=== PATIENT | male | born 1960 | race Caucasian/White ===

== ENCOUNTER 2021-07-06 20:00 | Inpatient (IN) | payer MEDICARE, MEDICAID ==
[~2021-07-06] VITALS: Ht 167.6 cm; Wt 82.9 kg
[~2021-07-06 20:00] MED LIST: ALBU2.5V5 NEB; ALEN70TA71 PO; APIX5TAB PO; ASPI81TA59 PO; ATOR20TA58 PO; AZIT250T PO; BENZ1LOZ48 MM; CEFD300C PO; CLON1TAB PO; CLONAZEPAM1 MG PO; DEXA4TAB PO; DILT120C99 PO; DOXY-96 PO; DOXY100T PO; DULO30CA2 PO; HYDR-2761 PO; HYDR12.575 PO; IPRA3AMP29 NEB; LACT1CAP6 PO; LISI10TA PO; METH40VI IJ; OMEP40CA7 PO; ORPH100T PO; OXYC5TAB4 PO; PANT40GR PO; PRED1TAB3 PO; PRED20TA PO; PRIM50TA24 PO; QUET300T5 PO; ROFL500T7 PO; TAMS0.4C97 PO
--- NOTE | 2021-07-06 20:00 | NUR ---
Admit from [facility] via EMS. Pt states he was standing on a bed, reaching for the vent that was high on the wall, and fell off bed. C/o sharp lower back pain rating 9/10. C/o chronic numbness/tingling of left arm. Wears dark glasses, "the light hurts my eyes." Has bilateral arm tremors. States he is homeless and sometimes stays w/ his son in a hotel. Had Covid May 2021, on vent here at [facility], no vaccine received.
[2021-07-06] MEDS ORDERED: HYDROcodone/APAP 10/325 1 TAB TABLET PO PRN (21:30)
[2021-07-06] MEDS ORDERED: ACETAMINOPHEN 325 MG TABLET. PO PRN (21:45)
[2021-07-06 22:18] LABS: BASO % 0 % (0-3); EOS % 0 % (0-3); HEMATOCRIT 31.6 % (39.0-53.0); HEMOGLOBIN 10.1 g/dL (13.0-17.5); LYMPH # 1.6 x10^3/uL (1.0-4.8); LYMPH % 19 % (24-48); MEAN CORPUSCULAR HEMOGLOBIN 28 pg (25-35); MEAN CORPUSCULAR HGB CONC 32 g/dL (31-37); MEAN CORPUSCULAR VOLUME 87 fL (79-100); MONO # 0.6 x10^3/uL (0.0-1.1); MONO % 7 % (0-9); NEUT # 5.8 x10^3/uL (1.8-7.7); NEUT % 73 % (31-73); PLATELET COUNT 334 x10^3/uL (140-400); RED BLOOD COUNT 3.62 x10^6/uL (4.30-5.70)
[2021-07-06] MEDS: APIXABAN 5 MG TABLET. PO SCH (22:21)
[2021-07-06] MEDS: QUEtiapine 300 MG TAB.ER.24H. PO SCH (22:21)
[2021-07-06] MEDS: ATORVASTATIN CALCIUM 20 MG TABLET PO SCH (22:21)
[2021-07-06] MEDS: PRIMIDONE 50 MG TABLET PO SCH (22:22)
[2021-07-06] MEDS: clonazePAM 0.5 MG TABLET PO SCH (22:22)
[2021-07-06] MEDS: HYDROmorphone 2 MG/ML VIAL IVP PRN (22:33)
[2021-07-06 22:42] LABS: PROTHROMBIN TIME PATIENT 13.3 SEC (11.7-14.0)
[2021-07-06 22:47] LABS: CALCIUM 7.8 mg/dL (8.5-10.1); CREATININE 0.6 mg/dL (0.7-1.3); GFR 137.4; POTASSIUM 3.7 mmol/L (3.5-5.1)
[2021-07-06 23:00] VITALS: BP 154/97
[2021-07-07] MEDS: KETOROLAC 30 MG/ML VIAL. IVP PRN (02:18)
[2021-07-07 03:00] VITALS: BP 132/86
[2021-07-07] MEDS: HYDROmorphone 2 MG/ML VIAL IVP PRN ×5 (05:10→23:16)
--- NOTE | 2021-07-07 05:26 | NUR ---
Patient's chart states he is + for the following: [place], AFib, hyperthyroid, PTSD, bipolar disease, + HIV, +MRSA. Patient denies all of those conditions. "I don't even know what they mean." Patient states he reached grade 11 in high school and is "somewhat literate."
[2021-07-07] MEDS: ALBUTEROL SULFATE 2.5 MG/3 ML NEBU. NEB PRN (05:40)
[2021-07-07 07:00] VITALS: BP 128/84
[2021-07-07] MEDS: IPRATRPIUM/ALBUTEROL 0.5/2.5MG 3 ML NEBU. NEB SCH ×4 (07:26→19:56)
[2021-07-07] MEDS: PANTOPRAZOLE 40 MG TABLET.DR. PO SCH (07:30)
--- NOTE | 2021-07-07 07:47 | PDOC1 ---
History and Physical Date of Service: DOS: DATE: 07/07/21 TIME: 07:46 Chief Complaint: Chief Complain: Back pain after a fall History of Present Illness: HPI: Patient is a 61-year-old male with past medical history of COPD, hypertension who presents from [facility] ED after a fall experiencing back pain after that fall. Back pain is 7 out of 10 normally for his chronic back pain but after this incident the pain is 10 out of 10. Patient states that he was at a hotel room adjusting the heater on top of his bed and then he slipped and fell. Patient states he landed on the lower side of his back. Denies any syncope or loss of consciousness or dizziness. Patient is on 3 L home O2 for his COPD. Patient did have Covid pneumonia 1 month ago. Denies fevers, chest pain, abdom inal pain, diarrhea, bladder or bowel incontinence or numbness to his lower extremities. Past Medical/Surgical History: PMH/PSH: History of anemia, asthma, CAD, COPD, hypertension, Covid pneumonia 1 month ago, chronic back pain Tonsillectomy Allergies: Allergies: Coded Allergies: lactose (Verified Allergy, Intermediate, Unknown, 07/06/21) "sneeze" Family History: Family History: Reviewed with no relevant findings Social History: Social History: Former smoker, quit about 1 year ago. Denies any alcohol or drug abuse Current Medications: Current Medications Current Medications Acetaminophen/ Hydrocodone Bitart (Lortab 10/325) 1 tab PRN Q6HRS PRN PO PAIN; Start 07/06/21 at 21:30 Ketorolac Tromethamine (Toradol 30mg Vial) 30 mg PRN Q6HRS PRN IVP INFLAMMATION Last administered on 07/07/21at 02:18; Start 07/06/21 at 21:30; Stop 07/11/21 at 21:29 Hydromorphone HCl (Dilaudid) 0.2 mg PRN Q2HRS PRN IVP PAIN Last administered on 07/07/21at 05:10; Start 07/06/21 at 21:30 Albuterol Sulfate (Ventolin Neb Soln) 2.5 mg PRN Q4HRS PRN NEB SHORTNESS OF BREATH Last administered on 07/07/21at 05:40; Start 07/06/21 at 21:45 Atorvastatin Calcium (Lipitor) 20 mg HS PO Last administered on 07/06/21at 22:21; Start 07/06/21 at 22:00 Albuterol/ Ipratropium (Duoneb) 3 ml RTQID NEB Last administered on 07/07/21at 07:26; Start 07/07/21 at 08:00 Primidone (Mysoline) 50 mg BID PO Last administered on 07/06/21at 22:22; Start 07/06/21 at 22:00 Roflumilast (Daliresp) 500 mcg DAILY PO ; Start 07/07/21 at 09:00 Clonazepam (KlonoPIN) 1 mg TID PO Last administered on 07/06/21at 22:22; Start 07/06/21 at 22:00 Non-Formulary Medication (Omeprazole ) 1 cap DAILY PO ; Start 07/07/21 at 09:00; Status UNV Quetiapine Fumarate (SEROquel XR) 300 mg QHS PO Last administered on 07/06/21at 22:21; Start 07/06/21 at 22:00 Acetaminophen (Tylenol) 650 mg PRN Q6HRS PRN PO MILD PAIN / TEMP > 100.3'F; Start 07/06/21 at 21:45 Lisinopril (Prinivil) 10 mg DAILY PO ; Start 07/07/21 at 09:00 Apixaban (Eliquis) 5 mg BID PO Last administered on 07/06/21at 22:21; Start 07/06/21 at 22:00 Diltiazem HCl (Cardizem 24hr Cd) 120 mg DAILYBFRSUP PO ; Start 07/07/21 at 17:00 Prednisone (Prednisone) 5 mg DAILY PO ; Start 07/07/21 at 09:00 Pantoprazole Sodium (Protonix) 40 mg DAILYAC PO ; Start 07/07/21 at 07:30 Influenza Virus Vaccine Quadrival (Flulaval Quad [id number] Syringe) 0.5 ml ONCE ONCE VAX IM ; Start 07/07/21 at 09:00; Stop 07/07/21 at 09:01 Active Scripts Active Oxycodone Hcl Immed.release (Oxycodone Hcl) 5 Mg Tablet 30 Mg PO PRN Q6HRS PRN 15 Days Dexamethasone 4 Mg Tablet 1 Tab PO DAILY 7 Days Klonopin (Clonazepam) 1 Mg Tablet 1 Mg PO TID 30 Days Reported Seroquel (Quetiapine Fumarate) 300 Mg Tablet 1 Tab PO QHS Mysoline (Primidone) 50 Mg Tablet 1 Tab PO BID 30 Days Duoneb 0.5-3(2.5) Mg/3 Ml (Albuterol/Ipratropium) 3 Ml Ampul.neb 3 Ml NEB QID Atorvastatin Calcium 20 Mg Tablet 1 Tab PO HS Omeprazole 40 Mg Capsule.dr 1 Cap PO DAILY Alendronate Sodium 70 Mg Tablet 70 Mg PO WEEKLY Daliresp (Roflumilast) 500 Mcg Tablet 500 Mcg PO DAILY Albuterol Sulfate Neb Soln (Albuterol Sulfate) 2.5 Mg/3 Ml Vial.neb 1 Vial NEB PRN Q4HRS ROS: Review of Systems Review of System REVIEW OF SYSTEMS: GENERAL: Denies weakness SKIN: No bruising, hair changes or rashes. EYES: No blurred, double or loss of vision. NOSE AND THROAT: No history of nosebleeds, hoarseness or sore throat. HEART: No history of palpitations, chest pain or shortness of breath on exertion. LUNGS: Denies cough, hemoptysis, wheezing or shortness of breath. GASTROINTESTINAL: Denies changes in appetite, nausea, vomiting, diarrhea or constipation. GENITOURINARY: No history of frequency, urgency, hesitancy or nocturia. NEUROLOGIC: Denies history of numbness, tingling, or tremor. PSYCHIATRIC: No history of panic, anxiety or depression. ENDOCRINE: No history of heat or cold intolerance, polyuria or polydipsia. EXTREMITIES: Denies joint pain, pain on walking or stiffness. Physical Exam: Vital Signs: Vital Signs Date Time Temp Pulse Resp B/P (MAP) Pulse Ox O2 Delivery O2 Flow Rate FiO2 07/07/21 07:31 94 Nasal Cannula 3.0 07/07/21 05:10 20 07/07/21 03:00 98.1 118 132/86 (101) 98.1 Physcial Exam: GEN: No apparent distress. Alert and oriented HEENT: Normal cephalic, atraumatic, external auditory canals are patent EYES: Extraocular muscles are intact, pupil are equally round and reactive to light and accommodation MUSCULOSKELETAL: Well developed , well nourished, good range of motion ENDOCRINE: No thyromegaly was palpated LYMPHATICS: No cervical chain or axillary nodes were noted HEMATOPOIETIC: No bruising NECK: Supple, no JVD, no thyromegaly was noted LUNGS: Clear to auscultation in all lung paz without rhonchi or wheezing HEART: RRR, S!, S2 present. Peripheral pulses intact, no obvious murmurs noted ABDOMEN: Soft, nontender. Positive bowel sounds, no organomegaly, normal bowel sounds EXTREMITIES: Without clubbing, cyanosis, or edema. Pedal pulses intact. Ne gative Homans sign NEUROLOGIC: Normal speech and tone. A&O x 3, moves all extremities, no obvious focal deficits PSYCHIATRIC: Normal affect, normal mood. Stable SKIN: No ulcerations or rashes, good skin turgor, no jaundice VASCULAR: Good capillary refill, neurovascular bundle appears to be intact Labs: Labs: Laboratory Tests Test 07/06/21 22:00 White Blood Count 8.0 x10^3/uL (4.0-11.0) Red Blood Count 3.62 x10^6/uL (4.30-5.70) Hemoglobin 10.1 g/dL (13.0-17.5) Hematocrit 31.6 % (39.0-53.0) Mean Corpuscular Volume 87 fL (79-100) Mean Corpuscular Hemoglobin 28 pg (25-35) Mean Corpuscular Hemoglobin Concent 32 g/dL (31-37) Red Cell Distribution Width 15.0 % (11.5-14.5) Platelet Count 334 x10^3/uL (140-400) Neutrophils (%) (Auto) 73 % (31-73) Lymphocytes (%) (Auto) 19 % (24-48) Monocytes (%) (Auto) 7 % (0-9) Eosinophils (%) (Auto) 0 % (0-3) Basophils (%) (Auto) 0 % (0-3) Neutrophils # (Auto) 5.8 x10^3/uL (1.8-7.7) Lymphocytes # (Auto) 1.6 x10^3/uL (1.0-4.8) Monocytes # (Auto) 0.6 x10^3/uL (0.0-1.1) Eosinophils # (Auto) 0.0 x10^3/uL (0.0-0.7) Basophils # (Auto) 0.0 x10^3/uL (0.0-0.2) Prothrombin Time 13.3 SEC (11.7-14.0) Prothromb Time International Ratio 1.0 (0.8-1.1) Sodium Level 141 mmol/L (136-145) Potassium Level 3.7 mmol/L (3.5-5.1) Chloride Level 100 mmol/L (98-107) Carbon Dioxide Level 41 mmol/L (21-32) Anion Gap 0 (6-14) Blood Urea Nitrogen 10 mg/dL (8-26) Creatinine 0.6 mg/dL (0.7-1.3) Estimated GFR (Cockcroft-Gault) 137.4 Glucose Level 90 mg/dL (70-99) Calcium Level 7.8 mg/dL (8.5-10.1) Laboratory Tests Test 07/06/21 22:00 White Blood Count 8.0 x10^3/uL (4.0-11.0) Red Blood Count 3.62 x10^6/uL (4.30-5.70) Hemoglobin 10.1 g/dL (13.0-17.5) Hematocrit 31.6 % (39.0-53.0) Mean Corpuscular Volume 87 fL (79-100) Mean Corpuscular Hemoglobin 28 pg (25-35) Mean Corpuscular Hemoglobin Concent 32 g/dL (31-37) Red Cell Distribution Width 15.0 % (11.5-14.5) Platelet Count 334 x10^3/uL (140-400) Neutrophils (%) (Auto) 73 % (31-73) Lymphocytes (%) (Auto) 19 % (24-48) Monocytes (%) (Auto) 7 % (0-9) Eosinophils (%) (Auto) 0 % (0-3) Basophils (%) (Auto) 0 % (0-3) Neutrophils # (Auto) 5.8 x10^3/uL (1.8-7.7) Lymphocytes # (Auto) 1.6 x10^3/uL (1.0-4.8) Monocytes # (Auto) 0.6 x10^3/uL (0.0-1.1) Eosinophils # (Auto) 0.0 x10^3/uL (0.0-0.7) Basophils # (Auto) 0.0 x10^3/uL (0.0-0.2) Prothrombin Time 13.3 SEC (11.7-14.0) Prothromb Time International Ratio 1.0 (0.8-1.1) Sodium Level 141 mmol/L (136-145) Potassium Level 3.7 mmol/L (3.5-5.1) Chloride Level 100 mmol/L (98-107) Carbon Dioxide Level 41 mmol/L (21-32) Anion Gap 0 (6-14) Blood Urea Nitrogen 10 mg/dL (8-26) Creatinine 0.6 mg/dL (0.7-1.3) Estimated GFR (Cockcroft-Gault) 137.4 Glucose Level 90 mg/dL (70-99) Calcium Level 7.8 mg/dL (8.5-10.1) Images: Images CT images reviewed at [facility] showing an acute L1 vertebral compression fracture with mild retropulsion and mild to moderate central stenosis. Degenerative changes resulting in mid central stenosis at L4-L5 Assessment/Plan Assessment/Plan Acute L1 compression fracture with mild retropulsion History of COPD History of hypertension History of CAD History of asthma Admit to hospitalist service for further management Neurosurgery consultappreciate recommendations. For now no surgical intervention. Pending TLSO brace Pain specialist consult with Dr helms. IV n.p.o. pain control Pending vitamin D level PT OT evaluation when cleared by neurosurgery Lovenox for DVT prophylaxis Cardiac diet CODE STATUS full Discussed with RN and SW Disposition inpatient management as above DPOA: Undesignated Justifications for Admission Other Justification SIMONA JACK MD Jul 07, 2021 07:47
[2021-07-07] MEDS: ROFLUMILAST 500 MCG TABLET. PO SCH (08:23)
[2021-07-07] MEDS: APIXABAN 5 MG TABLET. PO SCH ×2 (08:24→20:08)
[2021-07-07] MEDS: LISINOPRIL 10 MG TABLET PO SCH (08:24)
[2021-07-07] MEDS: PRIMIDONE 50 MG TABLET PO SCH ×2 (08:24→20:08)
[2021-07-07] MEDS: predniSONE 5 MG TABLET PO SCH (08:24)
[2021-07-07] MEDS ORDERED: FLU VACC QUAD 21-22 (6MOS+) PF 0.5 ML SYRINGE. VAX IM ONE (09:00)
[2021-07-07] MEDS: clonazePAM 0.5 MG TABLET PO SCH ×3 (09:00→20:08)
[2021-07-07] MEDS ORDERED: NON FORMULARY ITEM (Omeprazole 1 CAP) PO SCH (09:00)
--- NOTE | 2021-07-07 10:55 | RAD ---
MR LUMBAR SPINE [id number] History: Reason: Focus on L1 compression fracture / Spl. Instructions: / History: Technique: Multiplanar, multi sequential MR imaging was performed of the lumbar spine. Comparison: CT July 06, 2021 Findings: Acute L1 vertebral body fracture involving the anterior and posterior aspects of the vertebral body. Moderate compression deformity centrally approximately 50 percent height loss. Fluid within the fract ure cleft. There is paravertebral edema with right psoas intramuscular edema. There is retropulsion c ontributing to moderate canal narrowing. Conus terminates at the normal location. No evidence of nerve root clumping. L1-L2: Small disc bulge. Mild facet arthropathy. No canal narrowing at the disc space. No neuroforam inal narrowing. L2-L3: Minimal disc bulge. No canal or neuroforaminal narrowing. L3-L4: Small disc bulge. Mild facet arthropathy. No canal or neuroforaminal narrowing. L4-L5: Small disc extrusion extending slightly inferiorly. Minimal canal narrowing. Subarticular rec ess narrowing. Mild facet arthropathy. Mild bilateral neuroforaminal narrowing. L5-S1: Minimal disc bulge. Mild facet arthropathy. No canal narrowing. Mild bilateral neuroforaminal narrowing. Impression: 1. Acute L1 vertebral body fracture with retropulsion contributing to moderate canal narrowing. 2. L1 paravertebral edema with right psoas intramuscular edema. 3. Mild lumbar spondylosis most prominent L4-5. Electronically signed by: Dann Godfrey DO (07/07/2021 10:53 AM) [id number]
[2021-07-07 11:00] VITALS: BP 120/79
--- NOTE | 2021-07-07 13:03 | PDOC ---
Provider Note Date of Service: DATE: 07/07/21 TIME: 12:59 Provider Note Patient seen and examined consulted for L1 compression fracture fell off bed c/o back pain, denies LE symptoms, no B/B issues exam- back flat, tender, no echymosis, neuro inact review CT/ MRI- Acute moderately severe L1 compression fracture brace ordered Dr. Trinh consulted PT Hopefully surgery can be avoided will follow Justifications for Admission Other Justification LIZ GRIFFIN MD Jul 07, 2021 13:03
[2021-07-07 15:00] VITALS: BP 124/81
--- NOTE | 2021-07-07 15:46 | CONS ---
DATE OF CONSULTATION: 07/07/2021 ATTENDING PHYSICIAN: Nikolay Burrell MD REASON FOR CONSULTATION: The patient was seen at the request of Dr. Kong for rehab evaluation. HISTORY OF PRESENT ILLNESS: This is a 61-year-old right-handed male with known hypertension, chronic obstructive pulmonary disease, was admitted through the Emergency Room at [facility] after experiencing a fall off the bed while adjusting the heater in a hotel room and he complained of severe lower back pain without any radiation to the extremities. The patient was noted with L1 vertebral body compression fracture with retropulsion contributing to moderate canal narrowing and also paravertebral edema with right psoas intramuscular edema, mild lumbar spondylosis, most prominent at L4-L5 and multilevel mild degenerative disk disease and facet degenerative changes. The patient also had mild bilateral neural foraminal narrowing. mainly at L4-L5, L5-S1 level. The patient admits some chronic back pain, but not as bad at present one. Dr. Holly saw him and advised him to obtain lumbar corset. He is awaiting for it. He had mid back pain, more so while he is moving. The patient denies any numbness, tingling sensation in the extremities or any trouble with his bowel or bladder control, but he had an indwelling Velazco catheter since admission. PAST MEDICAL HISTORY: Also includes anemia, asthmatic bronchitis, chronic obstructive pulmonary disease, oxygen dependent at 3 liters per minute since 2011, coronary artery disease, hypertension. He had COVID-19 pneumonia about a month ago. PAST SURGICAL HISTORY: The patient is status post tonsillectomy ALLERGIES: HE IS KNOWN ALLERGIC TO LACTOSE. SOCIAL HISTORY: He lives with his son. Had a flight of stairs to manage with railing. He did not use any assistive devices. He is a former smoker, quit about a year ago. He denies any history of diabetes mellitus. He denies any abuse. PHYSICAL EXAMINATION: On physical exam today revealed a middle-aged male. He is alert, in no acute distress, follows commands appropriately. Moves all 4 extremities voluntarily where he had 4+/5 grade muscle strength. He had minimal to moderate degree of lower thoracic and lumbar paraspinal muscle spasm and tenderness to palpation over lower thoracic and lumbar paraspinal muscles extending over to sacroiliac joint area and straight leg raising test is negative bilaterally. He had 5/5 grade muscle strength in his extremities. Deep tendon reflexes are decreased overall with absent knee and ankle jerks and he had equal perception of touch and pinprick sensation bilaterally. He had painful range of motion of all 4 extremity joints. He is having significant pain while rolling from side to side. I have not tested his transfers or ambulation skills at this time. He had mild skin bruises over his feet other than that his skin is intact. ASSESSMENT: A middle-aged male with recent fall and L1 vertebral body compression fracture with associated degenerative disk disease and degenerative joint disease of lumbar vertebrae without any clinical evidence of lumbar radiculopathy, clinical evidence of peripheral neuropathy. The patient with chronic obstructive pulmonary disease, oxygen dependent, also history of hypertension, coronary artery disease, anemia, asthmatic bronchitis. RECOMMENDATIONS: Agree with the plan for lumbar corset and try to get him up afterwards. If his pain is interfering with his mobility to consider kyphoplasty. Dr. Kong, I appreciate asking me to participate in the care of this interesting patient. I will be glad to see him for followup with you on as needed basis. CARMELITA/SHU/JAREN DR: CARMELITA/alexis TID: [id number]
[2021-07-07] MEDS: tiZANidine 4 MG TABLET. PO SCH ×2 (15:50→22:09)
[2021-07-07] MEDS: LIDOCAINE (700MG/PATCH) PATCH. TD SCH (15:50)
--- NOTE | 2021-07-07 15:52 | NUR ---
SW following. Discussed with RN, pt sometimes stays with his son, 3.5L (uses oxygen at home), NPO. Pt had an MRI today. Possible kypho? SW will continue to follow.
[2021-07-07 19:20] VITALS: BP 122/77
[2021-07-07] MEDS ORDERED: METOPROLOL IV PUSH 5 MG/5 ML VIAL. IVP ONE (20:00)
[2021-07-07] MEDS: LIDO:MAALOX 1:1 20 ML SINGLE DOSE. PO PRN (20:07)
[2021-07-07] MEDS: PATCH REMOVAL. MC SCH (20:08)
[2021-07-07] MEDS: QUEtiapine 300 MG TAB.ER.24H. PO SCH (20:08)
[2021-07-07] MEDS: ATORVASTATIN CALCIUM 20 MG TABLET PO SCH (20:08)
[2021-07-07 23:10] VITALS: BP 124/78
[2021-07-08] MEDS: ALBUTEROL SULFATE 2.5 MG/3 ML NEBU. NEB PRN (00:46)
[2021-07-08 03:10] VITALS: BP 95/58
[2021-07-08] MEDS ORDERED: ALBUMIN HUMAN 25% 100 ML IV ONE (04:00)
[2021-07-08] MEDS ORDERED: HYDROmorphone 2 MG/ML VIAL IVP ONE (04:00)
[2021-07-08] MEDS: tiZANidine 4 MG TABLET. PO SCH ×3 (05:27→21:09)
[2021-07-08 07:00] VITALS: BP 93/48
[2021-07-08] MEDS: IPRATRPIUM/ALBUTEROL 0.5/2.5MG 3 ML NEBU. NEB SCH ×4 (07:30→20:23)
[2021-07-08] MEDS: LIDOCAINE (700MG/PATCH) PATCH. TD SCH (09:00)
[2021-07-08] MEDS: APIXABAN 5 MG TABLET. PO SCH ×2 (09:00→21:00)
[2021-07-08] MEDS: LISINOPRIL 10 MG TABLET PO SCH (09:00)
--- NOTE | 2021-07-08 09:26 | PDOC ---
PROGRESS NOTES Date of Service DATE: 07/08/21 TIME: 09:23 Subjective Subjective No new complaints. Objective Objective Vital Signs Date Time Temp Pulse Resp B/P (MAP) Pulse Ox O2 Delivery O2 Flow Rate FiO2 07/08/21 08:00 Nasal Cannula 3.5 07/08/21 07:30 89 07/08/21 07:00 97.8 98 24 93/48 (63) 97.8 Intake and Output 07/08/21 07:00 Intake Total 420 ml Output Total 365 ml Balance 55 ml Intake Oral 420 ml Output Urine Total 365 ml Physical Exam Physical Exam He is resting supine in bed and has not received lumbar corset yet and he had indwelling Velazco catheter in place. Plan Plan of Care To see how he does getting up and walking with brace on and if it helps ease his pain,home with home health follow up or transfer to SNF depending on his ability to get around. Comment Review of Relevant I have reviewed the following items ben (where applicable) has been applied. Labs Laboratory Tests Test 07/06/21 22:00 07/07/21 13:49 White Blood Count 8.0 x10^3/uL (4.0-11.0) Red Blood Count 3.62 x10^6/uL (4.30-5.70) Hemoglobin 10.1 g/dL (13.0-17.5) Hematocrit 31.6 % (39.0-53.0) Mean Corpuscular Volume 87 fL (79-100) Mean Corpuscular Hemoglobin 28 pg (25-35) Mean Corpuscular Hemoglobin Concent 32 g/dL (31-37) Red Cell Distribution Width 15.0 % (11.5-14.5) Platelet Count 334 x10^3/uL (140-400) Neutrophils (%) (Auto) 73 % (31-73) Lymphocytes (%) (Auto) 19 % (24-48) Monocytes (%) (Auto) 7 % (0-9) Eosinophils (%) (Auto) 0 % (0-3) Basophils (%) (Auto) 0 % (0-3) Neutrophils # (Auto) 5.8 x10^3/uL (1.8-7.7) Lymphocytes # (Auto) 1.6 x10^3/uL (1.0-4.8) Monocytes # (Auto) 0.6 x10^3/uL (0.0-1.1) Eosinophils # (Auto) 0.0 x10^3/uL (0.0-0.7) Basophils # (Auto) 0.0 x10^3/uL (0.0-0.2) Prothrombin Time 13.3 SEC (11.7-14.0) Prothromb Time International Ratio 1.0 (0.8-1.1) Sodium Level 141 mmol/L (136-145) Potassium Level 3.7 mmol/L (3.5-5.1) Chloride Level 100 mmol/L (98-107) Carbon Dioxide Level 41 mmol/L (21-32) Anion Gap 0 (6-14) Blood Urea Nitrogen 10 mg/dL (8-26) Creatinine 0.6 mg/dL (0.7-1.3) Estimated GFR (Cockcroft-Gault) 137.4 Glucose Level 90 mg/dL (70-99) Calcium Level 7.8 mg/dL (8.5-10.1) 25-Hydroxy Vitamin D Total 6.8 ng/mL (30-100) Laboratory Tests Test 07/07/21 13:49 25-Hydroxy Vitamin D Total 6.8 ng/mL (30-100) Medications Current Medications Acetaminophen/ Hydrocodone Bitart (Lortab 10/325) 1 tab PRN Q6HRS PRN PO PAIN; Start 07/06/21 at 21:30 Ketorolac Tromethamine (Toradol 30mg Vial) 30 mg PRN Q6HRS PRN IVP INFLAMMATION Last administered on 07/07/21at 02:18; Start 07/06/21 at 21:30; Stop 07/11/21 at 21:29 Hydromorphone HCl (Dilaudid) 0.2 mg PRN Q2HRS PRN IVP PAIN Last administered on 07/07/21at 23:16; Start 07/06/21 at 21:30 Albuterol Sulfate (Ventolin Neb Soln) 2.5 mg PRN Q4HRS PRN NEB SHORTNESS OF BREATH Last administered on 07/08/21at 00:46; Start 07/06/21 at 21:45 Atorvastatin Calcium (Lipitor) 20 mg HS PO Last administered on 07/07/21at 20:08; Start 07/06/21 at 22:00 Albuterol/ Ipratropium (Duoneb) 3 ml RTQID NEB Last administered on 07/08/21at 07:30; Start 07/07/21 at 08:00 Primidone (Mysoline) 50 mg BID PO Last administered on 07/07/21at 20:08; Start 07/06/21 at 22:00 Roflumilast (Daliresp) 500 mcg DAILY PO Last administered on 07/07/21at 08:23; Start 07/07/21 at 09:00 Clonazepam (KlonoPIN) 1 mg TID PO Last administered on 07/07/21at 20:08; Start 07/06/21 at 22:00 Non-Formulary Medication (Omeprazole ) 1 cap DAILY PO ; Start 07/07/21 at 09:00; Status UNV Quetiapine Fumarate (SEROquel XR) 300 mg QHS PO Last administered on 07/07/21at 20:08; Start 07/06/21 at 22:00 Acetaminophen (Tylenol) 650 mg PRN Q6HRS PRN PO MILD PAIN / TEMP > 100.3'F; Start 07/06/21 at 21:45 Lisinopril (Prinivil) 10 mg DAILY PO Last administered on 07/07/21at 08:24; Start 07/07/21 at 09:00 Apixaban (Eliquis) 5 mg BID PO Last administered on 07/07/21at 20:08; Start 07/06/21 at 22:00 Diltiazem HCl (Cardizem 24hr Cd) 120 mg DAILYBFRSUP PO Last administered on 07/07/21at 18:04; Start 07/07/21 at 17:00 Prednisone (Prednisone) 5 mg DAILY PO Last administered on 07/07/21at 08:24; Start 07/07/21 at 09:00 Pantoprazole Sodium (Protonix) 40 mg DAILYAC PO ; Start 07/07/21 at 07:30 Influenza Virus Vaccine Quadrival (Flulaval Quad [id number] Syringe) 0.5 ml ONCE ONCE VAX IM Last administered on 07/07/21at 10:27; Start 07/07/21 at 09:00; Stop 07/07/21 at 09:01; Status DC Tizanidine HCl (Zanaflex) 4 mg Q8HRS PO Last administered on 07/08/21at 05:27; Start 07/07/21 at 15:00 Lidocaine (Lidoderm) 1 patch DAILY TD Last administered on 07/07/21at 15:50; Start 07/07/21 at 15:00 Miscellaneous (Lidoderm Patch Removal) 1 ea QHS MC Last administered on 07/07/21at 20:08; Start 07/07/21 at 21:00 Multi-Ingredient Mouthwash/Gargle (Gi Cocktail) 20 ml PRN QID PRN PO abdominal pain Last administered on 07/07/21at 20:07; Start 07/07/21 at 20:00 Metoprolol Tartrate (Lopressor Vial) 5 mg 1X ONCE IVP Last administered on 07/07/21at 20:09; Start 07/07/21 at 20:00; Stop 07/07/21 at 20:01; Status DC Albumin Human 100 ml @ 100 mls/hr 1X ONCE IV Last administered on 07/08/21at 04:15; Start 07/08/21 at 04:00; Stop 07/08/21 at 04:59; Status DC Hydromorphone HCl (Dilaudid) 0.4 mg 1X ONCE IVP Last administered on 07/08/21at 05:28; Start 07/08/21 at 04:00; Stop 07/08/21 at 04:01; Status DC Active Scripts Active Oxycodone Hcl Immed.release (Oxycodone Hcl) 5 Mg Tablet 30 Mg PO PRN Q6HRS PRN 15 Days Dexamethasone 4 Mg Tablet 1 Tab PO DAILY 7 Days Klonopin (Clonazepam) 1 Mg Tablet 1 Mg PO TID 30 Days Reported Seroquel (Quetiapine Fumarate) 300 Mg Tablet 1 Tab PO QHS Mysoline (Primidone) 50 Mg Tablet 1 Tab PO BID 30 Days Duoneb 0.5-3(2.5) Mg/3 Ml (Albuterol/Ipratropium) 3 Ml Ampul.neb 3 Ml NEB QID Atorvastatin Calcium 20 Mg Tablet 1 Tab PO HS Omeprazole 40 Mg Capsule.dr 1 Cap PO DAILY Alendronate Sodium 70 Mg Tablet 70 Mg PO WEEKLY Daliresp (Roflumilast) 500 Mcg Tablet 500 Mcg PO DAILY Albuterol Sulfate Neb Soln (Albuterol Sulfate) 2.5 Mg/3 Ml Vial.neb 1 Vial NEB PRN Q4HRS Vitals/I & O Vital Sign - Last 24 Hours 07/07/21 07/07/21 07/07/21 07/07/21 11:00 11:42 15:00 15:18 Temp 97.8 97.6 97.8 97.6 Pulse 113 117 Resp 18 17 B/P (MAP) 120/79 (93) 124/81 (95) Pulse Ox 97 95 92 95 O2 Delivery Nasal Cannula Nasal Cannula Nasal Cannula Nasal Cannula O2 Flow Rate 3.5 3.0 3.5 3.0 07/07/21 07/07/21 07/07/21 07/07/21 18:04 19:20 19:50 19:58 Temp 98.8 98.8 Pulse 117 122 Resp 26 B/P (MAP) 124/81 122/77 (92) Pulse Ox 91 93 O2 Delivery Nasal Cannula Nasal Cannula Nasal Cannula O2 Flow Rate 3.5 3.5 3.0 07/07/21 07/07/21 07/07/21 07/07/21 20:09 21:02 22:09 23:10 Temp 98.7 98.7 Pulse 122 107 Resp 24 B/P (MAP) 122/77 124/78 (93) Pulse Ox 91 O2 Delivery Nasal Cannula Nasal Cannula Nasal Cannula O2 Flow Rate 3.5 3.5 3.5 07/07/21 07/08/21 07/08/21 07/08/21 23:16 00:12 03:10 05:28 Temp 98.6 98.6 Pulse 100 Resp 24 B/P (MAP) 95/58 (70) Pulse Ox 92 O2 Delivery Nasal Cannula Nasal Cannula Nasal Cannula Nasal Cannula O2 Flow Rate 3.5 3.5 3.5 3.5 07/08/21 07/08/21 07/08/21 07/08/21 06:21 07:00 07:30 08:00 Temp 97.8 97.8 Pulse 98 Resp 24 B/P (MAP) 93/48 (63) Pulse Ox 90 89 O2 Delivery Nasal Cannula Nasal Cannula Nasal Cannula Nasal Cannula O2 Flow Rate 3.5 5.0 4.0 3.5 Intake and Output 07/07/21 07/07/21 07/08/21 15:00 23:00 07:00 Intake Total 180 ml 240 ml Output Total 0 ml 215 ml 150 ml Balance 180 ml -215 ml 90 ml Justifications for Admission Other Justification JORGE OWEN MD Jul 08, 2021 09:26
[2021-07-08] MEDS: LIDO:MAALOX 1:1 20 ML SINGLE DOSE. PO PRN ×2 (09:36→20:00)
[2021-07-08] MEDS: PANTOPRAZOLE 40 MG TABLET.DR. PO SCH (09:36)
[2021-07-08] MEDS: PRIMIDONE 50 MG TABLET PO SCH ×2 (09:37→21:09)
[2021-07-08] MEDS: clonazePAM 0.5 MG TABLET PO SCH ×3 (09:37→21:09)
[2021-07-08] MEDS: predniSONE 5 MG TABLET PO SCH (09:37)
[2021-07-08] MEDS: ROFLUMILAST 500 MCG TABLET. PO SCH (09:37)
[2021-07-08 10:39] LABS: ALBUMIN 2.8 g/dL (3.4-5.0); ALBUMIN/GLOBULIN RATIO 0.9 (1.0-1.7); CREATININE 0.7 mg/dL (0.7-1.3); MAGNESIUM 1.9 mg/dL (1.8-2.4); POTASSIUM 4.4 mmol/L (3.5-5.1); TOTAL BILIRUBIN 0.3 mg/dL (0.2-1.0)
[2021-07-08 11:00] VITALS: BP 129/78
--- NOTE | 2021-07-08 13:29 | PDOC ---
[employer] PROGRESS NOTE Date of Service DOS: DATE: 07/08/21 TIME: 13:27 Chief Complaint Chief Complaint Assessment/Plan Acute L1 compression fracture with mild retropulsion History of COPD home O2 of 3 L nasal cannula History of hypertension History of CAD History of asthma Attempt ambulation with TLSO brace if patient has pain then he will proceed with IR for kyphoplasty Neurosurgery consultappreciate recommendations. For now no surgical intervention. Pain specialist consult with Dr helms. IV n.p.o. pain control Pending vitamin D level PT OT evaluation when [facility] Cardiac diet CODE STATUS full Discussed with RN and SW Disposition inpatient management as above DPOA: Undesignated History of Present Illness History of Present Illness 61-year-old male with past medical history of COPD, hypertension who presents from [facility] ED after a fall experiencing back pain after that fall. Back pain is 7 out of 10 normally for his chronic back pain but after this incident the pain is 10 out of 10. Patient states that he was at a hotel room adjusting the heater on top of his bed and then he slipped and fell. Patient states he landed on the lower side of his back. Denies any syncope or loss of consciousness or dizziness. Patient is on 3 L home O2 for his COPD. Patient did have Covid pneumonia 1 month ago. Denies fevers, chest pain, abdominal pain, diarrhea, bladder or bowel incontinence or numbness to his lower extremities. 07/08/2021 No acute events overnight. Patient seen and examined bedside complaining of some shortness of breath. Increasing requirements of O2 to 5 L nasal cannula. Will initiate breathing treatments as needed. Will obtain a cortisol level in the a.m. Patient states that he was taking prednisone 50 mg for his COPD. Patient's chart, labs, images were reviewed and discussed with RN Vitals/I&O Vitals/I&O: Vital Signs Date Time Temp Pulse Resp B/P (MAP) Pulse Ox O2 Delivery O2 Flow Rate FiO2 07/08/21 11:13 90 Nasal Cannula 5.0 07/08/21 11:00 98.1 111 24 129/78 (95) 98.1 I & O 07/07/21 07/07/21 07/08/21 15:00 23:00 07:00 Intake Total 180 ml 240 ml Output Total 0 ml 215 ml 150 ml Balance 180 ml -215 ml 90 ml Physical Exam General: Alert, Oriented X3, Cooperative Heart: Regular rate Lungs: Crackles Abdomen: Normal bowel sounds Extremities: No clubbing Skin: No rashes Labs Labs: Laboratory Tests Test 07/07/21 13:49 07/08/21 10:09 25-Hydroxy Vitamin D Total 6.8 ng/mL (30-100) Sodium Level 140 mmol/L (136-145) Potassium Level 4.4 mmol/L (3.5-5.1) Chloride Level 99 mmol/L (98-107) Carbon Dioxide Level 39 mmol/L (21-32) Anion Gap 2 (6-14) Blood Urea Nitrogen 17 mg/dL (8-26) Creatinine 0.7 mg/dL (0.7-1.3) Estimated GFR (Cockcroft-Gault) 115.0 BUN/Creatinine Ratio 24 (6-20) Glucose Level 97 mg/dL (70-99) Calcium Level 8.0 mg/dL (8.5-10.1) Magnesium Level 1.9 mg/dL (1.8-2.4) Total Bilirubin 0.3 mg/dL (0.2-1.0) Aspartate Amino Transf (AST/SGOT) 11 U/L (15-37) Alanine Aminotransferase (ALT/SGPT) 15 U/L (16-63) Alkaline Phosphatase 76 U/L (46-116) Total Protein 6.0 g/dL (6.4-8.2) Albumin 2.8 g/dL (3.4-5.0) Albumin/Globulin Ratio 0.9 (1.0-1.7) Thyroid Stimulating Hormone (TSH) 0.396 uIU/mL (0.358-3.74) Comment Review of Relevant I have reviewed the following items ben (where applicable) has been applied. Medications: Current Medications Medications (Trade) Dose Ordered Sig/Dayne Route PRN Reason Start Time Stop Time Status Last Admin Dose Admin Diltiazem HCl (Cardizem 24hr Cd) 120 mg DAILYBFRSUP PO 07/07/21 17:00 07/07/21 18:04 Tizanidine HCl (Zanaflex) 4 mg Q8HRS PO 07/07/21 15:00 07/08/21 12:31 Lidocaine (Lidoderm) 1 patch DAILY TD 07/07/21 15:00 07/07/21 15:50 Miscellaneous (Lidoderm Patch Removal) 1 ea QHS MC 07/07/21 21:00 07/07/21 20:08 Multi-Ingredient Mouthwash/Gargle (Gi Cocktail) 20 ml PRN QID PRN PO abdominal pain 07/07/21 20:00 07/08/21 09:36 Metoprolol Tartrate (Lopressor Vial) 5 mg 1X ONCE IVP 07/07/21 20:00 07/07/21 20:01 DC 07/07/21 20:09 Albumin Human 100 ml @ 100 mls/hr 1X ONCE IV 07/08/21 04:00 07/08/21 04:59 DC 07/08/21 04:15 Hydromorphone HCl (Dilaudid) 0.4 mg 1X ONCE IVP 07/08/21 04:00 07/08/21 04:01 DC 07/08/21 05:28 Justifications for Admission Other Justification SIMONA JACK MD Jul 08, 2021 13:29
--- NOTE | 2021-07-08 13:45 | PDOC ---
PROGRESS NOTES Date of Service DATE: 07/08/21 TIME: 13:41 Subjective Subjective resting in bed continues with back pain denies LE symptoms received TLSO Objective Objective Vital Signs Date Time Temp Pulse Resp B/P (MAP) Pulse Ox O2 Delivery O2 Flow Rate FiO2 07/08/21 11:13 90 Nasal Cannula 5.0 07/08/21 11:00 98.1 111 24 129/78 (95) 98.1 Intake and Output 07/08/21 07:00 Intake Total 420 ml Output Total 365 ml Balance 55 ml Intake Oral 420 ml Output Urine Total 365 ml Physical Exam General: Oriented X3, Cooperative Neuro: Other (Normal strength in LE) COMMENT byers Plan Plan of Care Acute moderate L1 compression fracture if not able to be up and ambulate with brace, will need to consider lumbar surgery SCDs Comment Review of Relevant I have reviewed the following items ben (where applicable) has been applied. Labs Laboratory Tests Test 07/06/21 22:00 07/07/21 13:49 07/08/21 10:09 White Blood Count 8.0 x10^3/uL (4.0-11.0) Red Blood Count 3.62 x10^6/uL (4.30-5.70) Hemoglobin 10.1 g/dL (13.0-17.5) Hematocrit 31.6 % (39.0-53.0) Mean Corpuscular Volume 87 fL (79-100) Mean Corpuscular Hemoglobin 28 pg (25-35) Mean Corpuscular Hemoglobin Concent 32 g/dL (31-37) Red Cell Distribution Width 15.0 % (11.5-14.5) Platelet Count 334 x10^3/uL (140-400) Neutrophils (%) (Auto) 73 % (31-73) Lymphocytes (%) (Auto) 19 % (24-48) Monocytes (%) (Auto) 7 % (0-9) Eosinophils (%) (Auto) 0 % (0-3) Basophils (%) (Auto) 0 % (0-3) Neutrophils # (Auto) 5.8 x10^3/uL (1.8-7.7) Lymphocytes # (Auto) 1.6 x10^3/uL (1.0-4.8) Monocytes # (Auto) 0.6 x10^3/uL (0.0-1.1) Eosinophils # (Auto) 0.0 x10^3/uL (0.0-0.7) Basophils # (Auto) 0.0 x10^3/uL (0.0-0.2) Prothrombin Time 13.3 SEC (11.7-14.0) Prothromb Time International Ratio 1.0 (0.8-1.1) Sodium Level 141 mmol/L (136-145) 140 mmol/L (136-145) Potassium Level 3.7 mmol/L (3.5-5.1) 4.4 mmol/L (3.5-5.1) Chloride Level 100 mmol/L (98-107) 99 mmol/L (98-107) Carbon Dioxide Level 41 mmol/L (21-32) 39 mmol/L (21-32) Anion Gap 0 (6-14) 2 (6-14) Blood Urea Nitrogen 10 mg/dL (8-26) 17 mg/dL (8-26) Creatinine 0.6 mg/dL (0.7-1.3) 0.7 mg/dL (0.7-1.3) Estimated GFR (Cockcroft-Gault) 137.4 115.0 Glucose Level 90 mg/dL (70-99) 97 mg/dL (70-99) Calcium Level 7.8 mg/dL (8.5-10.1) 8.0 mg/dL (8.5-10.1) 25-Hydroxy Vitamin D Total 6.8 ng/mL (30-100) BUN/Creatinine Ratio 24 (6-20) Magnesium Level 1.9 mg/dL (1.8-2.4) Total Bilirubin 0.3 mg/dL (0.2-1.0) Aspartate Amino Transf (AST/SGOT) 11 U/L (15-37) Alanine Aminotransferase (ALT/SGPT) 15 U/L (16-63) Alkaline Phosphatase 76 U/L (46-116) Total Protein 6.0 g/dL (6.4-8.2) Albumin 2.8 g/dL (3.4-5.0) Albumin/Globulin Ratio 0.9 (1.0-1.7) Thyroid Stimulating Hormone (TSH) 0.396 uIU/mL (0.358-3.74) Laboratory Tests Test 07/07/21 13:49 07/08/21 10:09 25-Hydroxy Vitamin D Total 6.8 ng/mL (30-100) Sodium Level 140 mmol/L (136-145) Potassium Level 4.4 mmol/L (3.5-5.1) Chloride Level 99 mmol/L (98-107) Carbon Dioxide Level 39 mmol/L (21-32) Anion Gap 2 (6-14) Blood Urea Nitrogen 17 mg/dL (8-26) Creatinine 0.7 mg/dL (0.7-1.3) Estimated GFR (Cockcroft-Gault) 115.0 BUN/Creatinine Ratio 24 (6-20) Glucose Level 97 mg/dL (70-99) Calcium Level 8.0 mg/dL (8.5-10.1) Magnesium Level 1.9 mg/dL (1.8-2.4) Total Bilirubin 0.3 mg/dL (0.2-1.0) Aspartate Amino Transf (AST/SGOT) 11 U/L (15-37) Alanine Aminotransferase (ALT/SGPT) 15 U/L (16-63) Alkaline Phosphatase 76 U/L (46-116) Total Protein 6.0 g/dL (6.4-8.2) Albumin 2.8 g/dL (3.4-5.0) Albumin/Globulin Ratio 0.9 (1.0-1.7) Thyroid Stimulating Hormone (TSH) 0.396 uIU/mL (0.358-3.74) Medications Current Medications Acetaminophen/ Hydrocodone Bitart (Lortab 10/325) 1 tab PRN Q6HRS PRN PO PAIN Last administered on 07/08/21at 09:37; Start 07/06/21 at 21:30 Ketorolac Tromethamine (Toradol 30mg Vial) 30 mg PRN Q6HRS PRN IVP INFLAMMATION Last administered on 07/07/21at 02:18; Start 07/06/21 at 21:30; Stop 07/11/21 at 21:29 Hydromorphone HCl (Dilaudid) 0.2 mg PRN Q2HRS PRN IVP PAIN Last administered on 07/07/21at 23:16; Start 07/06/21 at 21:30 Albuterol Sulfate (Ventolin Neb Soln) 2.5 mg PRN Q4HRS PRN NEB SHORTNESS OF BREATH Last administered on 07/08/21at 00:46; Start 07/06/21 at 21:45 Atorvastatin Calcium (Lipitor) 20 mg HS PO Last administered on 07/07/21at 20:08; Start 07/06/21 at 22:00 Albuterol/ Ipratropium (Duoneb) 3 ml RTQID NEB Last administered on 07/08/21at 11:13; Start 07/07/21 at 08:00 Primidone (Mysoline) 50 mg BID PO Last administered on 07/08/21at 09:37; Start 07/06/21 at 22:00 Roflumilast (Daliresp) 500 mcg DAILY PO Last administered on 07/08/21at 09:37; Start 07/07/21 at 09:00 Clonazepam (KlonoPIN) 1 mg TID PO Last administered on 07/08/21at 12:31; Start 07/06/21 at 22:00 Non-Formulary Medication (Omeprazole ) 1 cap DAILY PO ; Start 07/07/21 at 09 :00; Status UNV Quetiapine Fumarate (SEROquel XR) 300 mg QHS PO Last administered on 07/07/21at 20:08; Start 07/06/21 at 22:00 Acetaminophen (Tylenol) 650 mg PRN Q6HRS PRN PO MILD PAIN / TEMP > 100.3'F; Start 07/06/21 at 21:45 Lisinopril (Prinivil) 10 mg DAILY PO Last administered on 07/07/21at 08:24; Start 07/07/21 at 09:00 Apixaban (Eliquis) 5 mg BID PO Last administered on 07/07/21at 20:08; Start 07/06/21 at 22:00 Diltiazem HCl (Cardizem 24hr Cd) 120 mg DAILYBFRSUP PO Last administered on 07/07/21at 18:04; Start 07/07/21 at 17:00 Prednisone (Prednisone) 5 mg DAILY PO Last administered on 07/08/21at 09:37; Start 07/07/21 at 09:00 Pantoprazole Sodium (Protonix) 40 mg DAILYAC PO Last administered on 07/08/21at 09:36; Start 07/07/21 at 07:30 Influenza Virus Vaccine Quadrival (Flulaval Quad Syringe) 0.5 ml ONCE ONCE VAX IM Last administered on 07/07/21at 10:27; Start 07/07/21 at 09:00; Stop 07/07/21 at 09:01; Status DC Tizanidine HCl (Zanaflex) 4 mg Q8HRS PO Last administered on 07/08/21at 12:31; Start 07/07/21 at 15:00 Lidocaine (Lidoderm) 1 patch DAILY TD Last administered on 07/07/21at 15:50; Start 07/07/21 at 15:00 Miscellaneous (Lidoderm Patch Removal) 1 ea QHS MC Last administered on 07/07/21at 20:08; Start 07/07/21 at 21:00 Multi-Ingredient Mouthwash/Gargle (Gi Cocktail) 20 ml PRN QID PRN PO abdominal pain Last administered on 07/08/21at 09:36; Start 07/07/21 at 20:00 Metoprolol Tartrate (Lopressor Vial) 5 mg 1X ONCE IVP Last administered on 07/07/21at 20:09; Start 07/07/21 at 20:00; Stop 07/07/21 at 20:01; Status DC Albumin Human 100 ml @ 100 mls/hr 1X ONCE IV Last administered on 07/08/21at 04:15; Start 07/08/21 at 04:00; Stop 07/08/21 at 04:59; Status DC Hydromorphone HCl (Dilaudid) 0.4 mg 1X ONCE IVP Last administered on 07/08/21at 05:28; Start 07/08/21 at 04:00; Stop 07/08/21 at 04:01; Status DC Fentanyl Citrate (Fentanyl 2ml Vial) 25 mcg PRN Q5MIN PRN IVP MILD PAIN 1-3; Start 07/09/21 at 06:00; Stop 07/10/21 at 05:59 Fentanyl Citrate (Fentanyl 2ml Vial) 50 mcg PRN Q5MIN PRN IVP MODERATE PAIN 4- 6; Start 07/09/21 at 06:00; Stop 07/10/21 at 05:59 Morphine Sulfate (Morphine Sulfate) 1 mg PRN Q10MIN PRN IVP SEVERE PAIN 7-10; Start 07/09/21 at 06:00; Stop 07/10/21 at 05:59 Ringer's Solution 1,000 ml @ 30 mls/hr Q24H IV ; Start 07/09/21 at 06:00; Stop 07/09/21 at 17:59 Hydromorphone HCl (Dilaudid) 0.5 mg PRN Q10MIN PRN IVP SEVERE PAIN 7-10, 2nd CHOICE; Start 07/09/21 at 06:00; Stop 07/10/21 at 05:59 Prochlorperazine Edisylate (Compazine) 5 mg PACU PRN PRN IVP NAUSEA, MRX1; Start 07/09/21 at 06:00; Stop 07/10/21 at 05:59 Albuterol/ Ipratropium (Duoneb) 3 ml RTQID NEB ; Start 07/08/21 at 16:00 Active Scripts Active Oxycodone Hcl Immed.release (Oxycodone Hcl) 5 Mg Tablet 30 Mg PO PRN Q6HRS PRN 15 Days Dexamethasone 4 Mg Tablet 1 Tab PO DAILY 7 Days Klonopin (Clonazepam) 1 Mg Tablet 1 Mg PO TID 30 Days Reported Seroquel (Quetiapine Fumarate) 300 Mg Tablet 1 Tab PO QHS Mysoline (Primidone) 50 Mg Tablet 1 Tab PO BID 30 Days Duoneb 0.5-3(2.5) Mg/3 Ml (Albuterol/Ipratropium) 3 Ml Ampul.neb 3 Ml NEB QID Atorvastatin Calcium 20 Mg Tablet 1 Tab PO HS Omeprazole 40 Mg Capsule.dr 1 Cap PO DAILY Alendronate Sodium 70 Mg Tablet 70 Mg PO WEEKLY Daliresp (Roflumilast) 500 Mcg Tablet 500 Mcg PO DAILY Albuterol Sulfate Neb Soln (Albuterol Sulfate) 2.5 Mg/3 Ml Vial.neb 1 Vial NEB PRN Q4HRS Vitals/I & O Vital Sign - Last 24 Hours 07/07/21 07/07/21 07/07/21 07/07/21 15:00 15:18 18:04 19:20 Temp 97.6 98.8 97.6 98.8 Pulse 117 117 122 Resp 17 26 B/P (MAP) 124/81 (95) 124/81 122/77 (92) Pulse Ox 92 95 91 O2 Delivery Nasal Cannula Nasal Cannula Nasal Cannula O2 Flow Rate 3.5 3.0 3.5 07/07/21 07/07/21 07/07/21 07/07/21 19:50 19:58 20:09 21:02 Pulse 122 B/P (MAP) 122/77 Pulse Ox 93 O2 Delivery Nasal Cannula Nasal Cannula Nasal Cannula O2 Flow Rate 3.5 3.0 3.5 07/07/21 07/07/21 07/07/21 07/08/21 22:09 23:10 23:16 00:12 Temp 98.7 98.7 Pulse 107 Resp 24 B/P (MAP) 124/78 (93) Pulse Ox 91 O2 Delivery Nasal Cannula Nasal Cannula Nasal Cannula Nasal Cannula O2 Flow Rate 3.5 3.5 3.5 3.5 07/08/21 07/08/21 07/08/21 07/08/21 03:10 05:28 06:21 07:00 Temp 98.6 97.8 98.6 97.8 Pulse 100 98 Resp 24 24 B/P (MAP) 95/58 (70) 93/48 (63) Pulse Ox 92 90 O2 Delivery Nasal Cannula Nasal Cannula Nasal Cannula Nasal Cannula O2 Flow Rate 3.5 3.5 3.5 5.0 07/08/21 07/08/21 07/08/21 07/08/21 07:30 08:00 09:00 11:00 Temp 98.1 98.1 Pulse 98 111 Resp 24 B/P (MAP) 93/48 129/78 (95) Pulse Ox 89 90 O2 Delivery Nasal Cannula Nasal Cannula Nasal Cannula O2 Flow Rate 4.0 3.5 5.0 07/08/21 11:13 Pulse Ox 90 O2 Delivery Nasal Cannula O2 Flow Rate 5.0 Intake and Output 07/07/21 07/07/21 07/08/21 15:00 23:00 07:00 Intake Total 180 ml 240 ml Output Total 0 ml 215 ml 150 ml Balance 180 ml -215 ml 90 ml Justifications for Admission Other Justification YAMILEX RADFORD CAREER BASED INTERVENTION COORDINATOR Jul 08, 2021 13:45
--- NOTE | 2021-07-08 13:50 | PDOC ---
Provider Note Date of Service: DATE: 07/08/21 TIME: 13:46 Provider Note After reviewing the Lumbar MRI, I have concerns about proceeding with kyphoplasty with the moderate stenosis and retropulsion If he is not able to be up and ambulate with TLSO, surgery will need to be considered which would include an instrumented fusion kyphoplasty order cancelled will follow Justifications for Admission Other Justification LIZ GRIFFIN MD Jul 08, 2021 13:50
[2021-07-08 15:00] VITALS: BP 129/79
[2021-07-08] MEDS ORDERED: IPRATRPIUM/ALBUTEROL 0.5/2.5MG 3 ML NEBU. NEB SCH (16:00)
[2021-07-08 19:20] VITALS: BP 132/87
[2021-07-08] MEDS: PATCH REMOVAL. MC SCH (21:00)
[2021-07-08] MEDS: QUEtiapine 300 MG TAB.ER.24H. PO SCH (21:09)
[2021-07-08] MEDS: ATORVASTATIN CALCIUM 20 MG TABLET PO SCH (21:09)
[2021-07-08 23:47] VITALS: BP 130/76
[2021-07-09] MEDS: ALBUTEROL SULFATE 2.5 MG/3 ML NEBU. NEB PRN ×3 (01:04→23:28)
[2021-07-09 02:55] VITALS: BP 121/74
[2021-07-09] MEDS: tiZANidine 4 MG TABLET. PO SCH ×3 (05:05→20:55)
[2021-07-09] MEDS: KETOROLAC 30 MG/ML VIAL. IVP PRN ×3 (05:05→20:57)
[2021-07-09] MEDS ORDERED: fentaNYL PF VIAL 100 MCG/2 ML VIAL IVP PRN ×2 (06:00)
[2021-07-09] MEDS ORDERED: IV RINGERS,LACTATED 1000ML 1,000 ML IV SCH (06:00)
[2021-07-09] MEDS ORDERED: MORPHINE SULFATE 2 MG/ML INJ. IVP PRN (06:00)
[2021-07-09] MEDS ORDERED: PROCHLORPERAZINE 10 MG/2 ML VIAL. IVP PRN (06:00)
[2021-07-09] MEDS ORDERED: HYDROmorphone 2 MG/ML VIAL IVP PRN (06:00)
[2021-07-09 07:00] VITALS: BP 100/55
[2021-07-09] MEDS: IPRATRPIUM/ALBUTEROL 0.5/2.5MG 3 ML NEBU. NEB SCH ×5 (07:15→19:55)
[2021-07-09] MEDS: PANTOPRAZOLE 40 MG TABLET.DR. PO SCH (07:30)
[2021-07-09] MEDS: APIXABAN 5 MG TABLET. PO SCH ×2 (08:33→20:54)
[2021-07-09] MEDS: ROFLUMILAST 500 MCG TABLET. PO SCH (08:33)
[2021-07-09] MEDS: clonazePAM 0.5 MG TABLET PO SCH ×3 (08:33→20:54)
[2021-07-09] MEDS: LIDOCAINE (700MG/PATCH) PATCH. TD SCH (08:34)
[2021-07-09] MEDS: predniSONE 5 MG TABLET PO SCH (08:34)
[2021-07-09] MEDS: LISINOPRIL 10 MG TABLET PO SCH (08:34)
[2021-07-09] MEDS: PRIMIDONE 50 MG TABLET PO SCH ×2 (08:34→20:54)
--- NOTE | 2021-07-09 10:00 | PDOC ---
PROGRESS NOTES Date of Service DATE: 07/09/21 TIME: 09:56 Subjective Subjective He admits continued back pain. Objective Objective Vital Signs Date Time Temp Pulse Resp B/P (MAP) Pulse Ox O2 Delivery O2 Flow Rate FiO2 07/09/21 08:40 Nasal Cannula 4.0 07/09/21 08:34 107 100/55 07/09/21 07:15 96 07/09/21 07:00 97.9 18 97.9 Intake and Output 07/09/21 07:00 Intake Total 240 ml Output Total 1700 ml Balance -1460 ml Intake Oral 240 ml Output Urine Total 1700 ml Physical Exam Physical Exam He got up with corset on and walked at bedside with roller walker under supervision but requires assistance in donning and doffing corset and he c/o difficulty to breath with brace on firmly. Plan Plan of Care To see how he does with brace on in the next day or two and home with home health follow up or to SNF when medically stable. Comment Review of Relevant I have reviewed the following items ben (where applicable) has been applied. Labs Laboratory Tests Test 07/07/21 13:49 07/08/21 10:09 25-Hydroxy Vitamin D Total 6.8 ng/mL (30-100) Sodium Level 140 mmol/L (136-145) Potassium Level 4.4 mmol/L (3.5-5.1) Chloride Level 99 mmol/L (98-107) Carbon Dioxide Level 39 mmol/L (21-32) Anion Gap 2 (6-14) Blood Urea Nitrogen 17 mg/dL (8-26) Creatinine 0.7 mg/dL (0.7-1.3) Estimated GFR (Cockcroft-Gault) 115.0 BUN/Creatinine Ratio 24 (6-20) Glucose Level 97 mg/dL (70-99) Calcium Level 8.0 mg/dL (8.5-10.1) Magnesium Level 1.9 mg/dL (1.8-2.4) Total Bilirubin 0.3 mg/dL (0.2-1.0) Aspartate Amino Transf (AST/SGOT) 11 U/L (15-37) Alanine Aminotransferase (ALT/SGPT) 15 U/L (16-63) Alkaline Phosphatase 76 U/L (46-116) Total Protein 6.0 g/dL (6.4-8.2) Albumin 2.8 g/dL (3.4-5.0) Albumin/Globulin Ratio 0.9 (1.0-1.7) Thyroid Stimulating Hormone (TSH) 0.396 uIU/mL (0.358-3.74) Laboratory Tests Test 07/08/21 10:09 Sodium Level 140 mmol/L (136-145) Potassium Level 4.4 mmol/L (3.5-5.1) Chloride Level 99 mmol/L (98-107) Carbon Dioxide Level 39 mmol/L (21-32) Anion Gap 2 (6-14) Blood Urea Nitrogen 17 mg/dL (8-26) Creatinine 0.7 mg/dL (0.7-1.3) Estimated GFR (Cockcroft-Gault) 115.0 BUN/Creatinine Ratio 24 (6-20) Glucose Level 97 mg/dL (70-99) Calcium Level 8.0 mg/dL (8.5-10.1) Magnesium Level 1.9 mg/dL (1.8-2.4) Total Bilirubin 0.3 mg/dL (0.2-1.0) Aspartate Amino Transf (AST/SGOT) 11 U/L (15-37) Alanine Aminotransferase (ALT/SGPT) 15 U/L (16-63) Alkaline Phosphatase 76 U/L (46-116) Total Protein 6.0 g/dL (6.4-8.2) Albumin 2.8 g/dL (3.4-5.0) Albumin/Globulin Ratio 0.9 (1.0-1.7) Thyroid Stimulating Hormone (TSH) 0.396 uIU/mL (0.358-3.74) Medications Current Medications Acetaminophen/ Hydrocodone Bitart (Lortab 10/325) 1 tab PRN Q6HRS PRN PO PAIN Last administered on 07/08/21at 09:37; Start 07/06/21 at 21:30 Ketorolac Tromethamine (Toradol 30mg Vial) 30 mg PRN Q6HRS PRN IVP INFLAMMATION Last administered on 07/09/21at 05:05; Start 07/06/21 at 21:30; Stop 07/11/21 at 21:29 Hydromorphone HCl (Dilaudid) 0.2 mg PRN Q2HRS PRN IVP PAIN Last administered on 07/07/21at 23:16; Start 07/06/21 at 21:30 Albuterol Sulfate (Ventolin Neb Soln) 2.5 mg PRN Q4HRS PRN NEB SHORTNESS OF BREATH Last administered on 07/09/21at 05:05; Start 07/06/21 at 21:45 Atorvastatin Calcium (Lipitor) 20 mg HS PO Last administered on 07/08/21at 21:09; Start 07/06/21 at 22:00 Albuterol/ Ipratropium (Duoneb) 3 ml RTQID NEB Last administered on 07/09/21at 07:15; Start 07/07/21 at 08:00 Primidone (Mysoline) 50 mg BID PO Last administered on 07/08/21at 21:09; Start 07/06/21 at 22:00 Roflumilast (Daliresp) 500 mcg DAILY PO Last administered on 07/08/21at 09:37; Start 07/07/21 at 09:00 Clonazepam (KlonoPIN) 1 mg TID PO Last administered on 07/08/21at 21:09; Start 07/06/21 at 22:00 Non-Formulary Medication (Omeprazole ) 1 cap DAILY PO ; Start 07/07/21 at 09:00; Status UNV Quetiapine Fumarate (SEROquel XR) 300 mg QHS PO Last administered on 07/08/21at 21:09; Start 07/06/21 at 22:00 Acetaminophen (Tylenol) 650 mg PRN Q6HRS PRN PO MILD PAIN / TEMP > 100.3'F; Start 07/06/21 at 21:45 Lisinopril (Prinivil) 10 mg DAILY PO Last administered on 07/07/21at 08:24; Start 07/07/21 at 09:00 Apixaban (Eliquis) 5 mg BID PO Last administered on 07/07/21at 20:08; Start 07/06/21 at 22:00 Diltiazem HCl (Cardizem 24hr Cd) 120 mg DAILYBFRSUP PO Last administered on 07/07/21at 18:04; Start 07/07/21 at 17:00 Prednisone (Prednisone) 5 mg DAILY PO Last administered on 07/08/21at 09:37; Start 07/07/21 at 09:00 Pantoprazole Sodium (Protonix) 40 mg DAILYAC PO Last administered on 07/08/21at 09:36; Start 07/07/21 at 07:30 Influenza Virus Vaccine Quadrival (Flulaval Quad Syringe) 0.5 ml ONCE ONCE VAX IM Last administered on 07/07/21at 10:27; Start 07/07/21 at 09:00; Stop 07/07/21 at 09:01; Status DC Tizanidine HCl (Zanaflex) 4 mg Q8HRS PO Last administered on 07/09/21at 05:05; Start 07/07/21 at 15:00 Lidocaine (Lidoderm) 1 patch DAILY TD Last administered on 07/07/21at 15:50; Start 07/07/21 at 15:00 Miscellaneous (Lidoderm Patch Removal) 1 ea QHS MC Last administered on 07/07/21at 20:08; Start 07/07/21 at 21:00 Multi-Ingredient Mouthwash/Gargle (Gi Cocktail) 20 ml PRN QID PRN PO abdominal pain Last administered on 07/08/21at 20:00; Start 07/07/21 at 20:00 Metoprolol Tartrate (Lopressor Vial) 5 mg 1X ONCE IVP Last administered on 07/07/21at 20:09; Start 07/07/21 at 20:00; Stop 07/07/21 at 20:01; Status DC Albumin Human 100 ml @ 100 mls/hr 1X ONCE IV Last administered on 07/08/21at 04:15; Start 07/08/21 at 04:00; Stop 07/08/21 at 04:59; Status DC Hydromorphone HCl (Dilaudid) 0.4 mg 1X ONCE IVP Last administered on 07/08/21at 05:28; Start 07/08/21 at 04:00; Stop 07/08/21 at 04:01; Status DC Fentanyl Citrate (Fentanyl 2ml Vial) 25 mcg PRN Q5MIN PRN IVP MILD PAIN 1-3; Start 07/09/21 at 06:00; Stop 07/10/21 at 05:59 Fentanyl Citrate (Fentanyl 2ml Vial) 50 mcg PRN Q5MIN PRN IVP MODERATE PAIN 4- 6; Start 07/09/21 at 06:00; Stop 07/10/21 at 05:59 Morphine Sulfate (Morphine Sulfate) 1 mg PRN Q10MIN PRN IVP SEVERE PAIN 7-10; Start 07/09/21 at 06:00; Stop 07/10/21 at 05:59 Ringer's Solution 1,000 ml @ 30 mls/hr Q24H IV ; Start 07/09/21 at 06:00; Stop 07/09/21 at 17:59 Hydromorphone HCl (Dilaudid) 0.5 mg PRN Q10MIN PRN IVP SEVERE PAIN 7-10, 2nd CHOICE; Start 07/09/21 at 06:00; Stop 07/10/21 at 05:59 Prochlorperazine Edisylate (Compazine) 5 mg PACU PRN PRN IVP NAUSEA, MRX1; Start 07/09/21 at 06:00; Stop 07/10/21 at 05:59 Albuterol/ Ipratropium (Duoneb) 3 ml RTQID NEB ; Start 07/08/21 at 16:00; Status Cancel Active Scripts Active Oxycodone Hcl Immed.release (Oxycodone Hcl) 5 Mg Tablet 30 Mg PO PRN Q6HRS PRN 15 Days Dexamethasone 4 Mg Tablet 1 Tab PO DAILY 7 Days Klonopin (Clonazepam) 1 Mg Tablet 1 Mg PO TID 30 Days Reported Seroquel (Quetiapine Fumarate) 300 Mg Tablet 1 Tab PO QHS Mysoline (Primidone) 50 Mg Tablet 1 Tab PO BID 30 Days Duoneb 0.5-3(2.5) Mg/3 Ml (Albuterol/Ipratropium) 3 Ml Ampul.neb 3 Ml NEB QID Atorvastatin Calcium 20 Mg Tablet 1 Tab PO HS Omeprazole 40 Mg Capsule.dr 1 Cap PO DAILY Alendronate Sodium 70 Mg Tablet 70 Mg PO WEEKLY Daliresp (Roflumilast) 500 Mcg Tablet 500 Mcg PO DAILY Albuterol Sulfate Neb Soln (Albuterol Sulfate) 2.5 Mg/3 Ml Vial.neb 1 Vial NEB PRN Q4HRS Vitals/I & O Vital Sign - Last 24 Hours 07/08/21 07/08/21 07/08/21 07/08/21 11:00 11:13 15:00 16:23 Temp 98.1 97.8 98.1 97.8 Pulse 111 105 Resp 24 24 B/P (MAP) 129/78 (95) 129/79 (96) Pulse Ox 90 90 95 98 O2 Delivery Nasal Cannula Nasal Cannula Nasal Cannula Nasal Cannula O2 Flow Rate 5.0 5.0 5.0 5.0 07/08/21 07/08/21 07/08/21 07/08/21 19:20 19:30 20:24 23:47 Temp 98.6 98.3 98.6 98.3 Pulse 109 111 Resp 18 20 B/P (MAP) 132/87 (102) 130/76 (94) Pulse Ox 91 98 93 O2 Delivery Nasal Cannula Nasal Cannula Nasal Cannula Nasal Cannula O2 Flow Rate 5.0 5.0 5.0 5.0 07/09/21 07/09/21 07/09/21 07/09/21 02:55 07:00 07:15 08:34 Temp 98.2 97.9 98.2 97.9 Pulse 114 107 107 Resp 24 18 B/P (MAP) 121/74 (90) 100/55 (70) 100/55 Pulse Ox 93 96 96 O2 Delivery Nasal Cannula Nasal Cannula Nasal Cannula O2 Flow Rate 5.0 5.0 4.0 07/09/21 08:40 O2 Delivery Nasal Cannula O2 Flow Rate 4.0 Intake and Output 07/08/21 07/08/21 07/09/21 15:00 23:00 07:00 Intake Total 240 ml Output Total 400 ml 1300 ml Balance -400 ml -1060 ml Justifications for Admission Other Justification JORGE OWEN MD Jul 09, 2021 10:00
[2021-07-09] MEDS: SENNOSIDES/DOCUSATE 8.6/50MG TABLET. PO SCH ×2 (10:15→20:54)
[2021-07-09] MEDS ORDERED: MAGNESIUM HYDROXIDE 2,400 MG/30 ML ORAL.SUSP. PO PRN (10:15)
[2021-07-09] MEDS ORDERED: SODIUM PHOSPHATES 19/7GM 133 ML ENEMA. PR PRN (10:15)
[2021-07-09 11:00] VITALS: BP 148/92
[2021-07-09 15:00] VITALS: BP 130/84
[2021-07-09 19:15] VITALS: BP 152/95
[2021-07-09] MEDS: ATORVASTATIN CALCIUM 20 MG TABLET PO SCH (20:54)
[2021-07-09] MEDS: QUEtiapine 300 MG TAB.ER.24H. PO SCH (20:54)
[2021-07-09] MEDS: PATCH REMOVAL. MC SCH (21:00)
[2021-07-09 23:06] VITALS: BP 79/41
[2021-07-10] MEDS: ALBUTEROL SULFATE 2.5 MG/3 ML NEBU. NEB PRN ×2 (05:28→13:29)
[2021-07-10] MEDS: tiZANidine 4 MG TABLET. PO SCH ×3 (05:49→22:34)
[2021-07-10 07:00] VITALS: BP 114/84
[2021-07-10] MEDS: IPRATRPIUM/ALBUTEROL 0.5/2.5MG 3 ML NEBU. NEB SCH ×4 (07:36→20:08)
[2021-07-10] MEDS: clonazePAM 0.5 MG TABLET PO SCH ×3 (08:17→22:33)
[2021-07-10] MEDS: PANTOPRAZOLE 40 MG TABLET.DR. PO SCH (08:18)
[2021-07-10] MEDS: APIXABAN 5 MG TABLET. PO SCH ×2 (08:18→22:33)
[2021-07-10] MEDS: LISINOPRIL 10 MG TABLET PO SCH (08:18)
[2021-07-10] MEDS: ROFLUMILAST 500 MCG TABLET. PO SCH (08:19)
[2021-07-10] MEDS: SENNOSIDES/DOCUSATE 8.6/50MG TABLET. PO SCH ×2 (08:19→21:00)
[2021-07-10] MEDS: PRIMIDONE 50 MG TABLET PO SCH ×2 (08:19→22:34)
[2021-07-10] MEDS: predniSONE 5 MG TABLET PO SCH (08:19)
[2021-07-10] MEDS: LIDOCAINE (700MG/PATCH) PATCH. TD SCH (08:19)
--- NOTE | 2021-07-10 09:14 | PDOC ---
PROGRESS NOTES Date of Service DATE: 07/10/21 TIME: 09:10 Subjective Subjective No new complaints. He admits difficulty to breath with brace on firmly. Objective Objective Vital Signs Date Time Temp Pulse Resp B/P (MAP) Pulse Ox O2 Delivery O2 Flow Rate FiO2 07/10/21 08:18 111 114/84 07/10/21 07:38 94 Nasal Cannula 3.5 07/10/21 07:00 97.2 20 97.2 Intake and Output 07/10/21 07:00 Output Total 150 ml Balance -150 ml Output Urine Total 150 ml Physical Exam Physical Exam He is resting in bed with oxygen by nasal canula and he got up and walked with TLSO and roller walker with physical therapy and voiding since Velazco catheter was discontinued. he is constipated. Plan Plan of Care To get him up as tolerated and to work on his constipation and to SNF when medically stable. Comment Review of Relevant I have reviewed the following items ben (where applicable) has been applied. Labs Laboratory Tests Test 07/08/21 10:09 07/09/21 07:45 Sodium Level 140 mmol/L (136-145) Potassium Level 4.4 mmol/L (3.5-5.1) Chloride Level 99 mmol/L (98-107) Carbon Dioxide Level 39 mmol/L (21-32) Anion Gap 2 (6-14) Blood Urea Nitrogen 17 mg/dL (8-26) Creatinine 0.7 mg/dL (0.7-1.3) Estimated GFR (Cockcroft-Gault) 115.0 BUN/Creatinine Ratio 24 (6-20) Glucose Level 97 mg/dL (70-99) Calcium Level 8.0 mg/dL (8.5-10.1) Magnesium Level 1.9 mg/dL (1.8-2.4) Total Bilirubin 0.3 mg/dL (0.2-1.0) Aspartate Amino Transf (AST/SGOT) 11 U/L (15-37) Alanine Aminotransferase (ALT/SGPT) 15 U/L (16-63) Alkaline Phosphatase 76 U/L (46-116) Total Protein 6.0 g/dL (6.4-8.2) Albumin 2.8 g/dL (3.4-5.0) Albumin/Globulin Ratio 0.9 (1.0-1.7) Thyroid Stimulating Hormone (TSH) 0.396 uIU/mL (0.358-3.74) Cortisol AM Sample 6.3 ug/dL (4.3-22.4) Medications Current Medications Acetaminophen/ Hydrocodone Bitart (Lortab 10/325) 1 tab PRN Q6HRS PRN PO PAIN Last administered on 07/08/21at 09:37; Start 07/06/21 at 21:30 Ketorolac Tromethamine (Toradol 30mg Vial) 30 mg PRN Q6HRS PRN IVP INFLAMMATION Last administered on 07/09/21at 20:57; Start 07/06/21 at 21:30; Stop 07/11/21 at 21:29 Hydromorphone HCl (Dilaudid) 0.2 mg PRN Q2HRS PRN IVP PAIN Last administered on 07/07/21at 23:16; Start 07/06/21 at 21:30 Albuterol Sulfate (Ventolin Neb Soln) 2.5 mg PRN Q4HRS PRN NEB SHORTNESS OF BREATH Last administered on 07/10/21at 05:28; Start 07/06/21 at 21:45 Atorvastatin Calcium (Lipitor) 20 mg HS PO Last administered on 07/09/21at 20:54; Start 07/06/21 at 22:00 Albuterol/ Ipratropium (Duoneb) 3 ml RTQID NEB Last administered on 07/10/21at 07:36; Start 07/07/21 at 08:00 Primidone (Mysoline) 50 mg BID PO Last administered on 07/10/21at 08:19; Start 07/06/21 at 22:00 Roflumilast (Daliresp) 500 mcg DAILY PO Last administered on 07/10/21at 08:19; Start 07/07/21 at 09:00 Clonazepam (KlonoPIN) 1 mg TID PO Last administered on 07/10/21at 08:17; Start 07/06/21 at 22:00 Non-Formulary Medication (Omeprazole ) 1 cap DAILY PO ; Start 07/07/21 at 09:00; Status UNV Quetiapine Fumarate (SEROquel XR) 300 mg QHS PO Last administered on 07/09/21at 20:54; Start 07/06/21 at 22:00 Acetaminophen (Tylenol) 650 mg PRN Q6HRS PRN PO MILD PAIN / TEMP > 100.3'F; Start 07/06/21 at 21:45 Lisinopril (Prinivil) 10 mg DAILY PO Last administered on 07/10/21at 08:18; Start 07/07/21 at 09:00 Apixaban (Eliquis) 5 mg BID PO Last administered on 07/10/21at 08:18; Start 07/06/21 at 22:00 Diltiazem HCl (Cardizem 24hr Cd) 120 mg DAILYBFRSUP PO Last administered on 07/07/21at 18:04; Start 07/07/21 at 17:00 Prednisone (Prednisone) 5 mg DAILY PO Last administered on 07/10/21at 08:19; Start 07/07/21 at 09:00 Pantoprazole Sodium (Protonix) 40 mg DAILYAC PO Last administered on 07/10/21at 08:18; Start 07/07/21 at 07:30 Influenza Virus Vaccine Quadrival (Flulaval Quad [id number] Syringe) 0.5 ml ONCE ONCE VAX IM Last administered on 07/07/21at 10:27; Start 07/07/21 at 09:00; Stop 07/07/21 at 09:01; Status DC Tizanidine HCl (Zanaflex) 4 mg Q8HRS PO Last administered on 07/10/21at 05:49; Start 07/07/21 at 15:00 Lidocaine (Lidoderm) 1 patch DAILY TD Last administered on 07/07/21at 15:50; Start 07/07/21 at 15:00 Miscellaneous (Lidoderm Patch Removal) 1 ea QHS MC Last administered on 07/09/21at 21:00; Start 07/07/21 at 21:00 Multi-Ingredient Mouthwash/Gargle (Gi Cocktail) 20 ml PRN QID PRN PO abdominal pain Last administered on 07/08/21at 20:00; Start 07/07/21 at 20:00 Metoprolol Tartrate (Lopressor Vial) 5 mg 1X ONCE IVP Last administered on 07/07/21at 20:09; Start 07/07/21 at 20:00; Stop 07/07/21 at 20:01; Status DC Albumin Human 100 ml @ 100 mls/hr 1X ONCE IV Last administered on 07/08/21at 04:15; Start 07/08/21 at 04:00; Stop 07/08/21 at 04:59; Status DC Hydromorphone HCl (Dilaudid) 0.4 mg 1X ONCE IVP Last administered on 07/08/21at 05:28; Start 07/08/21 at 04:00; Stop 07/08/21 at 04:01; Status DC Fentanyl Citrate (Fentanyl 2ml Vial) 25 mcg PRN Q5MIN PRN IVP MILD PAIN 1-3; Start 07/09/21 at 06:00; Stop 07/10/21 at 05:59; Status DC Fentanyl Citrate (Fentanyl 2ml Vial) 50 mcg PRN Q5MIN PRN IVP MODERATE PAIN 4- 6; Start 07/09/21 at 06:00; Stop 07/10/21 at 05:59; Status DC Morphine Sulfate (Morphine Sulfate) 1 mg PRN Q10MIN PRN IVP SEVERE PAIN 7-10; Start 07/09/21 at 06:00; Stop 07/10/21 at 05:59; Status DC Ringer's Solution 1,000 ml @ 30 mls/hr Q24H IV ; Start 07/09/21 at 06:00; Stop 07/09/21 at 17:59; Status DC Hydromorphone HCl (Dilaudid) 0.5 mg PRN Q10MIN PRN IVP SEVERE PAIN 7-10, 2nd CHOICE; Start 07/09/21 at 06:00; Stop 07/10/21 at 05:59; Status DC Prochlorperazine Edisylate (Compazine) 5 mg PACU PRN PRN IVP NAUSEA, MRX1; Start 07/09/21 at 06:00; Stop 07/10/21 at 05:59; Status DC Albuterol/ Ipratropium (Duoneb) 3 ml RTQID NEB ; Start 07/08/21 at 16:00; Status Cancel Magnesium Hydroxide (Milk Of Magnesia) 2,400 mg PRN DAILY PRN PO CONSTIPATION; Start 07/09/21 at 10:15 Senna/Docusate Sodium (Senna Plus) 1 tab BID PO Last administered on 07/10/21at 08:19; Start 07/09/21 at 10:15 Sodium Monofluorophosphate (Fleet Adult) 133 ml PRN DAILY PRN [place] CONSTIPATION; Start 07/09/21 at 10:15 Active Scripts Active Oxycodone Hcl Immed.release (Oxycodone Hcl) 5 Mg Tablet 30 Mg PO PRN Q6HRS PRN 15 Days Dexamethasone 4 Mg Tablet 1 Tab PO DAILY 7 Days Klonopin (Clonazepam) 1 Mg Tablet 1 Mg PO TID 30 Days Reported Seroquel (Quetiapine Fumarate) 300 Mg Tablet 1 Tab PO QHS Mysoline (Primidone) 50 Mg Tablet 1 Tab PO BID 30 Days Duoneb 0.5-3(2.5) Mg/3 Ml (Albuterol/Ipratropium) 3 Ml Ampul.neb 3 Ml NEB QID Atorvastatin Calcium 20 Mg Tablet 1 Tab PO HS Omeprazole 40 Mg Capsule.dr 1 Cap PO DAILY Alendronate Sodium 70 Mg Tablet 70 Mg PO WEEKLY Daliresp (Roflumilast) 500 Mcg Tablet 500 Mcg PO DAILY Albuterol Sulfate Neb Soln (Albuterol Sulfate) 2.5 Mg/3 Ml Vial.neb 1 Vial NEB PRN Q4HRS Vitals/I & O Vital Sign - Last 24 Hours 07/09/21 07/09/21 07/09/21 07/09/21 10:49 11:00 13:43 15:00 Temp 98.0 98.7 98.0 98.7 Pulse 124 118 Resp 22 16 B/P (MAP) 148/92 (110) 130/84 (99) Pulse Ox 96 88 93 91 O2 Delivery Nasal Cannula Nasal Cannula Nasal Cannula Nasal Cannula O2 Flow Rate 6.0 5.0 6.0 5.0 07/09/21 07/09/21 07/09/21 07/09/21 16:27 17:00 19:15 19:55 Temp 98.5 98.5 Pulse 118 119 Resp 24 B/P (MAP) 130/84 152/95 (114) Pulse Ox 92 91 O2 Delivery Nasal Cannula Nasal Cannula Nasal Cannula O2 Flow Rate 4.0 5.0 3.5 07/09/21 07/09/21 07/09/21 07/10/21 20:00 23:06 23:29 05:29 Temp 98.6 98.6 Pulse 110 Resp 20 B/P (MAP) 79/41 (54) Pulse Ox 93 94 92 O2 Delivery Nasal Cannula Nasal Cannula Nasal Cannula Nasal Cannula O2 Flow Rate 3.5 5.0 3.5 3.5 07/10/21 07/10/21 07/10/21 07:00 07:38 08:18 Temp 97.2 97.2 Pulse 111 111 Resp 20 B/P (MAP) 114/84 (94) 114/84 Pulse Ox 91 94 O2 Delivery Nasal Cannula Nasal Cannula O2 Flow Rate 5.0 3.5 Intake and Output 07/09/21 07/09/21 07/10/21 15:00 23:00 07:00 Output Total 150 ml Balance -150 ml Justifications for Admission Other Justification JORGE OWEN MD Jul 10, 2021 09:14
[2021-07-10 11:00] VITALS: BP 164/95
[2021-07-10] MEDS: HYDROmorphone 2 MG/ML VIAL IVP PRN ×2 (13:24→21:03)
--- NOTE | 2021-07-10 14:16 | PDOC ---
[employer] PROGRESS NOTE Date of Service DOS: DATE: 07/10/21 TIME: 14:14 Chief Complaint Chief Complaint Assessment/Plan Acute L1 compression fracture with mild retropulsion History of COPD home O2 of 3 L nasal cannula History of hypertension History of CAD History of asthma Pulmonology consult for management of his COPD. Attempt ambulation with TLSO brace if patient has pain then he will proceed with IR for kyphoplasty Neurosurgery consultappreciate recommendations. For now no surgical intervention. Pain specialist consult with Dr helms. IV n.p.o. pain control Pending vitamin D level PT OT evaluation [facility] Cardiac diet CODE STATUS full Discussed with RN and SW Disposition inpatient management as above DPOA: Undesignated History of Present Illness History of Present Illness 61-year-old male with past medical history of COPD, hypertension who presents from [facility] ED after a fall experiencing back pain after that fall. Back pain is 7 out of 10 normally for his chronic back pain but after this incident the pain is 10 out of 10. Patient states that he was at a hotel room adjusting the heater on top of his bed and then he slipped and fell. Patient states he landed on the lower side of his back. Denies any syncope or loss of consciousness or dizziness. Patient is on 3 L home O2 for his COPD. Patient did have Covid pneumonia 1 month ago. Denies fevers, chest pain, abdominal pain, diarrhea, bladder or bowel incontinence or numbness to his lower extremities. 07/08/2021 No acute events overnight. Patient seen and examined bedside complaining of some shortness of breath. Increasing requirements of O2 to 5 L nasal cannula. Will initiate breathing treatments as needed. Will obtain a cortisol level in the a.m. Patient states that he was taking prednisone 50 mg for his COPD. Patient's chart, labs, images were reviewed and discussed with RN 07/10/2021 No acute events overnight. Patient seen by Dr. Capellan and neurosurgery. Recommended for patient to try to ambulate with TLSO brace. Unfortunately patient was too much pain and also the TLSO is constricting his breathing. Patient requiring breathing treatments. Vitals/I&O Vitals/I&O: Vital Signs Date Time Temp Pulse Resp B/P (MAP) Pulse Ox O2 Delivery O2 Flow Rate FiO2 07/10/21 13:29 87 Nasal Cannula 3.5 07/10/21 11:00 97.7 122 20 164/95 (118) 97.7 I & O 07/09/21 07/09/21 07/10/21 15:00 23:00 07:00 Output Total 150 ml Balance -150 ml Physical Exam General: Oriented X3, Cooperative Heart: Regular rate Lungs: Crackles Abdomen: Normal bowel sounds Extremities: No clubbing Skin: No rashes Comment Review of Relevant I have reviewed the following items ben (where applicable) has been applied. Justifications for Admission Other Justification SIMONA JACK MD Jul 10, 2021 14:16
[2021-07-10 15:00] VITALS: BP 110/60
--- NOTE | 2021-07-10 15:26 | RAD ---
XR CHEST 1V History: Reason: SOB, COPD hx / Spl. Instructions: / History: Comparison: June 10, 2021 Findings: No consolidation or pleural effusion. Normal heart size. No pneumothorax. Impression: 1. No acute cardiopulmonary process. Electronically signed by: Dann Godfrey DO (07/10/2021 3:23 PM) [id number]
[2021-07-10] MEDS ORDERED: MORPHINE SULFATE 2 MG/ML INJ. IVP ONE (18:00)
[2021-07-10 19:35] VITALS: BP 181/98
[2021-07-10] MEDS: LORazepam 0.5 MG TABLET PO PRN (19:37)
[2021-07-10] MEDS: PATCH REMOVAL. MC SCH (21:00)
--- NOTE | 2021-07-10 22:28 | PDOC ---
PROGRESS NOTES Date of Service DATE: 07/10/21 TIME: 22:24 Subjective Subjective patient seen and examined at 1640 c/o back pain and SOA reports ambulating but complains that the brace makes him more SOA Objective Objective Vital Signs Date Time Temp Pulse Resp B/P (MAP) Pulse Ox O2 Delivery O2 Flow Rate FiO2 07/10/21 22:10 20 92 Nasal Cannula 3.5 07/10/21 19:35 98.7 75 181/98 (125) 98.7 Intake and Output 07/10/21 07:00 Output Total 150 ml Balance -150 ml Output Urine Total 150 ml Physical Exam General: Alert, Oriented X3, Cooperative Neuro: Other (neuro intact, LE strength and sensation intact) Plan Plan of Care Single Needle Operator contacted to make possible adjustments to brace Encouraged activity as tolerated may need pulmonary to evaluate SOA D/W RN Comment Review of Relevant I have reviewed the following items ben (where applicable) has been applied. Labs Laboratory Tests Test 07/09/21 07:45 Cortisol AM Sample 6.3 ug/dL (4.3-22.4) Medications Current Medications Acetaminophen/ Hydrocodone Bitart (Lortab 10) 1 tab PRN Q6HRS PRN PO MODERATE - SEVERE PAIN Last administered on 07/08/21at 09:37; Start 07/06/21 at 21:30 Ketorolac Tromethamine (Toradol 30mg Vial) 30 mg PRN Q6HRS PRN IVP INFLAMMATION Last administered on 07/09/21at 20:57; Start 07/06/21 at 21:30; Stop 07/11/21 at 21:29 Hydromorphone HCl (Dilaudid) 0.2 mg PRN Q2HRS PRN IVP PAIN Last administered on 07/10/21at 21:03; Start 07/06/21 at 21:30 Albuterol Sulfate (Ventolin Neb Soln) 2.5 mg PRN Q4HRS PRN NEB SHORTNESS OF BREATH Last administered on 07/10/21at 13:29; Start 07/06/21 at 21:45 Atorvastatin Calcium (Lipitor) 20 mg HS PO Last administered on 07/09/21at 20:54; Start 07/06/21 at 22:00 Albuterol/ Ipratropium (Duoneb) 3 ml RTQID NEB Last administered on 07/10/21at 20:08; Start 07/07/21 at 08:00 Primidone (Mysoline) 50 mg BID PO Last administered on 07/10/21 08:19; Start 07/06/21 at 22:00 Roflumilast (Daliresp) 500 mcg DAILY PO Last administered on 07/10/21at 08:19; Start 07/07/21 at 09:00 Clonazepam (KlonoPIN) 1 mg TID PO Last administered on 07/10/21at 13:23; Start 07/06/21 at 22:00 Non-Formulary Medication (Omeprazole ) 1 cap DAILY PO ; Start 07/07/21 at 09:00; Status UNV Quetiapine Fumarate (SEROquel XR) 300 mg QHS PO Last administered on 07/09/21at 20:54; Start 07/06/21 at 22:00 Acetaminophen (Tylenol) 650 mg PRN Q6HRS PRN PO MILD PAIN / TEMP > 100.3'F; Start 07/06/21 at 21:45 Lisinopril (Prinivil) 10 mg DAILY PO Last administered on 07/10/21at 08:18; Start 07/07/21 at 09:00 Apixaban (Eliquis) 5 mg BID PO Last administered on 07/10/21 08:18; Start 07/06/21 at 22:00 Diltiazem HCl (Cardizem 24hr Cd) 120 mg DAILYBFRSUP PO Last administered on 07/10/21at 16:43; Start 07/07/21 at 17:00 Prednisone (Prednisone) 5 mg DAILY PO Last administered on 07/10/21at 08:19; Start 07/07/21 at 09:00 Pantoprazole Sodium (Protonix) 40 mg DAILYAC PO Last administered on 07/10/21at 08:18; Start 07/07/21 at 07:30 Influenza Virus Vaccine Quadrival (Flulaval Quad [id number] Syringe) 0.5 ml ONCE ONCE VAX IM Last administered on 07/07/21at 10:27; Start 07/07/21 at 09:00; Stop 07/07/21 at 09:01; Status DC Tizanidine HCl (Zanaflex) 4 mg Q8HRS PO Last administered on 10/22/21at 13:23; Start 07/07/21 at 15:00 Lidocaine (Lidoderm) 1 patch DAILY TD Last administered on 07/07/21at 15:50; Start 07/07/21 at 15:00 Miscellaneous (Lidoderm Patch Removal) 1 ea QHS MC Last administered on 07/09/21at 21:00; Start 07/07/21 at 21:00 Multi-Ingredient Mouthwash/Gargle (Gi Cocktail) 20 ml PRN QID PRN PO abdominal pain Last administered on 07/08/21at 20:00; Start 07/07/21 at 20:00 Metoprolol Tartrate (Lopressor Vial) 5 mg 1X ONCE IVP Last administered on 07/07/21at 20:09; Start 07/07/21 at 20:00; Stop 07/07/21 at 20:01; Status DC Albumin Human 100 ml @ 100 mls/hr 1X ONCE IV Last administered on 07/08/21at 04:15; Start 07/08/21 at 04:00; Stop 07/08/21 at 04:59; Status DC Hydromorphone HCl (Dilaudid) 0.4 mg 1X ONCE IVP Last administered on 07/08/21at 05:28; Start 07/08/21 at 04:00; Stop 07/08/21 at 04:01; Status DC Fentanyl Citrate (Fentanyl 2ml Vial) 25 mcg PRN Q5MIN PRN IVP MILD PAIN 1-3; Start 07/09/21 at 06:00; Stop 07/10/21 at 05:59; Status DC Fentanyl Citrate (Fentanyl 2ml Vial) 50 mcg PRN Q5MIN PRN IVP MODERATE PAIN 4- 6; Start 07/09/21 at 06:00; Stop 07/10/21 at 05:59; Status DC Morphine Sulfate (Morphine Sulfate) 1 mg PRN Q10MIN PRN IVP SEVERE PAIN 7-10; Start 07/09/21 at 06:00; Stop 07/10/21 at 05:59; Status DC Ringer's Solution 1,000 ml @ 30 mls/hr Q24H IV ; Start 07/09/21 at 06:00; Stop 07/09/21 at 17:59; Status DC Hydromorphone HCl (Dilaudid) 0.5 mg PRN Q10MIN PRN IVP SEVERE PAIN 7-10, 2nd CHOICE; Start 07/09/21 at 06:00; Stop 07/10/21 at 05:59; Status DC Prochlorperazine Edisylate (Compazine) 5 mg PACU PRN PRN IVP NAUSEA, MRX1; Start 07/09/21 at 06:00; Stop 07/10/21 at 05:59; Status DC Albuterol/ Ipratropium (Duoneb) 3 ml RTQID NEB ; Start 07/08/21 at 16:00; Status Cancel Magnesium Hydroxide (Milk Of Magnesia) 2,400 mg PRN DAILY PRN PO CONSTIPATION; Start 07/09/21 at 10:15 Senna/Docusate Sodium (Senna Plus) 1 tab BID PO Last administered on 07/10/21at 08:19; Start 07/09/21 at 10:15 Sodium Monofluorophosphate (Fleet Adult) 133 ml PRN DAILY PRN [place] CONSTIPATION; Start 07/09/21 at 10:15 Lorazepam (Ativan) 0.25 mg PRN Q6HRS PRN PO ANXIETY / AGITATION Last administered on 07/10/21at 19:37; Start 07/10/21 at 13:15 Morphine Sulfate (Morphine Sulfate) 2 mg 1X ONCE IVP Last administered on 07/10/21at 17:46; Start 07/10/21 at 18:00; Stop 07/10/21 at 18:01; Status DC Active Scripts Active Oxycodone Hcl Immed.release (Oxycodone Hcl) 5 Mg Tablet 30 Mg PO PRN Q6HRS PRN 15 Days Dexamethasone 4 Mg Tablet 1 Tab PO DAILY 7 Days Klonopin (Clonazepam) 1 Mg Tablet 1 Mg PO TID 30 Days Reported Seroquel (Quetiapine Fumarate) 300 Mg Tablet 1 Tab PO QHS Mysoline (Primidone) 50 Mg Tablet 1 Tab PO BID 30 Days Duoneb 0.5-3(2.5) Mg/3 Ml (Albuterol/Ipratropium) 3 Ml Ampul.neb 3 Ml NEB QID Atorvastatin Calcium 20 Mg Tablet 1 Tab PO HS Omeprazole 40 Mg Capsule.dr 1 Cap PO DAILY Alendronate Sodium 70 Mg Tablet 70 Mg PO WEEKLY Daliresp (Roflumilast) 500 Mcg Tablet 500 Mcg PO DAILY Albuterol Sulfate Neb Soln (Albuterol Sulfate) 2.5 Mg/3 Ml Vial.neb 1 Vial NEB PRN Q4HRS Vitals/I & O Vital Sign - Last 24 Hours 07/09/21 07/09/21 07/10/21 07/10/21 23:06 23:29 05:29 07:00 Temp 98.6 98.6 Pulse 110 Resp 20 B/P (MAP) 79/41 (54) Pulse Ox 93 94 92 O2 Delivery Nasal Cannula Nasal Cannula Nasal Cannula Nasal Cannula O2 Flow Rate 5.0 3.5 3.5 3.5 07/10/21 07/10/21 07/10/21 07/10/21 07:00 07:38 08:18 10:45 Temp 97.2 97.2 Pulse 111 111 Resp 20 B/P (MAP) 114/84 (94) 114/84 Pulse Ox 91 94 92 O2 Delivery Nasal Cannula Nasal Cannula Nasal Cannula O2 Flow Rate 5.0 3.5 3.5 07/10/21 07/10/21 07/10/21 07/10/21 11:00 13:24 13:29 15:00 Temp 97.7 97.4 97.7 97.4 Pulse 122 119 Resp 20 20 B/P (MAP) 164/95 (118) 110/60 (77) Pulse Ox 91 87 94 O2 Delivery Nasal Cannula Room Air Nasal Cannula Nasal Cannula O2 Flow Rate 5.0 3.5 5.0 07/10/21 07/10/21 07/10/21 07/10/21 15:01 15:08 16:43 17:46 Pulse 119 B/P (MAP) 110/60 Pulse Ox 94 O2 Delivery Nasal Cannula Nasal Cannula Nasal Cannula O2 Flow Rate 3.5 3.5 07/10/21 07/10/21 07/10/21 07/10/21 19:35 20:00 20:10 21:03 Temp 98.7 98.7 Pulse 75 Resp 24 22 B/P (MAP) 181/98 (125) Pulse Ox 92 97 92 O2 Delivery Nasal Cannula Nasal Cannula Nasal Cannula Room Air O2 Flow Rate 3.5 3.5 3.5 3.5 07/10/21 22:10 Resp 20 Pulse Ox 92 O2 Delivery Nasal Cannula O2 Flow Rate 3.5 Intake and Output 07/09/21 07/09/21 07/10/21 15:00 23:00 07:00 Output Total 150 ml Balance -150 ml Justifications for Admission Other Justification YAMILEX RADFORD COLLAR FUSER Jul 10, 2021 22:28
[2021-07-10] MEDS: ATORVASTATIN CALCIUM 20 MG TABLET PO SCH (22:34)
[2021-07-10] MEDS: QUEtiapine 300 MG TAB.ER.24H. PO SCH (22:34)
[2021-07-10] MEDS: KETOROLAC 30 MG/ML VIAL. IVP PRN (22:44)
[2021-07-10 23:30] VITALS: BP 164/105
[2021-07-11] MEDS: tiZANidine 4 MG TABLET. PO SCH ×3 (06:20→23:08)
[2021-07-11] MEDS: PANTOPRAZOLE 40 MG TABLET.DR. PO SCH (06:20)
[2021-07-11] MEDS: LORazepam 0.5 MG TABLET PO PRN (06:29)
[2021-07-11 07:00] VITALS: BP 100/66
[2021-07-11] MEDS: IPRATRPIUM/ALBUTEROL 0.5/2.5MG 3 ML NEBU. NEB SCH ×3 (07:15→20:09)
[2021-07-11] MEDS: ROFLUMILAST 500 MCG TABLET. PO SCH (08:50)
[2021-07-11] MEDS: clonazePAM 0.5 MG TABLET PO SCH ×3 (08:50→20:55)
[2021-07-11] MEDS: PRIMIDONE 50 MG TABLET PO SCH ×2 (08:50→20:55)
[2021-07-11] MEDS: SENNOSIDES/DOCUSATE 8.6/50MG TABLET. PO SCH ×2 (08:50→20:55)
[2021-07-11] MEDS: APIXABAN 5 MG TABLET. PO SCH ×2 (08:50→20:55)
[2021-07-11] MEDS: predniSONE 5 MG TABLET PO SCH (08:51)
[2021-07-11] MEDS: LISINOPRIL 10 MG TABLET PO SCH (08:51)
[2021-07-11] MEDS: LIDOCAINE (700MG/PATCH) PATCH. TD SCH (08:53)
[2021-07-11] MEDS: KETOROLAC 30 MG/ML VIAL. IVP PRN (09:04)
[2021-07-11] MEDS: HYDROmorphone 2 MG/ML VIAL IVP PRN (09:05)
--- NOTE | 2021-07-11 09:48 | PDOC ---
PROGRESS NOTES Date of Service DATE: 07/11/21 TIME: 09:41 Subjective Subjective He admits brace is going up while standing up. Objective Objective Vital Signs Date Time Temp Pulse Resp B/P (MAP) Pulse Ox O2 Delivery O2 Flow Rate FiO2 07/11/21 09:05 Nasal Cannula 3.5 07/11/21 08:51 114 100/66 07/11/21 07:15 95 07/11/21 07:00 97.6 18 97.6 Physical Exam Physical Exam He is supine in bed,alert and comfortable and using oxygen by nasal canula and he has been getting up with brace and walking with roller walker for short distances. When he had brace firmly to support his back he admits increased difficulty with SOB. He had a bowel movement yesterday and he is still asking and getting parenteral narcotics for pain control. Plan Plan of Care I have explained him about having to have brace don firmly low down in his back before he gets up and have it adjusted by being in bed supine in bed,if he had brace don while up sitting. Comment Review of Relevant I have reviewed the following items ben (where applicable) has been applied. Medications Current Medications Acetaminophen/ Hydrocodone Bitart (Lortab 10325) 1 tab PRN Q6HRS PRN PO MODERATE - SEVERE PAIN Last administered on 07/08/21at 09:37; Start 07/06/21 at 21:30 Ketorolac Tromethamine (Toradol 30mg Vial) 30 mg PRN Q6HRS PRN IVP INFLAMMATION Last administered on 07/11/21at 09:04; Start 07/06/21 at 21:30; Stop 07/11/21 at 21:29 Hydromorphone HCl (Dilaudid) 0.2 mg PRN Q2HRS PRN IVP PAIN Last administered on 07/11/21at 09:05; Start 07/06/21 at 21:30 Albuterol Sulfate (Ventolin Neb Soln) 2.5 mg PRN Q4HRS PRN NEB SHORTNESS OF BREATH Last administered on 07/10/21at 13:29; Start 07/06/21 at 21:45 Atorvastatin Calcium (Lipitor) 20 mg HS PO Last administered on 07/10/21at 22:34; Start 07/06/21 at 22:00 Albuterol/ Ipratropium (Duoneb) 3 ml RTQID NEB Last administered on 07/11/21 07:15; Start 07/07/21 at 08:00 Primidone (Mysoline) 50 mg BID PO Last administered on 07/11/21 08:50; Start 07/06/21 at 22:00 Roflumilast (Daliresp) 500 mcg DAILY PO Last administered on 07/11/21at 08:50; Start 07/07/21 at 09:00 Clonazepam (KlonoPIN) 1 mg TID PO Last administered on 07/11/21at 08:50; Start 07/06/21 at 22:00 Non-Formulary Medication (Omeprazole ) 1 cap DAILY PO ; Start 07/07/21 at 09:00; Status UNV Quetiapine Fumarate (SEROquel XR) 300 mg QHS PO Last administered on 07/10/21at 22:34; Start 07/06/21 at 22:00 Acetaminophen (Tylenol) 650 mg PRN Q6HRS PRN PO MILD PAIN / TEMP > 100.3'F; Start 07/06/21 at 21:45 Lisinopril (Prinivil) 10 mg DAILY PO Last administered on 07/11/21at 08:51; Start 07/07/21 at 09:00 Apixaban (Eliquis) 5 mg BID PO Last administered on 07/11/21 08:50; Start 07/06/21 at 22:00 Diltiazem HCl (Cardizem 24hr Cd) 120 mg DAILYBFRSUP PO Last administered on 07/10/21at 16:43; Start 07/07/21 at 17:00 Prednisone (Prednisone) 5 mg DAILY PO Last administered on 07/11/21at 08:51; Start 07/07/21 at 09:00 Pantoprazole Sodium (Protonix) 40 mg DAILYAC PO Last administered on 07/11/21at 06:20; Start 07/07/21 at 07:30 Influenza Virus Vaccine Quadrival (Flulaval Quad [id number] Syringe) 0.5 ml ONCE ONCE VAX IM Last administered on 07/07/21at 10:27; Start 07/07/21 at 09:00; Stop 07/07/21 at 09:01; Status DC Tizanidine HCl (Zanaflex) 4 mg Q8HRS PO Last administered on 07/11/21at 06:20; Start 07/07/21 at 15:00 Lidocaine (Lidoderm) 1 patch DAILY TD Last administered on 07/07/21at 15:50; Start 07/07/21 at 15:00 Miscellaneous (Lidoderm Patch Removal) 1 ea QHS MC Last administered on 07/09/21at 21:00; Start 07/07/21 at 21:00 Multi-Ingredient Mouthwash/Gargle (Gi Cocktail) 20 ml PRN QID PRN PO abdominal pain Last administered on 07/08/21at 20:00; Start 07/07/21 at 20:00 Metoprolol Tartrate (Lopressor Vial) 5 mg 1X ONCE IVP Last administered on 07/07/21at 20:09; Start 07/07/21 at 20:00; Stop 07/07/21 at 20:01; Status DC Albumin Human 100 ml @ 100 mls/hr 1X ONCE IV Last administered on 07/08/21at 04:15; Start 07/08/21 at 04:00; Stop 07/08/21 at 04:59; Status DC Hydromorphone HCl (Dilaudid) 0.4 mg 1X ONCE IVP Last administered on 07/08/21at 05:28; Start 07/08/21 at 04:00; Stop 07/08/21 at 04:01; Status DC Fentanyl Citrate (Fentanyl 2ml Vial) 25 mcg PRN Q5MIN PRN IVP MILD PAIN 1-3; Start 07/09/21 at 06:00; Stop 07/10/21 at 05:59; Status DC Fentanyl Citrate (Fentanyl 2ml Vial) 50 mcg PRN Q5MIN PRN IVP MODERATE PAIN 4- 6; Start 07/09/21 at 06:00; Stop 07/10/21 at 05:59; Status DC Morphine Sulfate (Morphine Sulfate) 1 mg PRN Q10MIN PRN IVP SEVERE PAIN 7-10; Start 07/09/21 at 06:00; Stop 07/10/21 at 05:59; Status DC Ringer's Solution 1,000 ml @ 30 mls/hr Q24H IV ; Start 07/09/21 at 06:00; Stop 07/09/21 at 17:59; Status DC Hydromorphone HCl (Dilaudid) 0.5 mg PRN Q10MIN PRN IVP SEVERE PAIN 7-10, 2nd CHOICE; Start 07/09/21 at 06:00; Stop 07/10/21 at 05:59; Status DC Prochlorperazine Edisylate (Compazine) 5 mg PACU PRN PRN IVP NAUSEA, MRX1; Start 07/09/21 at 06:00; Stop 07/10/21 at 05:59; Status DC Albuterol/ Ipratropium (Duoneb) 3 ml RTQID NEB ; Start 07/08/21 at 16:00; S tatus Cancel Magnesium Hydroxide (Milk Of Magnesia) 2,400 mg PRN DAILY PRN PO CONSTIPATION; Start 07/09/21 at 10:15 Senna/Docusate Sodium (Senna Plus) 1 tab BID PO Last administered on 07/11/21at 08:50; Start 07/09/21 at 10:15 Sodium Monofluorophosphate (Fleet Adult) 133 ml PRN DAILY PRN OK CONSTIPATION; Start 07/09/21 at 10:15 Lorazepam (Ativan) 0.25 mg PRN Q6HRS PRN PO ANXIETY / AGITATION Last administered on 07/11/21at 06:29; Start 07/10/21 at 13:15 Morphine Sulfate (Morphine Sulfate) 2 mg 1X ONCE IVP Last administered on 07/10/21at 17:46; Start 07/10/21 at 18:00; Stop 07/10/21 at 18:01; Status DC Active Scripts Active Oxycodone Hcl Immed.release (Oxycodone Hcl) 5 Mg Tablet 30 Mg PO PRN Q6HRS PRN 15 Days Dexamethasone 4 Mg Tablet 1 Tab PO DAILY 7 Days Klonopin (Clonazepam) 1 Mg Tablet 1 Mg PO TID 30 Days Reported Seroquel (Quetiapine Fumarate) 300 Mg Tablet 1 Tab PO QHS Mysoline (Primidone) 50 Mg Tablet 1 Tab PO BID 30 Days Duoneb 0.5-3(2.5) Mg/3 Ml (Albuterol/Ipratropium) 3 Ml Ampul.neb 3 Ml NEB QID Atorvastatin Calcium 20 Mg Tablet 1 Tab PO HS Omeprazole 40 Mg Capsule.dr 1 Cap PO DAILY Alendronate Sodium 70 Mg Tablet 70 Mg PO WEEKLY Daliresp (Roflumilast) 500 Mcg Tablet 500 Mcg PO DAILY Albuterol Sulfate Neb Soln (Albuterol Sulfate) 2.5 Mg/3 Ml Vial.neb 1 Vial NEB PRN Q4HRS Vitals/I & O Vital Sign - Last 24 Hours 07/10/21 07/10/21 07/10/21 07/10/21 10:45 11:00 13:24 13:29 Temp 97.7 97.7 Pulse 122 Resp 20 B/P (MAP) 164/95 (118) Pulse Ox 92 91 87 O2 Delivery Nasal Cannula Nasal Cannula Room Air Nasal Cannula O2 Flow Rate 3.5 5.0 3.5 07/10/21 07/10/21 07/10/21 07/10/21 15:00 15:01 15:08 16:43 Temp 97.4 97.4 Pulse 119 119 Resp 20 B/P (MAP) 110/60 (77) 110/60 Pulse Ox 94 94 O2 Delivery Nasal Cannula Nasal Cannula Nasal Cannula O2 Flow Rate 5.0 3.5 07/10/21 07/10/21 07/10/21 07/10/21 17:46 19:35 20:00 20:10 Temp 98.7 98.7 Pulse 75 Resp 24 B/P (MAP) 181/98 (125) Pulse Ox 92 97 O2 Delivery Nasal Cannula Nasal Cannula Nasal Cannula Nasal Cannula O2 Flow Rate 3.5 3.5 3.5 3.5 07/10/21 07/10/21 07/10/21 07/11/21 21:03 22:10 23:30 07:00 Temp 98.5 97.6 98.5 97.6 Pulse 112 114 Resp 22 20 20 18 B/P (MAP) 164/105 (124) 100/66 (77) Pulse Ox 92 92 92 94 O2 Delivery Room Air Nasal Cannula Nasal Cannula Nasal Cannula O2 Flow Rate 3.5 3.5 3.5 3.5 07/11/21 07/11/21 07/11/21 07:15 08:51 09:05 Pulse 114 B/P (MAP) 100/66 Pulse Ox 95 O2 Delivery Nasal Cannula Nasal Cannula O2 Flow Rate 3.5 3.5 Justifications for Admission Other Justification JORGE OWEN MD Jul 11, 2021 09:48
[2021-07-11 11:00] VITALS: BP 105/62
[2021-07-11] MEDS: METHOCARBAMOL 500 MG TABLET PO PRN (11:53)
[2021-07-11] MEDS: oxyCODONE/APAP 10/325 1 TAB TABLET PO PRN ×2 (11:53→21:12)
--- NOTE | 2021-07-11 12:41 | PDOC ---
[employer] PROGRESS NOTE Date of Service DOS: DATE: 07/11/21 TIME: 12:33 Chief Complaint Chief Complaint Assessment/Plan Acute L1 compression fracture with mild retropulsion History of COPD home O2 of 3 L nasal cannula History of hypertension History of CAD History of asthma Pulmonology consult for management of his COPD. Attempt ambulation with TLSO brace if patient has pain then he will proceed with IR for kyphoplasty Neurosurgery consultappreciate recommendations. For now no surgical intervention. Pain specialist consult with Dr helms. IV n.p.o. pain control Pending vitamin D level PT OT evaluation when cleared by neurosurgery [facility] for DVT prophylaxis Cardiac diet CODE STATUS full Discussed with RN and SW Disposition inpatient management as above DPOA: Undesignated History of Present Illness History of Present Illness 61-year-old male with past medical history of COPD, hypertension who presents from [facility] ED after a fall experiencing back pain after that fall. Back pain is 7 out of 10 normally for his chronic back pain but after this incident the pain is 10 out of 10. Patient states that he was at a hotel room adjusting the heater on top of his bed and then he slipped and fell. Patient states he landed on the lower side of his back. Denies any syncope or loss of consciousness or dizziness. Patient is on 3 L home O2 for his COPD. Patient did have Covid pneumonia 1 month ago. Denies fevers, chest pain, abdominal pain, diarrhea, bladder or bowel incontinence or numbness to his lower extremities. 07/08/2021 No acute events overnight. Patient seen and examined bedside complaining of some shortness of breath. Increasing requirements of O2 to 5 L nasal cannula. Will initiate breathing treatments as needed. Will obtain a cortisol level in the a.m. Patient states that he was taking prednisone 50 mg for his COPD. Patient's chart, labs, images were reviewed and discussed with RN 07/10/2021 No acute events overnight. Patient seen by Dr. Capellan and neurosurgery. Recommended for patient to try to ambulate with TLSO brace. Unfortunately patient was too much pain and also the TLSO is constricting his breathing. Patient requiring breathing treatments. 07/11/21 No acute events overnight. Pt continue to complain of pain during ambulation. Pending pulmonary evaluation. Still attempting to adjust brace so it does not affect his breathing. Patient's chart, labs, images were reviewed and discussed with RN Vitals/I&O Vitals/I&O: Vital Signs Date Time Temp Pulse Resp B/P (MAP) Pulse Ox O2 Delivery O2 Flow Rate FiO2 07/11/21 11:53 92 Nasal Cannula 3.5 07/11/21 11:00 98.1 112 17 105/62 (76) 98.1 Physical Exam General: Alert, Oriented X3, Cooperative Heart: Regular rate Lungs: Crackles Abdomen: Normal bowel sounds Extremities: No clubbing Skin: No rashes Comment Review of Relevant I have reviewed the following items ben (where applicable) has been applied. Medications: Current Medications Medications (Trade) Dose Ordered Sig/Dayne Route PRN Reason Start Time Stop Time Status Last Admin Dose Admin Lorazepam (Ativan) 0.25 mg PRN Q6HRS PRN PO ANXIETY / AGITATION 07/10/21 13:15 07/11/21 06:29 Morphine Sulfate (Morphine Sulfate) 2 mg 1X ONCE IVP 07/10/21 18:00 07/10/21 18:01 DC 07/10/21 17:46 Oxycodone/ Acetaminophen (Percocet 10/325) 1 tab PRN Q4HRS PRN PO MODERATE PAIN 4-6 07/11/21 10:15 07/11/21 11:53 Methocarbamol (Robaxin) 500 mg TID PRN PO MUSCLE SPASMS 07/11/21 10:15 07/11/21 11:53 Justifications for Admission Other Justification SIMONA JACK MD Jul 11, 2021 12:41
[2021-07-11 15:00] VITALS: BP 106/58
[2021-07-11] MEDS: ALBUTEROL SULFATE 2.5 MG/3 ML NEBU. NEB PRN (16:12)
[2021-07-11] MEDS: CHOLECALCIFEROL (VITAMIN D3) 1,000 UNIT TABLET PO SCH (16:57)
--- NOTE | 2021-07-11 18:42 | PDOC ---
PULMONARY PROGRESS NOTES DATE: 07/11/21 TIME: 18:41 Vitals Vital Signs Date Time Temp Pulse Resp B/P (MAP) Pulse Ox O2 Delivery O2 Flow Rate FiO2 07/11/21 16:58 107 106/58 07/11/21 16:12 95 Nasal Cannula 3.5 07/11/21 15:00 97.9 17 97.9 Lungs: Crackles Cardiovascular: S1, S2 Abdomen: Soft, Non-tender Extremities: Other Medications Active Scripts Medications Dose Route/Sig Max Daily Dose Days Date Category Oxycodone Hcl Immed.release (Oxycodone Hcl) 5 Mg Tablet 30 Mg PO PRN Q6HRS PRN 15 06/15/21 Rx Dexamethasone 4 Mg Tablet 1 Tab PO DAILY 7 06/12/21 Rx Klonopin (Clonazepam) 1 Mg Tablet 1 Mg PO TID 30 06/12/21 Rx Seroquel (Quetiapine Fumarate) 300 Mg Tablet 1 Tab PO QHS 02/13/21 Reported Mysoline (Primidone) 50 Mg Tablet 1 Tab PO BID 30 02/13/21 Reported Duoneb 0.5-3(2.5) Mg/3 Ml (Albuterol/Ipratropium) 3 Ml Ampul.neb 3 Ml NEB QID 02/13/21 Reported Atorvastatin Calcium 20 Mg Tablet 1 Tab PO HS 02/13/21 Reported Omeprazole 40 Mg Capsule. 1 Cap PO DAILY 02/13/21 Reported Alendronate Sodium 70 Mg Tablet 70 Mg PO WEEKLY 02/13/21 Reported Daliresp (Roflumilast) 500 Mcg Tablet 500 Mcg PO DAILY 03/01/19 Reported Albuterol Sulfate Neb Soln (Albuterol Sulfate) 2.5 Mg/3 Ml Vial.neb 1 Vial NEB PRN Q4HRS 03/01/19 Reported Impression . Chronic respiratory failure COPD Hypoventilation secondary to lower back pain CLAUDIA DE JESUS MD Jul 11, 2021 18:42
[2021-07-11 19:00] VITALS: BP 139/80
[2021-07-11] MEDS: QUEtiapine 300 MG TAB.ER.24H. PO SCH (20:54)
[2021-07-11] MEDS: ATORVASTATIN CALCIUM 20 MG TABLET PO SCH (20:55)
[2021-07-11] MEDS: PATCH REMOVAL. MC SCH (20:55)
[2021-07-11 23:00] VITALS: BP 137/77
[2021-07-12] MEDS: HYDROmorphone 2 MG/ML VIAL IVP PRN ×4 (00:18→22:47)
[2021-07-12] MEDS: ALBUTEROL SULFATE 2.5 MG/3 ML NEBU. NEB PRN (02:30)
[2021-07-12] MEDS: oxyCODONE/APAP 10/325 1 TAB TABLET PO PRN ×4 (03:24→21:28)
[2021-07-12] MEDS: PANTOPRAZOLE 40 MG TABLET.DR. PO SCH (06:10)
[2021-07-12] MEDS: tiZANidine 4 MG TABLET. PO SCH ×3 (06:10→21:27)
[2021-07-12 07:00] VITALS: BP 100/66
[2021-07-12] MEDS: IPRATRPIUM/ALBUTEROL 0.5/2.5MG 3 ML NEBU. NEB SCH ×5 (07:11→20:43)
[2021-07-12] MEDS: SENNOSIDES/DOCUSATE 8.6/50MG TABLET. PO SCH ×2 (07:16→21:27)
[2021-07-12] MEDS: LIDOCAINE (700MG/PATCH) PATCH. TD SCH (07:16)
[2021-07-12] MEDS: CHOLECALCIFEROL (VITAMIN D3) 1,000 UNIT TABLET PO SCH (08:14)
[2021-07-12] MEDS: LISINOPRIL 10 MG TABLET PO SCH (08:15)
[2021-07-12] MEDS: METHOCARBAMOL 500 MG TABLET PO PRN ×2 (08:15→22:47)
[2021-07-12] MEDS: LORazepam 0.5 MG TABLET PO PRN ×3 (08:15→21:27)
[2021-07-12] MEDS: PRIMIDONE 50 MG TABLET PO SCH ×2 (08:15→21:28)
[2021-07-12] MEDS: clonazePAM 0.5 MG TABLET PO SCH ×3 (08:15→21:28)
[2021-07-12] MEDS: predniSONE 5 MG TABLET PO SCH (08:15)
[2021-07-12] MEDS: ROFLUMILAST 500 MCG TABLET. PO SCH (08:15)
[2021-07-12] MEDS: APIXABAN 5 MG TABLET. PO SCH ×2 (08:15→21:28)
[2021-07-12 11:00] VITALS: BP 112/65
--- NOTE | 2021-07-12 13:27 | PDOC ---
[employer] PROGRESS NOTE Date of Service DOS: DATE: 07/12/21 TIME: 13:26 Chief Complaint Chief Complaint Assessment/Plan Acute L1 compression fracture with mild retropulsion History of COPD home O2 of 3 L nasal cannula History of hypertension History of CAD History of asthma Pulmonology consult for management of his COPD. Attempt ambulation with TLSO brace if patient has pain then he will proceed with IR for kyphoplasty Neurosurgery consultappreciate recommendations. For now no surgical intervention. Pain specialist consult with Dr helms. IV n.p.o. pain control Pending vitamin D level PT OT evaluation [facility] Cardiac diet CODE STATUS full Discussed with RN and SW Disposition inpatient management as above DPOA: Undesignated History of Present Illness History of Present Illness 61-year-old male with past medical history of COPD, hypertension who presents from [facility] ED after a fall experiencing back pain after that fall. Back pain is 7 out of 10 normally for his chronic back pain but after this incident the pain is 10 out of 10. Patient states that he was at a hotel room adjusting the heater on top of his bed and then he slipped and fell. Patient states he landed on the lower side of his back. Denies any syncope or loss of consciousness or dizziness. Patient is on 3 L home O2 for his COPD. Patient did have Covid pneumonia 1 month ago. Denies fevers, chest pain, abdominal pain, diarrhea, bladder or bowel incontinence or numbness to his lower extremities. 07/08/2021 No acute events overnight. Patient seen and examined bedside complaining of some shortness of breath. Increasing requirements of O2 to 5 L nasal cannula. Will initiate breathing treatments as needed. Will obtain a cortisol level in the a.m. Patient states that he was taking prednisone 50 mg for his COPD. Patient's chart, labs, images were reviewed and discussed with RN 07/10/2021 No acute events overnight. Patient seen by Dr. Capellan and neurosurgery. Recommended for patient to try to ambulate with TLSO brace. Unfortunately patient was too much pain and also the TLSO is constricting his breathing. Patient requiring breathing treatments. 07/11/21 No acute events overnight. Pt continue to complain of pain during ambulation. Pending pulmonary evaluation. Still attempting to adjust brace so it does not affect his breathing. Patient's chart, labs, images were reviewed and discussed with RN 07/12/2021 No acute events overnight. No desats overnight. Patient requiring 3.5 L nasal cannula and saturating 95%. Patient continues to complain of pain with movement. Trouble breathing with TLSO brace. Will attempt to adjust the brace for comfort. No pending recommendations from pulmonology. Plan for discharge in the next 24 hours once brace is fitted so that patient is comfortable enough to go home.. Patient's chart, labs, images were reviewed and discussed with RN Vitals/I&O Vitals/I&O: Vital Signs Date Time Temp Pulse Resp B/P (MAP) Pulse Ox O2 Delivery O2 Flow Rate FiO2 07/12/21 11:19 95 Nasal Cannula 3.5 07/12/21 11:00 98.3 111 18 112/65 (81) 98.3 Physical Exam General: Alert, Oriented X3, Cooperative Heart: Regular rate Lungs: Crackles Abdomen: Normal bowel sounds Extremities: No clubbing Skin: No rashes Comment Review of Relevant I have reviewed the following items ben (where applicable) has been applied. Medications: Current Medications Medications (Trade) Dose Ordered Sig/Dayne Route PRN Reason Start Time Stop Time Status Last Admin Dose Admin Vitamin D (Vitamin D3) 1,000 unit DAILY PO 07/11/21 14:00 07/12/21 08:14 Justifications for Admission Other Justification SIMONA JACK MD Jul 12, 2021 13:27
[2021-07-12 15:00] VITALS: BP 138/87
[2021-07-12 19:00] VITALS: BP 163/102
--- NOTE | 2021-07-12 19:24 | CONS ---
DATE OF CONSULTATION: 07/12/2021 ATTENDING PHYSICIAN: Nikolay Burrell MD DICTATING PHYSICIAN: Patti Miller MD REASON FOR CONSULTATION: The patient is seen in pulmonary consultation at the request of Dr. Burrell for hypoxemia, COPD, chronic respiratory failure. HISTORY OF PRESENT ILLNESS: The patient is a 61-year-old that normally is on 3.5 liters of nasal cannula, quit approximately 5-6 years ago. He has a cough, mostly nonproductive. He has been wheezing. The patient presented with back pain. He has chronic back pain. He has been seen in consult by Dr. Hammond. He has been wearing a supporting vest. He does have a L1 vertebral body compression fracture with associated degenerative disk disease. He had a lumbar corset placed. He is having some difficulty with hypoxemia during the placement of the lumbar corset. The patient denies fever, chills, night sweats. PAST MEDICAL HISTORY: Chronic respiratory failure related to COPD, normally wears 3.5 liters at home, utilizes DuoNeb and Combivent at home. He has had previous history of hypertension. He had COVID-19 1 month ago, chronic back pain. PAST SURGICAL HISTORY: Status post tonsillectomy. ALLERGIES: LACTULOSE. FAMILY HISTORY: Noncontributory. SOCIAL HISTORY: He quit tobacco approximately 5-6 years ago. CURRENT MEDICATIONS: List was reviewed. He is receiving nebulized treatments. MAR was reviewed. He is currently receiving Eliquis. He is receiving DuoNebs. He is also on Daliresp. PHYSICAL EXAMINATION: VITAL SIGNS: Stable. O2 saturation was greater than 92%. NECK: Jugular venous distention was not elevated. No lymphadenopathy. CHEST: Full expansion. LUNGS: Poor airflow, no wheezes. CARDIOVASCULAR: Regular rate and rhythm with S1, S2, no S3. ABDOMEN: Soft. EXTREMITIES: No clubbing, cyanosis or edema. LABORATORY DATA: Reviewed. White count was normal. Electrolytes were noted. BUN and creatinine were normal. Chest x-ray was reviewed. There was no acute cardiopulmonary process. IMPRESSION: 1. Chronic respiratory failure. 2. Chronic obstructive pulmonary disease. 3. Periods of hypoxemia related to recent application of lumbar corset. 4. Acute L1 vertebral body fracture. 5. Lumbar spondylosis prominent at L4-L5. PLAN: 1. Continue oxygen supplementation. 2. DuoNeb. 3. No need for antibiotics and steroids. 4. We will follow as needed. I do appreciate the privilege in sharing in the patient's care. BEAU/ALEC/MYKEL DR: Raghav TID: [id number]
[2021-07-12] MEDS: PATCH REMOVAL. MC SCH (21:00)
[2021-07-12] MEDS: QUEtiapine 300 MG TAB.ER.24H. PO SCH (21:28)
[2021-07-12] MEDS: ATORVASTATIN CALCIUM 20 MG TABLET PO SCH (21:28)
[2021-07-12 22:55] VITALS: BP 149/91
[2021-07-13 03:00] VITALS: BP 124/67
[2021-07-13] MEDS: oxyCODONE/APAP 10/325 1 TAB TABLET PO PRN ×5 (03:49→21:33)
[2021-07-13] MEDS: LORazepam 0.5 MG TABLET PO PRN ×3 (03:49→21:33)
[2021-07-13 07:00] VITALS: BP 114/77
[2021-07-13] MEDS: SENNOSIDES/DOCUSATE 8.6/50MG TABLET. PO SCH ×2 (07:41→21:30)
[2021-07-13] MEDS: LIDOCAINE (700MG/PATCH) PATCH. TD SCH (07:42)
[2021-07-13] MEDS: IPRATRPIUM/ALBUTEROL 0.5/2.5MG 3 ML NEBU. NEB SCH ×4 (07:47→20:40)
[2021-07-13] MEDS: tiZANidine 4 MG TABLET. PO SCH ×3 (08:36→22:15)
[2021-07-13] MEDS: clonazePAM 0.5 MG TABLET PO SCH ×3 (08:37→22:16)
[2021-07-13] MEDS: ROFLUMILAST 500 MCG TABLET. PO SCH (08:37)
[2021-07-13] MEDS: predniSONE 5 MG TABLET PO SCH (08:37)
[2021-07-13] MEDS: APIXABAN 5 MG TABLET. PO SCH ×2 (08:37→21:31)
[2021-07-13] MEDS: CHOLECALCIFEROL (VITAMIN D3) 1,000 UNIT TABLET PO SCH (08:37)
[2021-07-13] MEDS: PRIMIDONE 50 MG TABLET PO SCH ×2 (08:37→21:31)
[2021-07-13] MEDS: PANTOPRAZOLE 40 MG TABLET.DR. PO SCH (08:37)
[2021-07-13] MEDS: METHOCARBAMOL 500 MG TABLET PO PRN ×2 (08:37→16:51)
[2021-07-13] MEDS: LISINOPRIL 10 MG TABLET PO SCH (08:37)
[2021-07-13] MEDS: HYDROmorphone 2 MG/ML VIAL IVP PRN (08:38)
--- NOTE | 2021-07-13 08:38 | PDOC ---
PULMONARY PROGRESS NOTES DATE: 07/13/21 TIME: 08:37 Subjective Patient not more short of air, currently on his baseline oxygen supplementation Vitals Vital Signs Date Time Temp Pulse Resp B/P (MAP) Pulse Ox O2 Delivery O2 Flow Rate FiO2 07/13/21 07:47 92 Nasal Cannula 3.5 07/13/21 07:00 97.8 114 34 114/77 (89) 97.8 ROS: No Nausea, No Chest Pain, No Abdominal Pain, No Increase Cough General: Alert Lungs: Clear Cardiovascular: S1, S2 Abdomen: Soft, Non-tender Neuro Exam: Alert Extremities: No Edema, Other Medications Active Scripts Medications Dose Route/Sig Max Daily Dose Days Date Category Oxycodone Hcl Immed.release (Oxycodone Hcl) 5 Mg Tablet 30 Mg PO PRN Q6HRS PRN 15 06/15/21 Rx Dexamethasone 4 Mg Tablet 1 Tab PO DAILY 7 06/12/21 Rx Klonopin (Clonazepam) 1 Mg Tablet 1 Mg PO TID 30 06/12/21 Rx Seroquel (Quetiapine Fumarate) 300 Mg Tablet 1 Tab PO QHS 02/13/21 Reported Mysoline (Primidone) 50 Mg Tablet 1 Tab PO BID 30 02/13/21 Reported Duoneb 0.5-3(2.5) Mg/3 Ml (Albuterol/Ipratropium) 3 Ml Ampul.neb 3 Ml NEB QID 02/13/21 Reported Atorvastatin Calcium 20 Mg Tablet 1 Tab PO HS 02/13/21 Reported Omeprazole 40 Mg Capsule.dr 1 Cap PO DAILY 02/13/21 Reported Alendronate Sodium 70 Mg Tablet 70 Mg PO WEEKLY 02/13/21 Reported Daliresp (Roflumilast) 500 Mcg Tablet 500 Mcg PO DAILY 03/01/19 Reported Albuterol Sulfate Neb Soln (Albuterol Sulfate) 2.5 Mg/3 Ml Vial.neb 1 Vial NEB PRN Q4HRS 03/01/19 Reported Impression . IMPRESSION: 1. Chronic respiratory failure. 2. Chronic obstructive pulmonary disease. 3. Periods of hypoxemia related to recent application of lumbar corset. 4. Acute L1 vertebral body fracture. 5. Lumbar spondylosis prominent at L4-L5. Plan . Updated 07/13 Continue current support No need for antibiotics and steroids Incentive spirometry Okay to transfer or discharge home PLAN: 1. Continue oxygen supplementation. 2. DuoNeb. 3. No need for antibiotics and steroids. 4. We will follow as needed. I do appreciate the privilege in sharing in the patient's care. CLAUDIA DE JESUS MD Jul 13, 2021 08:38
[2021-07-13 11:00] VITALS: BP 94/61
--- NOTE | 2021-07-13 13:55 | PDOC ---
[employer] PROGRESS NOTE Date of Service DOS: DATE: 07/13/21 TIME: 13:53 Chief Complaint Chief Complaint Assessment/Plan Acute L1 compression fracture with mild retropulsion History of COPD home O2 of 3 L nasal cannula History of hypertension History of CAD History of asthma Pulmonology consult for management of his COPD. Attempt ambulation with TLSO brace if patient has pain then he will proceed with IR for kyphoplasty Neurosurgery consultappreciate recommendations. For now no surgical intervention. Pain specialist consult with Dr helms. IV n.p.o. pain control Pending vitamin D level PT OT evaluation when [facility] Cardiac diet CODE STATUS full Discussed with RN and SW Disposition inpatient management as above DPOA: Undesignated History of Present Illness History of Present Illness 61-year-old male with past medical history of COPD, hypertension who presents from [facility] ED after a fall experiencing back pain after that fall. Back pain is 7 out of 10 normally for his chronic back pain but after this incident the pain is 10 out of 10. Patient states that he was at a hotel room adjusting the heater on top of his bed and then he slipped and fell. Patient states he landed on the lower side of his back. Denies any syncope or loss of consciousness or dizziness. Patient is on 3 L home O2 for his COPD. Patient did have Covid pneumonia 1 month ago. Denies fevers, chest pain, abdominal pain, diarrhea, bladder or bowel incontinence or numbness to his lower extremities. 07/08/2021 No acute events overnight. Patient seen and examined bedside complaining of some shortness of breath. Increasing requirements of O2 to 5 L nasal cannula. Will initiate breathing treatments as needed. Will obtain a cortisol level in the a.m. Patient states that he was taking prednisone 50 mg for his COPD. Patient's chart, labs, images were reviewed and discussed with RN 07/10/2021 No acute events overnight. Patient seen by Dr. Capellan and neurosurgery. Recommended for patient to try to ambulate with TLSO brace. Unfortunately patient was too much pain and also the TLSO is constricting his breathing. Patient requiring breathing treatments. 07/11/21 No acute events overnight. Pt continue to complain of pain during ambulation. Pending pulmonary evaluation. Still attempting to adjust brace so it does not affect his breathing. Patient's chart, labs, images were reviewed and discussed with RN 07/12/2021 No acute events overnight. No desats overnight. Patient requiring 3.5 L nasal cannula and saturating 95%. Patient continues to complain of pain with movement. Trouble breathing with TLSO brace. Will attempt to adjust the brace for comfort. No pending recommendations from pulmonology. Plan for discharge in the next 24 hours once brace is fitted so that patient is comfortable enough to go home.. Patient's chart, labs, images were reviewed and discussed with RN. 07/13: No acute events overnight. Still complains of lower back pain with movement. He also reports some bilateral thigh neuropathic pain. Will provide gabapentin. Per pulmonology, will continue duo nebs and oxygen as needed. surgical services coordinator following to help with possible rehab placement. Vitals/I&O Vitals/I&O: Vital Signs Date Time Temp Pulse Resp B/P (MAP) Pulse Ox O2 Delivery O2 Flow Rate FiO2 07/13/21 13:05 93 Nasal Cannula 3.5 07/13/21 11:00 97.9 111 34 94/61 (72) 97.9 Physical Exam General: Alert, Oriented X3, Cooperative Heart: Regular rate Lungs: Crackles Abdomen: Normal bowel sounds Extremities: No clubbing Skin: No rashes Comment Review of Relevant I have reviewed the following items ben (where applicable) has been applied. Justifications for Admission Other Justification LISSETTE TOUSSAINT MD Jul 13, 2021 13:55
[2021-07-13 15:00] VITALS: BP 124/62
--- NOTE | 2021-07-13 15:14 | PDOC ---
PROGRESS NOTES Date of Service DATE: 07/13/21 TIME: 15:10 Subjective Subjective No new complaints. Objective Objective Vital Signs Date Time Temp Pulse Resp B/P (MAP) Pulse Ox O2 Delivery O2 Flow Rate FiO2 07/13/21 13:35 93 Nasal Cannula 3.5 07/13/21 11:00 97.9 111 34 94/61 (72) 97.9 Physical Exam Physical Exam He is sitting up in bedside recliner and does not seem to be in any acute distress and he is using oxygen by nasal canula nd he had lumbar corset on somewhat loosely and he has been getting up and walking in his room. With his SOB with having back support brace on firmly coming in his way of walking more distances. Plan Plan of Care Agree with plans for transfer to rehab unit but I am not sure he can participate intensive therapy required for acute rehab unit stay. Comment Review of Relevant I have reviewed the following items ben (where applicable) has been applied. Labs Laboratory Tests Test 07/13/21 13:22 SARS-CoV-2 Antigen (Rapid) Negative (NEGATIVE) Laboratory Tests Test 07/13/21 13:22 SARS-CoV-2 Antigen (Rapid) Negative (NEGATIVE) Medications Current Medications Acetaminophen/ Hydrocodone Bitart (Lortab ) 1 tab PRN Q6HRS PRN PO MODERATE - SEVERE PAIN Last administered on 07/08/21at 09:37; Start 07/06/21 at 21:30; Stop 07/11/21 at 10:10; Status DC Ketorolac Tromethamine (Toradol 30mg Vial) 30 mg PRN Q6HRS PRN IVP INFLAMMATION Last administered on 07/11/21at 09:04; Start 07/06/21 at 21:30; Stop 07/11/21 at 21:29; Status DC Hydromorphone HCl (Dilaudid) 0.2 mg PRN Q2HRS PRN IVP PAIN Last administered on 07/13/21at 08:38; Start 07/06/21 at 21:30 Albuterol Sulfate (Ventolin Neb Soln) 2.5 mg PRN Q4HRS PRN NEB SHORTNESS OF BREATH Last administered on 07/12/21at 02:30; Start 07/06/21 at 21:45 Atorvastatin Calcium (Lipitor) 20 mg HS PO Last administered on 07/12/21at 21:28; Start 07/06/21 at 22:00 Albuterol/ Ipratropium (Duoneb) 3 ml RTQID NEB Last administered on 07/13/21 11:26; Start 07/07/21 at 08:00 Primidone (Mysoline) 50 mg BID PO Last administered on 07/13/21 08:37; Start 07/06/21 at 22:00 Roflumilast (Daliresp) 500 mcg DAILY PO Last administered on 07/13/21 08:37; Start 07/07/21 at 09:00 Clonazepam (KlonoPIN) 1 mg TID PO Last administered on 07/13/21 13:06; Start 07/06/21 at 22:00 Non-Formulary Medication (Omeprazole ) 1 cap DAILY PO ; Start 07/07/21 at 09:00; Status UNV Quetiapine Fumarate (SEROquel XR) 300 mg QHS PO Last administered on 07/12/21 21:28; Start 07/06/21 at 22:00 Acetaminophen (Tylenol) 650 mg PRN Q6HRS PRN PO MILD PAIN / TEMP > 100.3'F; Start 07/06/21 at 21:45 Lisinopril (Prinivil) 10 mg DAILY PO Last administered on 07/13/21 08:37; Start 07/07/21 at 09:00 Apixaban (Eliquis) 5 mg BID PO Last administered on 07/13/21 08:37; Start 07/06/21 at 22:00 Diltiazem HCl (Cardizem 24hr Cd) 120 mg DAILYBFRSUP PO Last administered on 07/12/21at 18:24; Start 07/07/21 at 17:00 Prednisone (Prednisone) 5 mg DAILY PO Last administered on 07/13/21 08:37; Start 07/07/21 at 09:00 Pantoprazole Sodium (Protonix) 40 mg DAILYAC PO Last administered on 07/13/21 08:37; Start 07/07/21 at 07:30 Influenza Virus Vaccine Quadrival (Flulaval Quad [id number] Syringe) 0.5 ml ONCE ONCE VAX IM Last administered on 07/07/21at 10:27; Start 07/07/21 at 09:00; Stop 07/07/21 at 09:01; Status DC Tizanidine HCl (Zanaflex) 4 mg Q8HRS PO Last administered on 07/13/21at 13:05; Start 07/07/21 at 15:00 Lidocaine (Lidoderm) 1 patch DAILY TD Last administered on 07/07/21at 15:50; Start 07/07/21 at 15:00 Miscellaneous (Lidoderm Patch Removal) 1 ea QHS MC Last administered on 07/12/21at 21:00; Start 07/07/21 at 21:00 Multi-Ingredient Mouthwash/Gargle (Gi Cocktail) 20 ml PRN QID PRN PO abdominal pain Last administered on 07/08/21at 20:00; Start 07/07/21 at 20:00 Metoprolol Tartrate (Lopressor Vial) 5 mg 1X ONCE IVP Last administered on 07/07/21at 20:09; Start 07/07/21 at 20:00; Stop 07/07/21 at 20:01; Status DC Albumin Human 100 ml @ 100 mls/hr 1X ONCE IV Last administered on 07/08/21at 04:15; Start 07/08/21 at 04:00; Stop 07/08/21 at 04:59; Status DC Hydromorphone HCl (Dilaudid) 0.4 mg 1X ONCE IVP Last administered on 07/08/21at 05:28; Start 07/08/21 at 04:00; Stop 07/08/21 at 04:01; Status DC Fentanyl Citrate (Fentanyl 2ml Vial) 25 mcg PRN Q5MIN PRN IVP MILD PAIN 1-3; Start 07/09/21 at 06:00; Stop 07/10/21 at 05:59; Status DC Fentanyl Citrate (Fentanyl 2ml Vial) 50 mcg PRN Q5MIN PRN IVP MODERATE PAIN 4- 6; Start 07/09/21 at 06:00; Stop 07/10/21 at 05:59; Status DC Morphine Sulfate (Morphine Sulfate) 1 mg PRN Q10MIN PRN IVP SEVERE PAIN 7-10; Start 07/09/21 at 06:00; Stop 07/10/21 at 05:59; Status DC Ringer's Solution 1,000 ml @ 30 mls/hr Q24H IV ; Start 07/09/21 at 06:00; Stop 07/09/21 at 17:59; Status DC Hydromorphone HCl (Dilaudid) 0.5 mg PRN Q10MIN PRN IVP SEVERE PAIN 7-10, 2nd CHOICE; Start 07/09/21 at 06:00; Stop 07/10/21 at 05:59; Status DC Prochlorperazine Edisylate (Compazine) 5 mg PACU PRN PRN IVP NAUSEA, MRX1; Start 07/09/21 at 06:00; Stop 07/10/21 at 05:59; Status DC Albuterol/ Ipratropium (Duoneb) 3 ml RTQID NEB ; Start 07/08/21 at 16:00; Status Cancel Magnesium Hydroxide (Milk Of Magnesia) 2,400 mg PRN DAILY PRN PO CONSTIPATION; Start 07/09/21 at 10:15 Senna/Docusate Sodium (Senna Plus) 1 tab BID PO Last administered on 07/12/21at 21:27; Start 07/09/21 at 10:15 Sodium Monofluorophosphate (Fleet Adult) 133 ml PRN DAILY PRN NM CONSTIPATION; Start 07/09/21 at 10:15 Lorazepam (Ativan) 0.25 mg PRN Q6HRS PRN PO ANXIETY / AGITATION Last administered on 07/12/21at 08:15; Start 07/10/21 at 13:15 Morphine Sulfate (Morphine Sulfate) 2 mg 1X ONCE IVP Last administered on 07/10/21at 17:46; Start 07/10/21 at 18:00; Stop 07/10/21 at 18:01; Status DC Oxycodone/ Acetaminophen (Percocet 10/325) 1 tab PRN Q4HRS PRN PO MODERATE PAIN 4-6 Last administered on 07/13/21at 13:05; Start 07/11/21 at 10:15 Methocarbamol (Robaxin) 500 mg TID PRN PO MUSCLE SPASMS Last administered on 07/13/21at 08:37; Start 07/11/21 at 10:15 Vitamin D (Vitamin D3) 1,000 unit DAILY PO Last administered on 07/13/21at 08:37; Start 07/11/21 at 14:00 Lorazepam (Ativan) 0.5 mg PRN Q6HRS PRN PO ANXIETY / AGITATION Last administered on 07/13/21at 13:05; Start 07/12/21 at 12:00 Active Scripts Active Oxycodone Hcl Immed.release (Oxycodone Hcl) 5 Mg Tablet 30 Mg PO PRN Q6HRS PRN 15 Days Dexamethasone 4 Mg Tablet 1 Tab PO DAILY 7 Days Klonopin (Clonazepam) 1 Mg Tablet 1 Mg PO TID 30 Days Reported Seroquel (Quetiapine Fumarate) 300 Mg Tablet 1 Tab PO QHS Mysoline (Primidone) 50 Mg Tablet 1 Tab PO BID 30 Days Duoneb 0.5-3(2.5) Mg/3 Ml (Albuterol/Ipratropium) 3 Ml Ampul.neb 3 Ml NEB QID Atorvastatin Calcium 20 Mg Tablet 1 Tab PO HS Omeprazole 40 Mg Capsule.dr 1 Cap PO DAILY Alendronate Sodium 70 Mg Tablet 70 Mg PO WEEKLY Daliresp (Roflumilast) 500 Mcg Tablet 500 Mcg PO DAILY Albuterol Sulfate Neb Soln (Albuterol Sulfate) 2.5 Mg/3 Ml Vial.neb 1 Vial NEB PRN Q4HRS Vitals/I & O Vital Sign - Last 24 Hours 07/12/21 07/12/21 07/12/21 07/12/21 15:43 15:50 18:24 18:24 Pulse 109 Resp 14 B/P (MAP) 138/87 Pulse Ox 91 91 O2 Delivery Nasal Cannula Nasal Cannula Nasal Cannula O2 Flow Rate 3.5 3.5 3.5 07/12/21 07/12/21 07/12/21 07/12/21 19:00 19:50 20:44 22:55 Temp 98.4 98.0 98.4 98.0 Pulse 113 112 Resp 26 22 B/P (MAP) 163/102 (122) 149/91 (110) Pulse Ox 92 90 90 O2 Delivery Nasal Cannula Nasal Cannula Nasal Cannula Nasal Cannula O2 Flow Rate 5.0 3.5 3.5 5.0 07/13/21 07/13/21 07/13/21 07/13/21 02:18 03:00 03:49 07:00 Temp 98.1 97.8 98.1 97.8 Pulse 127 114 Resp 34 34 B/P (MAP) 124/67 (86) 114/77 (89) Pulse Ox 93 92 92 93 O2 Delivery Nasal Cannula Nasal Cannula Nasal Cannula Nasal Cannula O2 Flow Rate 3.5 5.0 5.0 5.0 07/13/21 07/13/21 07/13/21 07/13/21 07:47 08:00 08:37 08:37 Pulse 114 B/P (MAP) 114/77 Pulse Ox 92 92 O2 Delivery Nasal Cannula Nasal Cannula Nasal Cannula O2 Flow Rate 3.5 3.5 3.5 07/13/21 07/13/21 07/13/21 07/13/21 08:38 09:07 09:07 11:00 Temp 97.9 97.9 Pulse 111 Resp 34 B/P (MAP) 94/61 (72) Pulse Ox 92 92 92 92 O2 Delivery Nasal Cannula Nasal Cannula Nasal Cannula Nasal Cannula O2 Flow Rate 3.5 3.5 3.5 5.0 07/13/21 07/13/21 07/13/21 11:26 13:05 13:35 Pulse Ox 93 93 93 O2 Delivery Nasal Cannula Nasal Cannula Nasal Cannula O2 Flow Rate 3.5 3.5 3.5 Justifications for Admission Other Justification JORGE OWEN MD Jul 13, 2021 15:14
[2021-07-13 19:15] VITALS: BP 152/92
[2021-07-13] MEDS: PATCH REMOVAL. MC SCH (21:30)
[2021-07-13] MEDS: ATORVASTATIN CALCIUM 20 MG TABLET PO SCH (21:31)
[2021-07-13] MEDS: GABAPENTIN 300 MG CAPSULE. PO SCH (21:31)
[2021-07-13] MEDS: QUEtiapine 300 MG TAB.ER.24H. PO SCH (22:15)
[2021-07-13 22:54] VITALS: BP 160/92
[2021-07-14] VITALS (20 sets, daily range): BP systolic 61–173; BP diastolic 32–95
[2021-07-14] MEDS: ALBUTEROL SULFATE 2.5 MG/3 ML NEBU. NEB PRN ×2 (05:47→23:21)
[2021-07-14] MEDS: tiZANidine 4 MG TABLET. PO SCH ×2 (05:48→08:46)
[2021-07-14] MEDS: oxyCODONE/APAP 10/325 1 TAB TABLET PO PRN ×3 (05:48→22:21)
[2021-07-14] MEDS: IPRATRPIUM/ALBUTEROL 0.5/2.5MG 3 ML NEBU. NEB SCH ×4 (07:34→20:00)
[2021-07-14] MEDS: LISINOPRIL 10 MG TABLET PO SCH (07:40)
[2021-07-14] MEDS ORDERED: IV NORMAL SALINE 1000ML BAG 1,000 ML IV ONE ×2 (07:45→09:15)
--- NOTE | 2021-07-14 08:37 | PDOC ---
PULMONARY PROGRESS NOTES DATE: 07/14/21 TIME: 08:36 Subjective Patient not more short of air, currently on his baseline oxygen supplementation Vitals Vital Signs Date Time Temp Pulse Resp B/P (MAP) Pulse Ox O2 Delivery O2 Flow Rate FiO2 07/14/21 08:25 22 107/56 (73) Nasal Cannula 3.5 07/14/21 07:34 90 07/14/21 07:00 97.3 115 97.3 ROS: No Nausea, No Chest Pain, No Abdominal Pain, No Increase Cough General: Alert Lungs: Clear Cardiovascular: S1, S2 Abdomen: Soft, Non-tender Neuro Exam: Alert Extremities: No Edema, Other Labs Laboratory Tests Test 07/13/21 13:22 SARS-CoV-2 Antigen (Rapid) Negative (NEGATIVE) Laboratory Tests Test 07/13/21 13: SARS-CoV-2 Antigen (Rapid) Negative (NEGATIVE) Medications Active Scripts Medications Dose Route/Sig Max Daily Dose Days Date Category Oxycodone Hcl Immed.release (Oxycodone Hcl) 5 Mg Tablet 30 Mg PO PRN Q6HRS PRN 15 06/15/21 Rx Dexamethasone 4 Mg Tablet 1 Tab PO DAILY 7 06/12/21 Rx Klonopin (Clonazepam) 1 Mg Tablet 1 Mg PO TID 30 06/12/21 Rx Seroquel (Quetiapine Fumarate) 300 Mg Tablet 1 Tab PO QHS 02/13/21 Reported Mysoline (Primidone) 50 Mg Tablet 1 Tab PO BID 30 02/13/21 Reported Duoneb 0.5-3(2.5) Mg/3 Ml (Albuterol/Ipratropium) 3 Ml Ampul.neb 3 Ml NEB QID 02/13/21 Reported Atorvastatin Calcium 20 Mg Tablet 1 Tab PO HS 02/13/21 Reported Omeprazole 40 Mg Capsule. 1 Cap PO DAILY 02/13/21 Reported Alendronate Sodium 70 Mg Tablet 70 Mg PO WEEKLY 02/13/21 Reported Daliresp (Roflumilast) 500 Mcg Tablet 500 Mcg PO DAILY 03/01/19 Reported Albuterol Sulfate Neb Soln (Albuterol Sulfate) 2.5 Mg/3 Ml Vial.neb 1 Vial NEB PRN Q4HRS 03/01/19 Reported Impression . IMPRESSION: 1. Chronic respiratory failure. 2. Chronic obstructive pulmonary disease. 3. Periods of hypoxemia related to recent application of lumbar corset. 4. Acute L1 vertebral body fracture. 5. Lumbar spondylosis prominent at L4-L5. Plan . Updated 07/13 Continue current support No need for antibiotics and steroids Incentive spirometry Okay to transfer or discharge home PLAN: 1. Continue oxygen supplementation. 2. DuoNeb. 3. No need for antibiotics and steroids. 4. We will follow as needed. I do appreciate the privilege in sharing in the patient's care. CLAUDIA DE JESUS MD Jul 14, 2021 08:36
[2021-07-14] MEDS: PANTOPRAZOLE 40 MG TABLET.DR. PO SCH (08:46)
[2021-07-14] MEDS: SENNOSIDES/DOCUSATE 8.6/50MG TABLET. PO SCH ×2 (08:46→20:30)
[2021-07-14] MEDS: predniSONE 5 MG TABLET PO SCH (08:46)
[2021-07-14] MEDS: PRIMIDONE 50 MG TABLET PO SCH ×2 (08:46→20:30)
[2021-07-14] MEDS: ROFLUMILAST 500 MCG TABLET. PO SCH (08:46)
[2021-07-14] MEDS: APIXABAN 5 MG TABLET. PO SCH ×2 (08:46→20:24)
[2021-07-14] MEDS: CHOLECALCIFEROL (VITAMIN D3) 1,000 UNIT TABLET PO SCH (08:46)
[2021-07-14] MEDS: GABAPENTIN 300 MG CAPSULE. PO SCH (08:46)
[2021-07-14] MEDS: clonazePAM 0.5 MG TABLET PO SCH ×3 (08:46→20:25)
[2021-07-14] MEDS: LIDOCAINE (700MG/PATCH) PATCH. TD SCH (08:48)
--- NOTE | 2021-07-14 08:50 | NUR ---
Patients blood pressure low, NS fluid bolus ordered and delivered to patient
--- NOTE | 2021-07-14 09:12 | NUR ---
Fluid bolus completed, patients blood pressure increased slightly but was still low, Dr. Cecilia gamino
--- NOTE | 2021-07-14 09:41 | PDOC ---
[employer] PROGRESS NOTE Date of Service DOS: DATE: 07/14/21 TIME: 09:34 Chief Complaint Chief Complaint Assessment/Plan Acute L1 compression fracture with mild retropulsion History of COPD home O2 of 3 L nasal cannula History of hypertension History of CAD History of asthma Pulmonology consult for management of his COPD. Attempt ambulation with TLSO brace if patient has pain then he will proceed with IR for kyphoplasty Neurosurgery consultappreciate recommendations. For now no surgical intervention. Pain specialist consult with Dr helms. IV n.p.o. pain control Pending vitamin D level PT OT [facility] Cardiac diet CODE STATUS full Discussed with RN and SW Disposition inpatient management as above DPOA: Undesignated History of Present Illness History of Present Illness 61-year-old male with past medical history of COPD, hypertension who presents from [facility] ED after a fall experiencing back pain after that fall. Back pain is 7 out of 10 normally for his chronic back pain but after this incident the pain is 10 out of 10. Patient states that he was at a hotel room adjusting the heater on top of his bed and then he slipped and fell. Patient states he landed on the lower side of his back. Denies any syncope or loss of consciousness or dizziness. Patient is on 3 L home O2 for his COPD. Patient did have Covid pneumonia 1 month ago. Denies fevers, chest pain, abdominal pain, diarrhea, bladder or bowel incontinence or numbness to his lower extremities. 07/08/2021 No acute events overnight. Patient seen and examined bedside complaining of some shortness of breath. Increasing requirements of O2 to 5 L nasal cannula. Will initiate breathing treatments as needed. Will obtain a cortisol level in the a.m. Patient states that he was taking prednisone 50 mg for his COPD. Patient's chart, labs, images were reviewed and discussed with RN 07/10/2021 No acute events overnight. Patient seen by Dr. Capellan and neurosurgery. Recommended for patient to try to ambulate with TLSO brace. Unfortunately patient was too much pain and also the TLSO is constricting his breathing. Patient requiring breathing treatments. 07/11/21 No acute events overnight. Pt continue to complain of pain during ambulation. Pending pulmonary evaluation. Still attempting to adjust brace so it does not affect his breathing. Patient's chart, labs, images were reviewed and discussed with RN 07/12/2021 No acute events overnight. No desats overnight. Patient requiring 3.5 L nasal cannula and saturating 95%. Patient continues to complain of pain with movement. Trouble breathing with TLSO brace. Will attempt to adjust the brace for comfort. No pending recommendations from pulmonology. Plan for discharge in the next 24 hours once brace is fitted so that patient is comfortable enough to go home.. Patient's chart, labs, images were reviewed and discussed with RN. 07/13: No acute events overnight. Still complains of lower back pain with movement. He also reports some bilateral thigh neuropathic pain. Will provide gabapentin. Per pulmonology, will continue duo nebs and oxygen as needed. medical staff services coordinator following to help with possible rehab placement. 07/14: Patient with complaints of bilateral thigh pain this morning. Also some hypertension noted, 60/44 mmHg. Provided 1 L normal saline with transient improvement in blood pressure. Will repeat normal saline bolus and placed in Trendelenburg position. Will discontinue medications that could be contributing to hypotension. Vitals/I&O Vitals/I&O: Vital Signs Date Time Temp Pulse Resp B/P (MAP) Pulse Ox O2 Delivery O2 Flow Rate FiO2 07/14/21 09:20 114 24 69/32 (44) 07/14/21 08:25 Nasal Cannula 3.5 07/14/21 07:34 90 07/14/21 07:00 97.3 97.3 Physical Exam General: Alert, Oriented X3, Cooperative Heart: Regular rate Lungs: Clear Abdomen: Normal bowel sounds Extremities: No clubbing Skin: No rashes Labs Labs: Laboratory Tests Test 07/13/21 13:22 SARS-CoV-2 Antigen (Rapid) Negative (NEGATIVE) Comment Review of Relevant I have reviewed the following items ben (where applicable) has been applied. Medications: Current Medications Medications (Trade) Dose Ordered Sig/Dayne Route PRN Reason Start Time Stop Time Status Last Admin Dose Admin Gabapentin (Neurontin) 300 mg TID PO 07/13/21 21:00 07/14/21 08:46 Sodium Chloride 1,000 ml @ 1,000 mls/hr 1X ONCE IV 07/14/21 07:45 07/14/21 08:44 DC 07/14/21 07:45 Sodium Chloride 1,000 ml @ 1,000 mls/hr 1X ONCE IV 07/14/21 09:15 07/14/21 10:14 07/14/21 09:19 Justifications for Admission Other Justification LISSETTE TOUSSAINT MD Jul 14, 2021 09:41
--- NOTE | 2021-07-14 10:06 | EKG ---
[facility] [address] [place] [address] Test Date: 2021-07-14 Test Time: 09:30:56 Pat Name: JUAN MEDINA Department: Room: 42[facility] Gender: M Gi Tech: NINO : 1960 Requested By: LISSETTE TOUSSAINT Order Number: [id number] Reading MD: Govind Taveras Measurements Intervals [place] Rate: 117 P: 47 OK: 142 QRS: 29 QRSD: 80 T: 52 QT: 332 QTc: 468 Interpretive Statements SINUS TACHYCARDIA INCOMPLETE RIGHT BUNDLE BRANCH BLOCK Electronically Signed On 07-15-2021 16:01:47 CDT by Govind Taveras
--- NOTE | 2021-07-14 10:17 | NUR ---
Second liter of fluid infused, SBP remains in the 70's Dr Brooks notified.
[2021-07-14] MEDS ORDERED: ALBUMIN HUMAN 5% 250 ML IV PRN (10:30)
[2021-07-14] MEDS: IV NORMAL SALINE 1000ML BAG 1,000 ML IV SCH ×2 (11:09→23:41)
--- NOTE | 2021-07-14 11:12 | NUR ---
Albumin infusede and SBP in the 100's RN updated
--- NOTE | 2021-07-14 16:43 | PDOC ---
PROGRESS NOTES Date of Service DATE: 07/14/21 TIME: 16:41 Subjective Subjective No new complaints. Objective Objective Vital Signs Date Time Temp Pulse Resp B/P (MAP) Pulse Ox O2 Delivery O2 Flow Rate FiO2 07/14/21 16:18 4.5 07/14/21 15:39 94 Nasal Cannula 07/14/21 15:00 98.8 121 20 138/82 (100) 98.8 Intake and Output 07/14/21 07:00 # Voids 4 Physical Exam Physical Exam He is resting sitting in bed side chair with back brace on and physical therapy did not see him today as he had some problems with hypertension. Plan Plan of Group Home with home health follow up when medically stable. Comment Review of Relevant I have reviewed the following items ben (where applicable) has been applied. Labs Laboratory Tests Test 07/13/21 09:00 07/13/21 13:22 SARS-CoV-2 RNA (RODOLFO) Negative (Negative) SARS-CoV-2 Antigen (Rapid) Negative (NEGATIVE) Medications Current Medications Acetaminophen/ Hydrocodone Bitart (Lortab 10) 1 tab PRN Q6HRS PRN PO MODERATE - SEVERE PAIN Last administered on 07/08/21 09:37; Start 07/06/21 at 21:30; Stop 07/11/21 at 10:10; Status DC Ketorolac Tromethamine (Toradol 30mg Vial) 30 mg PRN Q6HRS PRN IVP INFLAMMATION Last administered on 07/11/21at 09:04; Start 07/06/21 at 21:30; Stop 07/11/21 at 21:29; Status DC Hydromorphone HCl (Dilaudid) 0.2 mg PRN Q2HRS PRN IVP PAIN Last administered on 07/13/21at 08:38; Start 07/06/21 at 21:30 Albuterol Sulfate (Ventolin Neb Soln) 2.5 mg PRN Q4HRS PRN NEB SHORTNESS OF BREATH Last administered on 07/14/21at 05:47; Start 07/06/21 at 21:45 Atorvastatin Calcium (Lipitor) 20 mg HS PO Last administered on 07/13/21at 21:31; Start 07/06/21 at 22:00 Albuterol/ Ipratropium (Duoneb) 3 ml RTQID NEB Last administered on 07/14/21 15:38; Start 07/07/21 at 08:00 Primidone (Mysoline) 50 mg BID PO Last administered on 07/14/21 08:46; Start 07/06/21 at 22:00 Roflumilast (Daliresp) 500 mcg DAILY PO Last administered on 07/14/21 08:46; Start 07/07/21 at 09:00 Clonazepam (KlonoPIN) 1 mg TID PO Last administered on 07/14/21 13:09; Start 07/06/21 at 22:00 Non-Formulary Medication (Omeprazole ) 1 cap DAILY PO ; Start 07/07/21 at 09:00; Status UNV Quetiapine Fumarate (SEROquel XR) 300 mg QHS PO Last administered on 07/13/21 22:15; Start 07/06/21 at 22:00 Acetaminophen (Tylenol) 650 mg PRN Q6HRS PRN PO MILD PAIN / TEMP > 100.3'F; Start 07/06/21 at 21:45 Lisinopril (Prinivil) 10 mg DAILY PO Last administered on 07/13/21 08:37; Start 07/07/21 at 09:00 Apixaban (Eliquis) 5 mg BID PO Last administered on 07/14/21 08:46; Start 07/06/21 at 22:00 Diltiazem HCl (Cardizem 24hr Cd) 120 mg DAILYBFRSUP PO Last administered on 07/13/21 16:51; Start 07/07/21 at 17:00 Prednisone (Prednisone) 5 mg DAILY PO Last administered on 07/14/21 08:46; Start 07/07/21 at 09:00 Pantoprazole Sodium (Protonix) 40 mg DAILYAC PO Last administered on 07/14/21 08:46; Start 07/07/21 at 07:30 Influenza Virus Vaccine Quadrival (Flulaval Quad [id number] Syringe) 0.5 ml ONCE ONCE VAX IM Last administered on 07/07/21 10:27; Start 07/07/21 at 09:00; Stop 07/07/21 at 09:01; Status DC Tizanidine HCl (Zanaflex) 4 mg Q8HRS PO Last administered on 10/26/21at 08:46; Start 07/07/21 at 15:00; Stop 07/14/21 at 10:23; Status DC Lidocaine (Lidoderm) 1 patch DAILY TD Last administered on 07/07/21at 15:50; Start 07/07/21 at 15:00 Miscellaneous (Lidoderm Patch Removal) 1 ea QHS MC Last administered on 07/12/21at 21:00; Start 07/07/21 at 21:00 Multi-Ingredient Mouthwash/Gargle (Gi Cocktail) 20 ml PRN QID PRN PO abdominal pain Last administered on 07/08/21at 20:00; Start 07/07/21 at 20:00 Metoprolol Tartrate (Lopressor Vial) 5 mg 1X ONCE IVP Last administered on 07/07/21at 20:09; Start 07/07/21 at 20:00; Stop 07/07/21 at 20:01; Status DC Albumin Human 100 ml @ 100 mls/hr 1X ONCE IV Last administered on 07/08/21at 04:15; Start 07/08/21 at 04:00; Stop 07/08/21 at 04:59; Status DC Hydromorphone HCl (Dilaudid) 0.4 mg 1X ONCE IVP Last administered on 07/08/21at 05:28; Start 07/08/21 at 04:00; Stop 07/08/21 at 04:01; Status DC Fentanyl Citrate (Fentanyl 2ml Vial) 25 mcg PRN Q5MIN PRN IVP MILD PAIN 1-3; Start 07/09/21 at 06:00; Stop 07/10/21 at 05:59; Status DC Fentanyl Citrate (Fentanyl 2ml Vial) 50 mcg PRN Q5MIN PRN IVP MODERATE PAIN 4- 6; Start 07/09/21 at 06:00; Stop 07/10/21 at 05:59; Status DC Morphine Sulfate (Morphine Sulfate) 1 mg PRN Q10MIN PRN IVP SEVERE PAIN 7-10; Start 07/09/21 at 06:00; Stop 07/10/21 at 05:59; Status DC Ringer's Solution 1,000 ml @ 30 mls/hr Q24H IV ; Start 07/09/21 at 06:00; Stop 07/09/21 at 17:59; Status DC Hydromorphone HCl (Dilaudid) 0.5 mg PRN Q10MIN PRN IVP SEVERE PAIN 7-10, 2nd CHOICE; Start 07/09/21 at 06:00; Stop 07/10/21 at 05:59; Status DC Prochlorperazine Edisylate (Compazine) 5 mg PACU PRN PRN IVP NAUSEA, MRX1; Start 07/09/21 at 06:00; Stop 07/10/21 at 05:59; Status DC Albuterol/ Ipratropium (Duoneb) 3 ml RTQID NEB ; Start 07/08/21 at 16:00; Status Cancel Magnesium Hydroxide (Milk Of Magnesia) 2,400 mg PRN DAILY PRN PO CONSTIPATION; Start 07/09/21 at 10:15 Senna/Docusate Sodium (Senna Plus) 1 tab BID PO Last administered on 07/14/21at 08:46; Start 07/09/21 at 10:15 Sodium Monofluorophosphate (Fleet Adult) 133 ml PRN DAILY PRN CO CONSTIPATION; Start 07/09/21 at 10:15 Lorazepam (Ativan) 0.25 mg PRN Q6HRS PRN PO ANXIETY / AGITATION Last administered on 07/12/21at 08:15; Start 07/10/21 at 13:15 Morphine Sulfate (Morphine Sulfate) 2 mg 1X ONCE IVP Last administered on 07/10/21at 17:46; Start 07/10/21 at 18:00; Stop 07/10/21 at 18:01; Status DC Oxycodone/ Acetaminophen (Percocet 10/325) 1 tab PRN Q4HRS PRN PO MODERATE PAIN 4-6 Last administered on 07/14/21at 15:49; Start 07/11/21 at 10:15 Methocarbamol (Robaxin) 500 mg TID PRN PO MUSCLE SPASMS Last administered on 07/13/21at 16:51; Start 07/11/21 at 10:15; Stop 07/14/21 at 09:45; Status DC Vitamin D (Vitamin D3) 1,000 unit DAILY PO Last administered on 07/14/21at 08:46; Start 07/11/21 at 14:00 Lorazepam (Ativan) 0.5 mg PRN Q6HRS PRN PO ANXIETY / AGITATION Last administered on 07/13/21at 21:33; Start 07/12/21 at 12:00 Gabapentin (Neurontin) 300 mg TID PO Last administered on 07/14/21at 08:46; Start 07/13/21 at 21:00; Stop 07/14/21 at 09:43; Status DC Sodium Chloride 1,000 ml @ 1,000 mls/hr 1X ONCE IV Last administered on 07/14/21at 07:45; Start 07/14/21 at 07:45; Stop 07/14/21 at 08:44; Status DC Sodium Chloride 1,000 ml @ 1,000 mls/hr 1X ONCE IV Last administered on 07/14/21at 09:19; Start 07/14/21 at 09:15; Stop 07/14/21 at 10:14; Status DC Albumin Human 250 ml @ 62.5 mls/hr 1X PRN IV SEE COMMENTS Last administered on 07/14/21at 10:37; Start 07/14/21 at 10:30 Sodium Chloride 1,000 ml @ 75 mls/hr [id number] IV Last administered on 07/14/21at 11:09; Start 07/14/21 at 11:15 Active Scripts Active Oxycodone Hcl Immed.release (Oxycodone Hcl) 5 Mg Tablet 30 Mg PO PRN Q6HRS PRN 15 Days Dexamethasone 4 Mg Tablet 1 Tab PO DAILY 7 Days Klonopin (Clonazepam) 1 Mg Tablet 1 Mg PO TID 30 Days Reported Seroquel (Quetiapine Fumarate) 300 Mg Tablet 1 Tab PO QHS Mysoline (Primidone) 50 Mg Tablet 1 Tab PO BID 30 Days Duoneb 0.5-3(2.5) Mg/3 Ml (Albuterol/Ipratropium) 3 Ml Ampul.neb 3 Ml NEB QID Atorvastatin Calcium 20 Mg Tablet 1 Tab PO HS Omeprazole 40 Mg Capsule.dr 1 Cap PO DAILY Alendronate Sodium 70 Mg Tablet 70 Mg PO WEEKLY Daliresp (Roflumilast) 500 Mcg Tablet 500 Mcg PO DAILY Albuterol Sulfate Neb Soln (Albuterol Sulfate) 2.5 Mg/3 Ml Vial.neb 1 Vial NEB PRN Q4HRS Vitals/I & O Vital Sign - Last 24 Hours 07/13/21 07/13/21 07/13/21 07/13/21 16:51 16:51 17:21 19:15 Temp 98.1 98.1 Pulse 112 86 Resp 24 B/P (MAP) 124/62 152/92 (112) Pulse Ox 94 94 O2 Delivery Nasal Cannula Nasal Cannula Nasal Cannula O2 Flow Rate 3.5 3.5 3.5 07/13/21 07/13/21 07/13/21 07/13/21 20:10 20:39 21:33 22:16 Pulse Ox 92 O2 Delivery Nasal Cannula Nasal Cannula Nasal Cannula Nasal Cannula O2 Flow Rate 3.5 3.5 3.5 3.5 07/13/21 07/14/21 07/14/21 07/14/21 22:54 03:05 05:46 05:48 Temp 98.2 98.2 Pulse 117 111 Resp 20 B/P (MAP) 160/92 (114) Pulse Ox 91 94 O2 Delivery Nasal Cannula Nasal Cannula Nasal Cannula Nasal Cannula O2 Flow Rate 3.5 3.5 3.5 3.5 07/14/21 07/14/21 07/14/21 07/14/21 06:16 07:00 07:01 07:34 Temp 97.3 97.3 Pulse 115 Resp 22 22 B/P (MAP) 68/37 (47) 68/44 (52) Pulse Ox 89 90 O2 Delivery Nasal Cannula Nasal Cannula Nasal Cannula Nasal Cannula O2 Flow Rate 3.5 3.5 3.5 3.5 07/14/21 07/14/21 07/14/21 07/14/21 08:00 08:05 08:25 09:20 Pulse 114 Resp 22 22 24 B/P (MAP) 69/36 (47) 107/56 (73) 69/32 (44) O2 Delivery Venturi Mask Nasal Cannula Nasal Cannula O2 Flow Rate 12.0 3.5 3.5 07/14/21 07/14/21 07/14/21 07/14/21 09:20 09:25 09:30 09:35 B/P (MAP) 77/40 (52) 68/37 (47) 70/35 (47) 61/40 (47) 07/14/21 07/14/21 07/14/21 07/14/21 09:40 09:45 09:55 09:55 B/P (MAP) 79/44 (56) 65/36 (46) 61/40 (47) Pulse Ox 84 88 89 O2 Delivery Venturi Mask O2 Flow Rate 4.0 07/14/21 07/14/21 07/14/21 07/14/21 10:04 10:15 10:40 10:48 Pulse 109 115 Resp 22 B/P (MAP) 73/33 (46) 72/40 (51) 80/50 (60) 80/42 (55) Pulse Ox 90 90 O2 Delivery Venturi Mask Venturi Mask O2 Flow Rate 12.0 07/14/21 07/14/21 07/14/21 07/14/21 10:57 11:07 11:10 12:00 Pulse 115 115 120 B/P (MAP) 86/50 (62) 99/57 (71) 105/62 (76) Pulse Ox 87 90 90 91 O2 Delivery Venturi Mask Venturi Mask O2 Flow Rate 12.0 07/14/21 07/14/21 07/14/21 07/14/21 13:17 15:00 15:39 16:18 Temp 98.8 98.8 Pulse 121 Resp 20 B/P (MAP) 138/82 (100) Pulse Ox 93 94 O2 Delivery Nasal Cannula Nasal Cannula Nasal Cannula O2 Flow Rate 4.0 4.0 4.0 4.5 Justifications for Admission Other Justification JORGE OWEN MD Jul 14, 2021 16:42
[2021-07-14] MEDS: HYDROmorphone 2 MG/ML VIAL IVP PRN ×2 (18:06→23:34)
[2021-07-14] MEDS: QUEtiapine 300 MG TAB.ER.24H. PO SCH (20:24)
[2021-07-14] MEDS: LORazepam 0.5 MG TABLET PO PRN (20:25)
[2021-07-14] MEDS: ATORVASTATIN CALCIUM 20 MG TABLET PO SCH ×2 (20:25→22:25)
[2021-07-14] MEDS: PATCH REMOVAL. MC SCH (21:00)
--- NOTE | 2021-07-14 22:00 | NUR ---
Patient verbalized he did not want any meds until 2200, so pain medication was included. Will continue to monitor .
[2021-07-15 03:05] VITALS: BP 140/88
[2021-07-15] MEDS: LORazepam 0.5 MG TABLET PO PRN (03:29)
[2021-07-15] MEDS: oxyCODONE/APAP 10/325 1 TAB TABLET PO PRN ×3 (03:29→13:37)
[2021-07-15] MEDS: ALBUTEROL SULFATE 2.5 MG/3 ML NEBU. NEB PRN (04:04)
[2021-07-15] MEDS: HYDROmorphone 2 MG/ML VIAL IVP PRN ×2 (05:51→10:21)
[2021-07-15 07:00] VITALS: BP 166/102
[2021-07-15] MEDS: IPRATRPIUM/ALBUTEROL 0.5/2.5MG 3 ML NEBU. NEB SCH ×4 (07:33→20:00)
[2021-07-15] MEDS: LIDOCAINE (700MG/PATCH) PATCH. TD SCH (08:10)
[2021-07-15] MEDS: clonazePAM 0.5 MG TABLET PO SCH ×2 (08:43→13:38)
[2021-07-15] MEDS: ROFLUMILAST 500 MCG TABLET. PO SCH (08:43)
[2021-07-15] MEDS: predniSONE 5 MG TABLET PO SCH (08:43)
[2021-07-15] MEDS: LISINOPRIL 10 MG TABLET PO SCH (08:43)
[2021-07-15] MEDS: PANTOPRAZOLE 40 MG TABLET.DR. PO SCH (08:44)
[2021-07-15] MEDS: PRIMIDONE 50 MG TABLET PO SCH (08:44)
[2021-07-15] MEDS: SENNOSIDES/DOCUSATE 8.6/50MG TABLET. PO SCH (08:44)
[2021-07-15] MEDS: APIXABAN 5 MG TABLET. PO SCH (08:44)
[2021-07-15] MEDS: CHOLECALCIFEROL (VITAMIN D3) 1,000 UNIT TABLET PO SCH (08:44)
[2021-07-15 11:00] VITALS: BP 169/96
--- NOTE | 2021-07-15 11:29 | PDOC ---
[employer] PROGRESS NOTE Date of Service DOS: DATE: 07/15/21 TIME: 11:25 Chief Complaint Chief Complaint Assessment/Plan Acute L1 compression fracture with mild retropulsion History of COPD home O2 of 3 L nasal cannula History of hypertension History of CAD History of asthma Pulmonology consult for management of his COPD. Attempt ambulation with TLSO brace if patient has pain then he will proceed with IR for kyphoplasty Neurosurgery consultappreciate recommendations. For now no surgical intervention. Pain specialist consult with Dr helms. IV n.p.o. pain control Pending vitamin D level PT OT evaluation [facility] Cardiac diet CODE STATUS full Discussed with RN and SW Disposition inpatient management as above DPOA: Undesignated History of Present Illness History of Present Illness 61-year-old male with past medical history of COPD, hypertension who presents from [facility] ED after a fall experiencing back pain after that fall. Back pain is 7 out of 10 normally for his chronic back pain but after this incident the pain is 10 out of 10. Patient states that he was at a hotel room adjusting the heater on top of his bed and then he slipped and fell. Patient states he landed on the lower side of his back. Denies any syncope or loss of consciousness or dizziness. Patient is on 3 L home O2 for his COPD. Patient did have Covid pneumonia 1 month ago. Denies fevers, chest pain, abdominal pain, diarrhea, bladder or bowel incontinence or numbness to his lower extremities. 07/08/2021 No acute events overnight. Patient seen and examined bedside complaining of some shortness of breath. Increasing requirements of O2 to 5 L nasal cannula. Will initiate breathing treatments as needed. Will obtain a cortisol level in the a.m. Patient states that he was taking prednisone 50 mg for his COPD. Patient's chart, labs, images were reviewed and discussed with RN 07/10/2021 No acute events overnight. Patient seen by Dr. Capellan and neurosurgery. Recommended for patient to try to ambulate with TLSO brace. Unfortunately patient was too much pain and also the TLSO is constricting his breathing. Patient requiring breathing treatments. 07/11/21 No acute events overnight. Pt continue to complain of pain during ambulation. Pending pulmonary evaluation. Still attempting to adjust brace so it does not affect his breathing. Patient's chart, labs, images were reviewed and discussed with RN 07/12/2021 No acute events overnight. No desats overnight. Patient requiring 3.5 L nasal cannula and saturating 95%. Patient continues to complain of pain with movement. Trouble breathing with TLSO brace. Will attempt to adjust the brace for comfort. No pending recommendations from pulmonology. Plan for discharge in the next 24 hours once brace is fitted so that patient is comfortable enough to go home.. Patient's chart, labs, images were reviewed and discussed with RN. 07/13: No acute events overnight. Still complains of lower back pain with movement. He also reports some bilateral thigh neuropathic pain. Will provide gabapentin. Per pulmonology, will continue duo nebs and oxygen as needed. director of cloud services following to help with possible rehab placement. 07/14: Patient with complaints of bilateral thigh pain this morning. Also some hypertension noted, 60/44 mmHg. Provided 1 L normal saline with transient improvement in blood pressure. Will repeat normal saline bolus and placed in Trendelenburg position. Will discontinue medications that could be contributing to hypotension. 07/15: Hypotension resolved after discontinuation of the two muscle relaxers he had been receiving while inpatient. Sitting in bedside recliner with back brace. Still with complaints of bilateral thigh pain, burning in nature. Will initiate pregabalin. He is anxious to begin rehab. Clinically he has been accepted at [facility]; awaiting insurance authorization. Will for discharge accordingly. Greater than 30 minutes spent managing the discharge of this patient. Vitals/I&O Vitals/I&O: Vital Signs Date Time Temp Pulse Resp B/P (MAP) Pulse Ox O2 Delivery O2 Flow Rate FiO2 07/15/21 11:00 97.8 130 20 169/96 (120) 92 Nasal Cannula 4.0 97.8 I & O 07/14/21 07/14/21 07/15/21 15:00 23:00 07:00 Intake Total 360 ml Balance 360 ml Physical Exam General: Alert, Oriented X3, Cooperative, No acute distress Heart: Regular rate Lungs: Clear Abdomen: Normal bowel sounds Extremities: No clubbing Skin: No rashes Comment Review of Relevant I have reviewed the following items ben (where applicable) has been applied. Justifications for Admission Other Justification LISSETTE TOUSSAINT MD Jul 15, 2021 11:29
--- NOTE | 2021-07-15 11:31 | PDOC3 ---
Discharge Summary Visit Information Date of Admission: Jul 07, 2021 Date of Discharge: Jul 15, 2021 Brief Hospital Course Allergies Allergies Coded Allergies Type Severity Reaction Last Updated Verified lactose Allergy Intermediate 07/10/21 Yes Vital Signs Vital Signs Date Time Temp Pulse Resp B/P (MAP) Pulse Ox O2 Delivery O2 Flow Rate FiO2 07/15/21 11:00 97.8 130 20 169/96 (120) 92 Nasal Cannula 4.0 97.8 Lab Results Laboratory Tests Test 07/13/21 13:22 SARS-CoV-2 Antigen (Rapid) Negative (NEGATIVE) Brief Hospital Course Mr. Schrader is a 61 old male who presented with: Acute L1 compression fracture with mild retropulsion History of COPD History of hypertension History of CAD History of asthma 61-year-old male with past medical history of COPD, hypertension who presents from [facility] ED after a fall experiencing back pain after that fall. Back pain is 7 out of 10 normally for his chronic back pain but after this incident the pain is 10 out of 10. Patient states that he was at a hotel room adjusting the heater on top of his bed and then he slipped and fell. Patient states he landed on the lower side of his back. Denies any syncope or loss of consciousness or dizziness. Patient is on 3 L home O2 for his COPD. Patient did have Covid pneumonia 1 month ago. Denies fevers, chest pain, abdominal pain, diarrhea, bladder or bowel incontinence or numbness to his lower extremities. 07/08/2021 No acute events overnight. Patient seen and examined bedside complaining of some shortness of breath. Increasing requirements of O2 to 5 L nasal cannula. Will initiate breathing treatments as needed. Will obtain a cortisol level in the a.m. Patient states that he was taking prednisone 50 mg for his COPD. Patient's chart, labs, images were reviewed and discussed with RN 07/10/2021 No acute events overnight. Patient seen by Dr. Capellan and neurosurgery. Recommended for patient to try to ambulate with TLSO brace. Unfortunately patient was too much pain and also the TLSO is constricting his breathing. Patient requiring breathing treatments. 07/11/21 No acute events overnight. Pt continue to complain of pain during ambulation. Pending pulmonary evaluation. Still attempting to adjust brace so it does not affect his breathing. Patient's chart, labs, images were reviewed and discussed with RN 07/12/2021 No acute events overnight. No desats overnight. Patient requiring 3.5 L nasal cannula and saturating 95%. Patient continues to complain of pain with movement. Trouble breathing with TLSO brace. Will attempt to adjust the brace for comfort. No pending recommendations from pulmonology. Plan for discharge in the next 24 hours once brace is fitted so that patient is comfortable enough to go home.. Patient's chart, labs, images were reviewed and discussed with RN. 07/13: No acute events overnight. Still complains of lower back pain with movement. He also reports some bilateral thigh neuropathic pain. Will provide gabapentin. Per pulmonology, will continue duo nebs and oxygen as needed. customer services coordinator following to help with possible rehab placement. 07/14: Patient with complaints of bilateral thigh pain this morning. Also some hypertension noted, 60/44 mmHg. Provided 1 L normal saline with transient improvement in blood pressure. Will repeat normal saline bolus and placed in Trendelenburg position. Will discontinue medications that could be contributing to hypotension. 07/15: Hypotension resolved after discontinuation of the two muscle relaxers he had been receiving while inpatient. Sitting in bedside recliner with back brace. Still with complaints of bilateral thigh pain, burning in nature. Will initiate pregabalin. He is anxious to begin rehab. Clinically he has been accepted at [facility]; awaiting insurance authorization. Will for discharge accordingly. Greater than 30 minutes spent managing the discharge of this patient. Discharge Information Condition at Discharge: Stable Disposition/Orders: D/C to Another Facility Scheduled Albuterol Sulfate (Albuterol Sulfate Neb Soln) 2.5 Mg/3 Ml Vial.neb, 1 VIAL NEB PRN Q4HRS for Dx copd, #50 (Reported) Entered as Reported by: Kayley Burch on 03/01/19 1518 Last Action: Continued on 07/06/212136 by RAFAEL SRIVASTAVA Alendronate Sodium (Alendronate Sodium) 70 Mg Tablet, 70 MG PO WEEKLY for osteoporosis, (Reported) Entered as Reported by: Roddy Cox on 02/13/21 0630 Atorvastatin Calcium (Atorvastatin Calcium) 20 Mg Tablet, 1 TAB PO HS for cholesterol, #30 Ref 5 (Reported) Entered as Reported by: Roddy Cox on 02/13/21 0645 Last Action: Continued on 07/06/212136 by RAFAEL SRIVASTAVA Clonazepam (Klonopin) 1 Mg Tablet, 1 MG PO TID for anxiety for 30 Days, #90 Prescribed by: CHEMO CARBALLO on 06/12/21 1058 Last Action: Converted on 07/06/212136 by RAFAEL SRIVASTAVA Dexamethasone (Dexamethasone) 4 Mg Tablet, 1 TAB PO DAILY for covid 19 pneumonia for 7 Days, #7 Prescribed by: CHEMO CARBALLO on 06/12/21 1056 Ipratropium/Albuterol Sulfate (Duoneb 0.5-3(2.5) Mg/3 Ml) 3 Ml Ampul.neb, 3 ML NEB QID for copd, (Reported) Entered as Reported by: Roddy Cox on 02/13/2145 Last Action: Continued on 07/06/212136 by RAFAEL SRIVASTAVA Omeprazole (Omeprazole) 40 Mg Capsule.dr, 1 CAP PO DAILY for gerd, #30 Ref 3 (Reported) Entered as Reported by: Roddy Cox on 02/13/21 0634 Last Action: Converted on 07/06/212136 by RAFAEL SRIVASTAVA Primidone (Mysoline) 50 Mg Tablet, 1 TAB PO BID for seizure for 30 Days, #60 Ref 0 (Reported) Entered as Reported by: Roddy Cox on 02/13/2145 Last Action: Continued on 07/06/212136 by RAFAEL SRIVASTAVA Quetiapine Fumarate (Seroquel) 300 Mg Tablet, 1 TAB PO QHS for antipsychotic, #30 Ref 1 (Reported) Entered as Reported by: Roddy Cox on 02/13/2145 Last Action: Converted on 07/06/212136 by RAFAEL SRIVASTAVA Roflumilast (Daliresp) 500 Mcg Tablet, 500 MCG PO DAILY for copd, (Reported) Entered as Reported by: Kayley Burch on 03/01/19 1518 Last Action: Continued on 07/06/212136 by RAFAEL SRIVASTAVA Scheduled PRN Oxycodone Hcl (Oxycodone Hcl Immed.release ) 5 Mg Tablet, 30 MG PO PRN Q6HRS PRN for PAIN for 15 Days, #60 Ref 0 Prescribed by: CHEMO CARBALLO on 06/15/21 0938 Justicifation of Admission Dx: Justifications for Admission: Justification of Admission Dx: Yes CHF: Cardiac Arrhythmias Acute COPD Exacerbation: Acute COPD Exacerbation LISSETTE TOUSSAINT MD Jul 15, 2021 11:31
--- NOTE | 2021-07-15 11:35 | SNU/HH DC ---
DISCHARGE ORDERS DISCHARGE INFORMATION: DISCHARGE DATE: Jul 15, 2021 CONDITION ON DISCHARGE: Stable CODE STATUS: Code Status: Full CARE HOME: SNF STAY <30 DAYS: Yes POST DISCHARGE ORDERS: ACTIVITY ORDERS: Activity as tolerated WEIGHT BEARING STATUS: As tolerated DIET AFTER DISCHARGE: Cardiac WOUND/INCISION CARE: No wound care needed CHECKS AFTER DISCHARGE: CHECKS AFTER DISCHARGE: Check blood press - daily, Check your Temp as needed TREATMENT/EQUIPMENT ORDERS: ADAPTIVE EQUIPMENT NEEDED: Brace/splint, Walker RESPIRATORY EQUIPMENT NEEDED: Oxygen Physical Therapy For: Evalulation/Treatment Occupational Therapy For: Evaluation/Treatment DISCHARGE MEDICATIONS: Home Meds Active Scripts Oxycodone Hcl (OXYCODONE HCL IMMED.RELEASE ) 5 Mg Tablet, 30 MG PO PRN Q6HRS PRN for PAIN for 15 Days, #60 TAB 0 Refills Prov:KAIT MCLAIN MD 06/15/21 Dexamethasone (DEXAMETHASONE) 4 Mg Tablet, 1 TAB PO DAILY for covid 19 pneumonia for 7 Days, #7 TAB Prov:KAIT MCLAIN MD 06/12/21 Clonazepam (KLONOPIN) 1 Mg Tablet, 1 MG PO TID for anxiety for 30 Days, #90 TAB Prov:KAIT MCLAIN MD 06/12/21 Reported Medications Quetiapine Fumarate (SEROQUEL) 300 Mg Tablet, 1 TAB PO QHS for antipsychotic, #30 TAB 1 Refill 02/13/21 Primidone (MYSOLINE) 50 Mg Tablet, 1 TAB PO BID for seizure for 30 Days, #60 TAB 0 Refills 02/13/21 Ipratropium/Albuterol Sulfate (DUONEB 0.5-3(2.5) MG/3 ML) 3 Ml Ampul.neb, 3 ML NEB QID for copd, EACH 02/13/21 Atorvastatin Calcium (ATORVASTATIN CALCIUM) 20 Mg Tablet, 1 TAB PO HS for cholesterol, #30 TAB 5 Refills 02/13/21 Omeprazole (OMEPRAZOLE) 40 Mg Capsule.dr, 1 CAP PO DAILY for gerd, #30 CAP 3 Refills 02/13/21 Alendronate Sodium (ALENDRONATE SODIUM) 70 Mg Tablet, 70 MG PO WEEKLY for osteoporosis, TAB 02/13/21 Roflumilast (DALIRESP) 500 Mcg Tablet, 500 MCG PO DAILY for copd, TAB 03/01/19 Albuterol Sulfate (ALBUTEROL SULFATE NEB SOLN) 2.5 Mg/3 Ml Vial.neb, 1 VIAL NEB PRN Q4HRS for Dx copd, #50 VIAL 03/01/19 LISSETTE TOUSSAINT MD Jul 15, 2021 11:35
[2021-07-15] MEDS ORDERED: LISI10TA16 PO (11:59)
[2021-07-15] MEDS ORDERED: APIX5TAB PO (11:59)
[2021-07-15] MEDS ORDERED: DILT120C99 PO (11:59)
[2021-07-15] MEDS ORDERED: CLON1TAB PO (11:59)
[2021-07-15] MEDS ORDERED: PREG-9 PO (11:59)
[2021-07-15] MEDS ORDERED: OXYC1TAB22 PO (11:59)
[2021-07-15] MEDS ORDERED: PREGABALIN 75 MG CAPSULE PO SCH (12:00)
--- NOTE | 2021-07-15 12:31 | PDOC ---
PROGRESS NOTES Date of Service DATE: 07/15/21 TIME: 12:29 Subjective Subjective He admits oral narcotics are not providing any pain relief. Objective Objective Vital Signs Date Time Temp Pulse Resp B/P (MAP) Pulse Ox O2 Delivery O2 Flow Rate FiO2 07/15/21 11:22 93 Nasal Cannula 3.5 07/15/21 11:00 97.8 130 20 169/96 (120) 97.8 Intake and Output 07/15/21 07:00 Intake Total 360 ml Balance 360 ml Intake Oral 360 ml # Voids 16 Physical Exam Physical Exam He is alert,sitting in bedside recliner and had lumbar corset on loosely and no change with his neurological status. Plan Plan of Care Agree with plans for SNF transfer when medically stable. Comment Review of Relevant I have reviewed the following items ben (where applicable) has been applied. Labs Laboratory Tests Test 07/13/21 13:22 SARS-CoV-2 Antigen (Rapid) Negative (NEGATIVE) Medications Current Medications Acetaminophen/ Hydrocodone Bitart (Lortab ) 1 tab PRN Q6HRS PRN PO MODERATE - SEVERE PAIN Last administered on 07/08/21at 09:37; Start 07/06/21 at 21:30; Stop 07/11/21 at 10:10; Status DC Ketorolac Tromethamine (Toradol 30mg Vial) 30 mg PRN Q6HRS PRN IVP INFLAMMATION Last administered on 07/11/21at 09:04; Start 07/06/21 at 21:30; Stop 07/11/21 at 21:29; Status DC Hydromorphone HCl (Dilaudid) 0.2 mg PRN Q2HRS PRN IVP PAIN Last administered on 07/15/21at 10:21; Start 07/06/21 at 21:30 Albuterol Sulfate (Ventolin Neb Soln) 2.5 mg PRN Q4HRS PRN NEB SHORTNESS OF BREATH Last administered on 07/15/21at 04:04; Start 07/06/21 at 21:45 Atorvastatin Calcium (Lipitor) 20 mg HS PO Last administered on 07/14/21at 22:25; Start 07/06/21 at 22:00 Albuterol/ Ipratropium (Duoneb) 3 ml RTQID NEB Last administered on 07/15/21at 11:22; Start 07/07/21 at 08:00 Primidone (Mysoline) 50 mg BID PO Last administered on 07/15/21 08:44; Start 07/06/21 at 22:00 Roflumilast (Daliresp) 500 mcg DAILY PO Last administered on 07/15/21 08:43; Start 07/07/21 at 09:00 Clonazepam (KlonoPIN) 1 mg TID PO Last administered on 07/15/21 08:43; Start 07/06/21 at 22:00 Non-Formulary Medication (Omeprazole ) 1 cap DAILY PO ; Start 07/07/21 at 09:00; Status UNV Quetiapine Fumarate (SEROquel XR) 300 mg QHS PO Last administered on 07/14/21at 20:24; Start 07/06/21 at 22:00 Acetaminophen (Tylenol) 650 mg PRN Q6HRS PRN PO MILD PAIN / TEMP > 100.3'F; Start 07/06/21 at 21:45 Lisinopril (Prinivil) 10 mg DAILY PO Last administered on 07/15/21 08:43; Start 07/07/21 at 09:00 Apixaban (Eliquis) 5 mg BID PO Last administered on 07/15/21 08:44; Start 07/06/21 at 22:00 Diltiazem HCl (Cardizem 24hr Cd) 120 mg DAILYBFRSUP PO Last administered on 07/13/21at 16:51; Start 07/07/21 at 17:00 Prednisone (Prednisone) 5 mg DAILY PO Last administered on 07/15/21 08:43; Start 07/07/21 at 09:00 Pantoprazole Sodium (Protonix) 40 mg DAILYAC PO Last administered on 07/15/21 08:44; Start 07/07/21 at 07:30 Influenza Virus Vaccine Quadrival (Flulaval Quad [id number] Syringe) 0.5 ml ONCE ONCE VAX IM Last administered on 07/07/21 10:27; Start 07/07/21 at 09:00; Stop 07/07/21 at 09:01; Status DC Tizanidine HCl (Zanaflex) 4 mg Q8HRS PO Last administered on 07/14/21 08:46; Start 07/07/21 at 15:00; Stop 07/14/21 at 10:23; Status DC Lidocaine (Lidoderm) 1 patch DAILY TD Last administered on 07/07/21at 15:50; Start 07/07/21 at 15:00 Miscellaneous (Lidoderm Patch Removal) 1 ea QHS MC Last administered on 07/14/21at 21:00; Start 07/07/21 at 21:00 Multi-Ingredient Mouthwash/Gargle (Gi Cocktail) 20 ml PRN QID PRN PO abdominal pain Last administered on 07/08/21at 20:00; Start 07/07/21 at 20:00 Metoprolol Tartrate (Lopressor Vial) 5 mg 1X ONCE IVP Last administered on 07/07/21at 20:09; Start 07/07/21 at 20:00; Stop 07/07/21 at 20:01; Status DC Albumin Human 100 ml @ 100 mls/hr 1X ONCE IV Last administered on 07/08/21at 04:15; Start 07/08/21 at 04:00; Stop 07/08/21 at 04:59; Status DC Hydromorphone HCl (Dilaudid) 0.4 mg 1X ONCE IVP Last administered on 07/08/21a t 05:28; Start 07/08/21 at 04:00; Stop 07/08/21 at 04:01; Status DC Fentanyl Citrate (Fentanyl 2ml Vial) 25 mcg PRN Q5MIN PRN IVP MILD PAIN 1-3; Start 07/09/21 at 06:00; Stop 07/10/21 at 05:59; Status DC Fentanyl Citrate (Fentanyl 2ml Vial) 50 mcg PRN Q5MIN PRN IVP MODERATE PAIN 4- 6; Start 07/09/21 at 06:00; Stop 07/10/21 at 05:59; Status DC Morphine Sulfate (Morphine Sulfate) 1 mg PRN Q10MIN PRN IVP SEVERE PAIN 7-10; Start 07/09/21 at 06:00; Stop 07/10/21 at 05:59; Status DC Ringer's Solution 1,000 ml @ 30 mls/hr Q24H IV ; Start 07/09/21 at 06:00; Stop 07/09/21 at 17:59; Status DC Hydromorphone HCl (Dilaudid) 0.5 mg PRN Q10MIN PRN IVP SEVERE PAIN 7-10, 2nd CHOICE; Start 07/09/21 at 06:00; Stop 07/10/21 at 05:59; Status DC Prochlorperazine Edisylate (Compazine) 5 mg PACU PRN PRN IVP NAUSEA, MRX1; Start 07/09/21 at 06:00; Stop 07/10/21 at 05:59; Status DC Albuterol/ Ipratropium (Duoneb) 3 ml RTQID NEB ; Start 07/08/21 at 16:00; Status Cancel Magnesium Hydroxide (Milk Of Magnesia) 2,400 mg PRN DAILY PRN PO CONSTIPATION; Start 07/09/21 at 10:15 Senna/Docusate Sodium (Senna Plus) 1 tab BID PO Last administered on 07/15/21at 08:44; Start 07/09/21 at 10:15 Sodium Monofluorophosphate (Fleet Adult) 133 ml PRN DAILY PRN [place] CONSTIPATION; Start 07/09/21 at 10:15 Lorazepam (Ativan) 0.25 mg PRN Q6HRS PRN PO ANXIETY / AGITATION Last administered on 07/12/21at 08:15; Start 07/10/21 at 13:15 Morphine Sulfate (Morphine Sulfate) 2 mg 1X ONCE IVP Last administered on 07/10/21at 17:46; Start 07/10/21 at 18:00; Stop 07/10/21 at 18:01; Status DC Oxycodone/ Acetaminophen (Percocet 10/325) 1 tab PRN Q4HRS PRN PO MODERATE PAIN 4-6 Last administered on 07/15/21at 08:44; Start 07/11/21 at 10:15 Methocarbamol (Robaxin) 500 mg TID PRN PO MUSCLE SPASMS Last administered on 07/13/21at 16:51; Start 07/11/21 at 10:15; Stop 07/14/21 at 09:45; Status DC Vitamin D (Vitamin D3) 1,000 unit DAILY PO Last administered on 07/15/21at 08:44; Start 07/11/21 at 14:00 Lorazepam (Ativan) 0.5 mg PRN Q6HRS PRN PO ANXIETY / AGITATION Last administered on 07/15/21at 03:29; Start 07/12/21 at 12:00 Gabapentin (Neurontin) 300 mg TID PO Last administered on 07/14/21at 08:46; Start 07/13/21 at 21:00; Stop 07/14/21 at 09:43; Status DC Sodium Chloride 1,000 ml @ 1,000 mls/hr 1X ONCE IV Last administered on 07/14/21at 07:45; Start 07/14/21 at 07:45; Stop 07/14/21 at 08:44; Status DC Sodium Chloride 1,000 ml @ 1,000 mls/hr 1X ONCE IV Last administered on 07/14/21at 09:19; Start 07/14/21 at 09:15; Stop 07/14/21 at 10:14; Status DC Albumin Human 250 ml @ 62.5 mls/hr 1X PRN IV SEE COMMENTS Last administered on 07/14/21at 10:37; Start 07/14/21 at 10:30 Sodium Chloride 1,000 ml @ 75 mls/hr [id number] IV Last administered on 07/14/21at 23:41; Start 07/14/21 at 11:15; Stop 07/15/21 at 11:24; Status DC Pregabalin (Lyrica) 75 mg BID PO Last administered on 07/15/21at 11:39; Start 07/15/21 at 12:00 Active Scripts Active Lyrica (Pregabalin) 75 Mg Capsule 75 Mg PO BID 30 Days Percocet 10-325 Mg Tablet (Oxycodone/Acetaminophen) 1 Each Tablet 1 Tab PO PRN Q4HRS PRN Lisinopril 10 Mg Tablet 10 Mg PO DAILY Eliquis (Apixaban) 5 Mg Tablet 5 Mg PO BID Diltiazem 24HR Cd (Diltiazem Hcl) 120 Mg Cap.er.24h 120 Mg PO DAILYBFRSUP Klonopin (Clonazepam) 1 Mg Tablet 1 Mg PO TID 7 Days Reported Seroquel (Quetiapine Fumarate) 300 Mg Tablet 1 Tab PO QHS Mysoline (Primidone) 50 Mg Tablet 1 Tab PO BID 30 Days Duoneb 0.5-3(2.5) Mg/3 Ml (Albuterol/Ipratropium) 3 Ml Ampul.neb 3 Ml NEB QID Atorvastatin Calcium 20 Mg Tablet 1 Tab PO HS Omeprazole 40 Mg Capsule.dr 1 Cap PO DAILY Alendronate Sodium 70 Mg Tablet 70 Mg PO WEEKLY Daliresp (Roflumilast) 500 Mcg Tablet 500 Mcg PO DAILY Albuterol Sulfate Neb Soln (Albuterol Sulfate) 2.5 Mg/3 Ml Vial.neb 1 Vial NEB PRN Q4HRS Vitals/I & O Vital Sign - Last 24 Hours 07/14/21 07/14/21 07/14/21 07/14/21 13:17 15:00 15:39 16:18 Temp 98.8 98.8 Pulse 121 Resp 20 B/P (MAP) 138/82 (100) Pulse Ox 93 94 O2 Delivery Nasal Cannula Nasal Cannula Nasal Cannula O2 Flow Rate 4.0 4.0 4.0 4.5 07/14/21 07/14/21 07/14/21 07/14/21 18:06 18:35 19:15 20:00 Temp 98.4 98.4 Pulse 132 Resp 24 B/P (MAP) 161/82 (108) Pulse Ox 91 93 O2 Delivery Room Air Venturi Mask Nasal Cannula Nasal Cannula O2 Flow Rate 4.5 4.0 4.0 07/14/21 07/14/21 07/14/21 07/15/21 22:51 23:03 23:21 00:04 Temp 98.6 98.6 Pulse 122 Resp 18 B/P (MAP) 173/95 (121) Pulse Ox 92 92 92 O2 Delivery Venturi Mask Nasal Cannula Nasal Cannula Venturi Mask O2 Flow Rate 4.0 4.0 4.0 4.0 07/15/21 07/15/21 07/15/21 07/15/21 03:05 04:04 07:00 07:33 Temp 98.5 97.7 98.5 97.7 Pulse 51 126 Resp 24 20 B/P (MAP) 140/88 (105) 166/102 (123) Pulse Ox 95 93 98 O2 Delivery Nasal Cannula Nasal Cannula Nasal Cannula Nasal Cannula O2 Flow Rate 4.0 4.0 4.0 4.5 07/15/21 07/15/21 07/15/21 07/15/21 08:00 08:43 10:21 11:00 Temp 97.8 97.8 Pulse 126 130 Resp 20 B/P (MAP) 166/102 169/96 (120) Pulse Ox 98 92 O2 Delivery Venturi Mask Venturi Mask Nasal Cannula O2 Flow Rate 3.5 4.5 4.0 07/15/21 11:22 Pulse Ox 93 O2 Delivery Nasal Cannula O2 Flow Rate 3.5 Intake and Output 07/14/21 07/14/21 07/15/21 15:00 23:00 07:00 Intake Total 360 ml Balance 360 ml Justifications for Admission Other Justification JORGE OWEN MD Jul 15, 2021 12:31
--- NOTE | 2021-07-15 12:43 | PDOC ---
PROGRESS NOTES Date of Service DATE: 07/15/21 TIME: 12:41 Subjective Subjective Up in recliner with brace on continued back pain some pain in anterior thighs Objective Objective Vital Signs Date Time Temp Pulse Resp B/P (MAP) Pulse Ox O2 Delivery O2 Flow Rate FiO2 07/15/21 11:22 93 Nasal Cannula 3.5 07/15/21 11:00 97.8 130 20 169/96 (120) 97.8 Intake and Output 07/15/21 07:00 Intake Total 360 ml Balance 360 ml Intake Oral 360 ml # Voids 16 Physical Exam General: Alert, Oriented X3, Cooperative Neuro: Sensation intact, Other (normal strength in LE) Plan Plan of Care reviewed importance of wearing brace when up will arrange for follow up thoracolumbar x rays next week Comment Review of Relevant I have reviewed the following items ben (where applicable) has been applied. Labs Laboratory Tests Test 07/13/21 13:22 SARS-CoV-2 Antigen (Rapid) Negative (NEGATIVE) Medications Current Medications Acetaminophen/ Hydrocodone Bitart (Lortab ) 1 tab PRN Q6HRS PRN PO MODERATE - SEVERE PAIN Last administered on 07/08/21at 09:37; Start 07/06/21 at 21:30; Stop 07/11/21 at 10:10; Status DC Ketorolac Tromethamine (Toradol 30mg Vial) 30 mg PRN Q6HRS PRN IVP INFLAMMATION Last administered on 07/11/21 09:04; Start 07/06/21 at 21:30; Stop 07/11/21 at 21:29; Status DC Hydromorphone HCl (Dilaudid) 0.2 mg PRN Q2HRS PRN IVP PAIN Last administered on 07/15/21at 10:21; Start 07/06/21 at 21:30 Albuterol Sulfate (Ventolin Neb Soln) 2.5 mg PRN Q4HRS PRN NEB SHORTNESS OF BREATH Last administered on 07/15/21at 04:04; Start 07/06/21 at 21:45 Atorvastatin Calcium (Lipitor) 20 mg HS PO Last administered on 07/14/21at 22:25; Start 07/06/21 at 22:00 Albuterol/ Ipratropium (Duoneb) 3 ml RTQID NEB Last administered on 07/15/21 11:22; Start 07/07/21 at 08:00 Primidone (Mysoline) 50 mg BID PO Last administered on 07/15/21 08:44; Start 07/06/21 at 22:00 Roflumilast (Daliresp) 500 mcg DAILY PO Last administered on 07/15/21 08:43; Start 07/07/21 at 09:00 Clonazepam (KlonoPIN) 1 mg TID PO Last administered on 07/15/21 08:43; Start 07/06/21 at 22:00 Non-Formulary Medication (Omeprazole ) 1 cap DAILY PO ; Start 07/07/21 at 09:00; Status UNV Quetiapine Fumarate (SEROquel XR) 300 mg QHS PO Last administered on 07/14/21 20:24; Start 07/06/21 at 22:00 Acetaminophen (Tylenol) 650 mg PRN Q6HRS PRN PO MILD PAIN / TEMP > 100.3'F; Start 07/06/21 at 21:45 Lisinopril (Prinivil) 10 mg DAILY PO Last administered on 07/15/21 08:43; Start 07/07/21 at 09:00 Apixaban (Eliquis) 5 mg BID PO Last administered on 07/15/21 08:44; Start 07/06/21 at 22:00 Diltiazem HCl (Cardizem 24hr Cd) 120 mg DAILYBFRSUP PO Last administered on 07/13/21 16:51; Start 07/07/21 at 17:00 Prednisone (Prednisone) 5 mg DAILY PO Last administered on 07/15/21 08:43; Start 07/07/21 at 09:00 Pantoprazole Sodium (Protonix) 40 mg DAILYAC PO Last administered on 07/15/21 08:44; Start 07/07/21 at 07:30 Influenza Virus Vaccine Quadrival (Flulaval Quad [id number] Syringe) 0.5 ml ONCE ONCE VAX IM Last administered on 07/07/21 10:27; Start 07/07/21 at 09:00; Stop 07/07/21 at 09:01; Status DC Tizanidine HCl (Zanaflex) 4 mg Q8HRS PO Last administered on 10/26/21at 08:46; Start 07/07/21 at 15:00; Stop 07/14/21 at 10:23; Status DC Lidocaine (Lidoderm) 1 patch DAILY TD Last administered on 07/07/21at 15:50; Start 07/07/21 at 15:00 Miscellaneous (Lidoderm Patch Removal) 1 ea QHS MC Last administered on 07/14/21at 21:00; Start 07/07/21 at 21:00 Multi-Ingredient Mouthwash/Gargle (Gi Cocktail) 20 ml PRN QID PRN PO abdominal pain Last administered on 07/08/21at 20:00; Start 07/07/21 at 20:00 Metoprolol Tartrate (Lopressor Vial) 5 mg 1X ONCE IVP Last administered on at 20:09; Start 07/07/21 at 20:00; Stop 07/07/21 at 20:01; Status DC Albumin Human 100 ml @ 100 mls/hr 1X ONCE IV Last administered on 07/08/21at 04:15; Start 07/08/21 at 04:00; Stop 07/08/21 at 04:59; Status DC Hydromorphone HCl (Dilaudid) 0.4 mg 1X ONCE IVP Last administered on 07/08/21at 05:28; Start 07/08/21 at 04:00; Stop 07/08/21 at 04:01; Status DC Fentanyl Citrate (Fentanyl 2ml Vial) 25 mcg PRN Q5MIN PRN IVP MILD PAIN 1-3; Start 07/09/21 at 06:00; Stop 07/10/21 at 05:59; Status DC Fentanyl Citrate (Fentanyl 2ml Vial) 50 mcg PRN Q5MIN PRN IVP MODERATE PAIN 4- 6; Start 07/09/21 at 06:00; Stop 07/10/21 at 05:59; Status DC Morphine Sulfate (Morphine Sulfate) 1 mg PRN Q10MIN PRN IVP SEVERE PAIN 7-10; Start 07/09/21 at 06:00; Stop 07/10/21 at 05:59; Status DC Ringer's Solution 1,000 ml @ 30 mls/hr Q24H IV ; Start 07/09/21 at 06:00; Stop 07/09/21 at 17:59; Status DC Hydromorphone HCl (Dilaudid) 0.5 mg PRN Q10MIN PRN IVP SEVERE PAIN 7-10, 2nd CHOICE; Start 07/09/21 at 06:00; Stop 07/10/21 at 05:59; Status DC Prochlorperazine Edisylate (Compazine) 5 mg PACU PRN PRN IVP NAUSEA, MRX1; Start 07/09/21 at 06:00; Stop 07/10/21 at 05:59; Status DC Albuterol/ Ipratropium (Duoneb) 3 ml RTQID NEB ; Start 07/08/21 at 16:00; St atus Cancel Magnesium Hydroxide (Milk Of Magnesia) 2,400 mg PRN DAILY PRN PO CONSTIPATION; Start 07/09/21 at 10:15 Senna/Docusate Sodium (Senna Plus) 1 tab BID PO Last administered on 07/15/21at 08:44; Start 07/09/21 at 10:15 Sodium Monofluorophosphate (Fleet Adult) 133 ml PRN DAILY PRN [place] CONSTIPATION; Start 07/09/21 at 10:15 Lorazepam (Ativan) 0.25 mg PRN Q6HRS PRN PO ANXIETY / AGITATION Last administered on 07/12/21at 08:15; Start 07/10/21 at 13:15 Morphine Sulfate (Morphine Sulfate) 2 mg 1X ONCE IVP Last administered on 07/10/21at 17:46; Start 07/10/21 at 18:00; Stop 07/10/21 at 18:01; Status DC Oxycodone/ Acetaminophen (Percocet 10/325) 1 tab PRN Q4HRS PRN PO MODERATE PAIN 4-6 Last administered on 07/15/21at 08:44; Start 07/11/21 at 10:15 Methocarbamol (Robaxin) 500 mg TID PRN PO MUSCLE SPASMS Last administered on 07/13/21at 16:51; Start 07/11/21 at 10:15; Stop 07/14/21 at 09:45; Status DC Vitamin D (Vitamin D3) 1,000 unit DAILY PO Last administered on 07/15/21at 08:44; Start 07/11/21 at 14:00 Lorazepam (Ativan) 0.5 mg PRN Q6HRS PRN PO ANXIETY / AGITATION Last administered on 07/15/21at 03:29; Start 07/12/21 at 12:00 Gabapentin (Neurontin) 300 mg TID PO Last administered on 07/14/21at 08:46; Start 07/13/21 at 21:00; Stop 07/14/21 at 09:43; Status DC Sodium Chloride 1,000 ml @ 1,000 mls/hr 1X ONCE IV Last administered on 07/14/21at 07:45; Start 07/14/21 at 07:45; Stop 07/14/21 at 08:44; Status DC Sodium Chloride 1,000 ml @ 1,000 mls/hr 1X ONCE IV Last administered on 06/20 03/09at 09:19; Start 07/14/21 at 09:15; Stop 07/14/21 at 10:14; Status DC Albumin Human 250 ml @ 62.5 mls/hr 1X PRN IV SEE COMMENTS Last administered on 07/14/21at 10:37; Start 07/14/21 at 10:30 Sodium Chloride 1,000 ml @ 75 mls/hr [id number] IV Last administered on 07/14/21at 23:41; Start 07/14/21 at 11:15; Stop 07/15/21 at 11:24; Status DC Pregabalin (Lyrica) 75 mg BID PO Last administered on 07/15/21at 11:39; Start 07/15/21 at 12:00 Active Scripts Active Lyrica (Pregabalin) 75 Mg Capsule 75 Mg PO BID 30 Days Percocet 10-325 Mg Tablet (Oxycodone/Acetaminophen) 1 Each Tablet 1 Tab PO DC N Q4HRS PRN Lisinopril 10 Mg Tablet 10 Mg PO DAILY Eliquis (Apixaban) 5 Mg Tablet 5 Mg PO BID Diltiazem 24HR Cd (Diltiazem Hcl) 120 Mg Cap.er.24h 120 Mg PO DAILYBFRSUP Klonopin (Clonazepam) 1 Mg Tablet 1 Mg PO TID 7 Days Reported Seroquel (Quetiapine Fumarate) 300 Mg Tablet 1 Tab PO QHS Mysoline (Primidone) 50 Mg Tablet 1 Tab PO BID 30 Days Duoneb 0.5-3(2.5) Mg/3 Ml (Albuterol/Ipratropium) 3 Ml Ampul.neb 3 Ml NEB QID Atorvastatin Calcium 20 Mg Tablet 1 Tab PO HS Omeprazole 40 Mg Capsule.dr 1 Cap PO DAILY Alendronate Sodium 70 Mg Tablet 70 Mg PO WEEKLY Daliresp (Roflumilast) 500 Mcg Tablet 500 Mcg PO DAILY Albuterol Sulfate Neb Soln (Albuterol Sulfate) 2.5 Mg/3 Ml Vial.neb 1 Vial NEB PRN Q4HRS Vitals/I & O Vital Sign - Last 24 Hours 07/14/21 07/14/21 07/14/21 07/14/21 13:17 15:00 15:39 16:18 Temp 98.8 98.8 Pulse 121 Resp 20 B/P (MAP) 138/82 (100) Pulse Ox 93 94 O2 Delivery Nasal Cannula Nasal Cannula Nasal Cannula O2 Flow Rate 4.0 4.0 4.0 4.5 07/14/21 07/14/21 07/14/21 07/14/21 18:06 18:35 19:15 20:00 Temp 98.4 98.4 Pulse 132 Resp 24 B/P (MAP) 161/82 (108) Pulse Ox 91 93 O2 Delivery Room Air Venturi Mask Nasal Cannula Nasal Cannula O2 Flow Rate 4.5 4.0 4.0 07/14/21 07/14/21 07/14/21 07/15/21 22:51 23:03 23:21 00:04 Temp 98.6 98.6 Pulse 122 Resp 18 B/P (MAP) 173/95 (121) Pulse Ox 92 92 92 O2 Delivery Venturi Mask Nasal Cannula Nasal Cannula Venturi Mask O2 Flow Rate 4.0 4.0 4.0 4.0 07/15/21 07/15/21 07/15/21 07/15/21 03:05 04:04 07:00 07:33 Temp 98.5 97.7 98.5 97.7 Pulse 51 126 Resp 24 20 B/P (MAP) 140/88 (105) 166/102 (123) Pulse Ox 95 93 98 O2 Delivery Nasal Cannula Nasal Cannula Nasal Cannula Nasal Cannula O2 Flow Rate 4.0 4.0 4.0 4.5 07/15/21 07/15/21 07/15/21 07/15/21 08:00 08:43 10:21 11:00 Temp 97.8 97.8 Pulse 126 130 Resp 20 B/P (MAP) 166/102 169/96 (120) Pulse Ox 98 92 O2 Delivery Venturi Mask Venturi Mask Nasal Cannula O2 Flow Rate 3.5 4.5 4.0 07/15/21 11:22 Pulse Ox 93 O2 Delivery Nasal Cannula O2 Flow Rate 3.5 Intake and Output 07/14/21 07/14/21 07/15/21 15:00 23:00 07:00 Intake Total 360 ml Balance 360 ml Justifications for Admission Other Justification LIZ GRIFFIN MD Jul 15, 2021 12:43
[2021-07-15 15:00] VITALS: BP 174/111
[2021-07-15 15:24] VITALS: BP 169/117
== END 2021-07-15 18:50 | DRG 552 ==
LOC: 4 NORTH 20:00
PROVIDERS: ADMIT Internal Medicine; ATTEND Internal Medicine
DX: S32.018A Other fracture of first lumbar vertebra, initial encounter for closed fracture (principal); J96.11 Chronic respiratory failure with hypoxia; E44.0 Moderate protein-calorie malnutrition; F41.9 Anxiety disorder, unspecified; G89.29 Other chronic pain; I11.0 Hypertensive heart disease with heart failure; I25.10 Atherosclerotic heart disease of native coronary artery without angina pectoris; I50.9 Heart failure, unspecified; K21.9 Gastro-esophageal reflux disease without esophagitis; M47.816 Spondylosis without myelopathy or radiculopathy, lumbar region; M51.36 Other intervertebral disc degeneration, lumbar region; M81.0 Age-related osteoporosis without current pathological fracture; W06.XXXA Fall from bed, initial encounter; Z87.891 Personal history of nicotine dependence; Z99.81 Dependence on supplemental oxygen; Z20.822 Contact with and (suspected) exposure to COVID-19; Z88.8 Allergy status to other drugs, medicaments and biological substances; Z68.29 Body mass index [BMI] 29.0-29.9, adult; W01.0XXA Fall on same level from slipping, tripping and stumbling without subsequent striking against object, initial encounter; Y93.89 Activity, other specified; Y92.59 Other trade areas as the place of occurrence of the external cause; Y99.8 Other external cause status; J44.9 Chronic obstructive pulmonary disease, unspecified; Z90.49 Acquired absence of other specified parts of digestive tract; J45.909 Unspecified asthma, uncomplicated; E11.42 Type 2 diabetes mellitus with diabetic polyneuropathy
CPT/HCPCS: 36415; 71045; 72148; 80048; 80053; 82306; 82533; 83735; 84443; 85025; 85610; 87426; 90471; 90686; 93005; 94640; 94760; J1170; J1885; J2270; J3490; J7030; J7512; P9041; P9046; U0003; U0005; 97110-GP; 97116-GP; 97530-GO; G0378; J7613